=== PATIENT | male | born 1985 | race Caucasian/White ===

== ENCOUNTER 2016-11-17 08:10 | Emergency (ER) | payer SELFPAY ==
[~2016-11-17] VITALS: Ht 172.7 cm; Wt 80.0 kg
[2016-11-17 08:12] VITALS: BP 134/87; PULSE 92; RESP 24; TEMP 98.4; O2SAT 100
--- NOTE | 2016-11-17 08:17 | PD ---
HPI . left earache x 1 day Chief Complaint: ENT Complaint Time Seen by Provider: 08:17 Travel History International Travel<30 days: No Contact w/Intl Traveler<30days: No Traveled to known affect area: No History of Present Illness HPI 31-year-old male here with complaints of a left earache that started yesterday. Patient said that all of a sudden he developed some ear pain. He denies using Q-tips or sticking any objects into his ear. He does work outside. He denies any recent cold symptoms, fever or chills. He has no other complaints. PFSH Past Medical History Autoimmune Disease: No Blood Disorders: No Anxiety: Yes Depression: Yes Cancer: No Cardiovascular Problems: Yes Chest Pain: Yes Diabetes: No Diminished Hearing: No Deep Vein Thrombosis: Yes Endocrine: No Gastrointestinal Disorders: No Genitourinary: No Immune Disorder: No Implanted Vascular Access Dvce: No Musculoskeletal: No Neurologic: Yes Psychiatric: Yes Reproductive: No Respiratory: Yes (STATES HAS BLOOD CLOTS IN RIGHT LOWER LOBE; TAKES COUMADIN FOR THIS) Immunizations Current: Yes Myocardial Infarction: Yes Seizures: Yes (EPILEPSY) Thyroid Disease: No PNEUMOCCOCAL Vaccine (Year): 2 Past Surgical History Other Surgery: Yes Social History Alcohol Use: No Tobacco Use: Yes (1PPD) Substance Use: Yes (MARIJUANA DAILY) Allergies-Medications (Allergen,Severity, Reaction): Coded Allergies: Asparagus (Verified Allergy, Severe, HIVES, 11/17/16) Cantaloupe (Verified Allergy, Severe, HIVES, 11/17/16) Coconut (Verified Allergy, Severe, HIVES, 11/17/16) Depakote (Verified Allergy, Severe, SWELLING, 11/17/16) Dilantin (Verified Allergy, Severe, Rash/SWELLING, 11/17/16) Geodon (Verified Allergy, Severe, 11/17/16) Tegretol (Verified Allergy, Severe, 11/17/16) Phenobarbital (Verified Allergy, Unknown, 11/17/16) Uncoded Allergies: OKRA (Allergy, Severe, HIVES, 12/16/09) Reported Meds & Prescriptions Reported Meds & Active Scripts Active Amoxicillin 500 Mg Tab 500 Mg PO BID Cipro Hc Otic Drops (Ciprofloxacin/Hydrocortisone) 0.2-1% Susp 3 Drop LEFT EAR BID 7 Days Review of Systems General / Constitutional: No: Fever Eyes: No: Visual changes HENT: Positive: Earache, No: Headaches Cardiovascular: No: Chest Pain or Discomfort Respiratory: No: Shortness of Breath Gastrointestinal: No: Abdominal Pain Genitourinary: No: Dysuria Musculoskeletal: No: Pain Skin: No Rash Neurologic: No: Weakness Psychiatric: No: Depression Endocrine: No: Polydipsia Hematologic/Lymphatic: No: Easy Bruising Physical Exam Narrative GENERAL: AAO x 3, no acute distress, Well-nourished, well-developed patient. SKIN: Warm and dry. No visible rashes or bruising. HEAD: Normocephalic and atraumatic. EYES: No scleral icterus. No injection or drainage. ENT: No nasal drainage noted. Mucous membranes pink. Airway patent. Right TM normal. Left ear canal erythematous, edematous, mild purulence on exam. The TM is also bulging and erythematous. No posterior pharynx erythema, edema or exudates. No mastoid tenderness. There is tenderness with manipulation to the tragus. NECK: Supple, trachea midline. No JVD. No lymphadenopathy. CARDIOVASCULAR: Regular rate and rhythm without murmurs, gallops, or rubs. RESPIRATORY: Breath sounds equal bilaterally. No accessory muscle use. No rhonchi or rales. GASTROINTESTINAL: Visual inspection is normal EXTREMITIES: No cyanosis or edema. BACK: Nontender without obvious deformity. No CVA tenderness. PSYCH: AAO x 3, normal affect. Data Data Last Documented VS Vital Signs Date Time Temp Pulse Resp B/P Pulse Ox O2 Delivery O2 Flow Rate FiO2 11/17/16 08:12 98.4 92 24 134/87 100 Room Air [facility] Medical Decision Making Medical Screen Exam Complete: Yes Emergency Medical Condition: Yes Medical Record Reviewed: Yes Differential Diagnosis Left OM, left otitis media, less likely mastoiditis Narrative Course 31-year-old male here with complaints of a left earache that started yesterday. Patient said that all of a sudden he developed some ear pain. He denies using Q-tips or sticking any objects into his ear. He does work outside. He denies any recent cold symptoms, fever or chills. He has no other complaints. Patient seen and examined. He has obvious otitis externa on the left as well as otitis media. I recommend a course of antibiotics both oral and ear drops. I've discussed this with him. I recommend Tylenol and ibuprofen as needed for pain. I advised no poking into his ears. Patient verbalized understanding of instructions, questions were answered, and thanked me for their care. I advised them if their condition worsens, please return to the nearest emergency room for further care. Diagnosis Primary Impression: Left otitis externa Qualified Code: H60.312 - Acute diffuse otitis externa of left ear Additional Impression: Left otitis media Qualified Code: H66.92 - Left otitis media, unspecified chronicity, unspecified otitis media type Patient Instructions: General Instructions, Otitis Externa (ED), Otitis Media ( ED) Additional Instructions: Please return to emergency department if your symptoms return or worsen. Follow up with your primary care provider. Take medications as prescribed. Do not take any objects or Q-tips into your ears. Use Tylenol or Motrin as needed for pain. Med/Other Pt SpecificInfo: Prescription(s) given Scripts Amoxicillin 500 Mg [id number] Mg PO BID #20 TAB Ref 0 Prov:Barrington Philippe MD 11/17/16 Ciprofloxacin-Hydrocortisone Otic Drops (Cipro Hc Otic Drops)0.2-1% Susp3 Drop LEFT EAR BID 7 Days Ref 0 Prov:Barrington Philippe MD 11/17/16 Disposition: 01 DISCHARGE HOME Condition: Stable Catie Metz Nov 17, 2016 08:17
[2016-11-17] MEDS ORDERED: AMOX500T PO (08:20)
[2016-11-17] MEDS ORDERED: CIPRHC10A LEFT EAR (08:20)
== END 2016-11-17 08:39 | disposition home or self-care (01) ==
LOC: NEPK 08:10
DX: H66.92 Otitis media, unspecified, left ear (principal); H60.92 Unspecified otitis externa, left ear; I25.2 Old myocardial infarction; F17.210 Nicotine dependence, cigarettes, uncomplicated; Z86.718 Personal history of other venous thrombosis and embolism
CPT/HCPCS: 99282

== ENCOUNTER 2017-02-14 07:30 | Inpatient (IN) | payer SELFPAY ==
[~2017-02-14 07:30] MED LIST: AMOX500T PO; CIPRHC10A LEFT EAR
[2017-02-14 07:32] VITALS: BP 112/63; PULSE 124; TEMP 98.5; O2SAT 99
[2017-02-14 07:46] VITALS: BP 176/110; PULSE 88; RESP 25; O2SAT 100
[2017-02-14] MEDS ORDERED: SODIUM CHLOR 0.9% 1000 ML INJ 1,000 ML IV SCH (07:47)
[2017-02-14] MEDS ORDERED: ONDANSETRON HCL 4 MG/2 ML VIAL IVP ONE (08:00)
[2017-02-14] MEDS ORDERED: MORPHINE SULFATE 4 MG/ML INJ IV PUSH ONE (08:00)
[2017-02-14] MEDS ORDERED: MORPHINE SULFATE 8 MG/ML INJ ONE (08:00)
[2017-02-14] MEDS ORDERED: AMPICILLIN-SULBACTAM INJ 3 GM in SODIUM CHLORIDE 0.9% INJ 100 ML IV ONE (08:00)
[2017-02-14] MEDS ORDERED: SODIUM CHLORIDE 0.9% FLUSH 10 ML FLUSH IV FLUSH PRN (08:00)
--- NOTE | 2017-02-14 08:07 | PD ---
HPI Chief Complaint: GI Complaint Time Seen by Provider: 07:42 Travel History International Travel<30 days: No Contact w/Intl Traveler<30days: No Traveled to known affect area: No History of Present Illness HPI This is a 32-year-old male patient with a past medical history of seizure disorder and pulmonary embolism who is currently not taking any seizure medications who presents with a complaint of acute onset of abdominal pain. No abdominal pain is nonradiating per patient . She denies a decrease in appetite fever or chills but notes feeling very nauseated. Patient denies chest or back pain or shortness of breath Patient denies drug and alcohol abuse recently. Patient also denies recent trauma or urinary complaints. PFSH Past Medical History Autoimmune Disease: No Blood Disorders: No Anxiety: Yes Depression: Yes Cancer: No Cardiovascular Problems: Yes Chest Pain: Yes Diabetes: No Diminished Hearing: No Deep Vein Thrombosis: Yes Endocrine: No Gastrointestinal Disorders: No Genitourinary: No Immune Disorder: No Implanted Vascular Access Dvce: No Musculoskeletal: No Neurologic: Yes (HX seizures, states cleared by neuro) Psychiatric: Yes Reproductive: No Immunizations Current: Yes Myocardial Infarction: Yes Seizures: Yes (EPILEPSY) Thyroid Disease: No Tetanus Vaccination: > 5 Years PNEUMOCCOCAL Vaccine (Year): 2 Past Surgical History Surgical History: No Previous Surgery Other Surgery: Yes Social History Alcohol Use: No Tobacco Use: Yes (1PPD) Substance Use: Yes (MARIJUANA DAILY) Allergies-Medications (Allergen,Severity, Reaction): Coded Allergies: Asparagus (Verified Allergy, Severe, HIVES, 02/14/17) Cantaloupe (Verified Allergy, Severe, HIVES, 02/14/17) Coconut (Verified Allergy, Severe, HIVES, 02/14/17) Depakote (Verified Allergy, Severe, SWELLING, 02/14/17) Dilantin (Verified Allergy, Severe, Rash/SWELLING, 02/14/17) Geodon (Verified Allergy, Severe, 02/14/17) Tegretol (Verified Allergy, Severe, 02/14/17) Phenobarbital (Verified Allergy, Unknown, 02/14/17) Uncoded Allergies: OKRA (Allergy, Severe, HIVES, 12/16/09) Reported Meds & Prescriptions Reported Meds & Active Scripts Active Amoxicillin 500 Mg Tab 500 Mg PO BID Cipro Hc Otic Drops (Ciprofloxacin/Hydrocortisone) 0.2-1% Susp 3 Drop LEFT EAR BID 7 Days Review of Systems ROS Limitations: Clinical Condition Except as stated in HPI: all other systems reviewed are Neg General / Constitutional: No: Fever, Chills, Weight Gain, Weight Loss, Other Eyes: No: Diploplia, Blurred Vision, Photophobia, Drainage, Redness, Foreign Body Sensation, Pain, Tearing, Blind Spots, Visual changes, Blindness, Other HENT: No: Headaches, Vertigo, Lightheadedness, Sore Throat, Rhinitis, Rhinorrhea, Congestion, Nosebleed, Neck Stiffness, Neck Pain, Masses, Gingival Bleeding, Dental Difficulties, Ear Discharge, Earache, Other Cardiovascular: No: Chest Pain or Discomfort, Palpitations, Irregular Rhythm, Tachycardia, Diaphoresis, Syncope, Dyspnea on exertion, Varicosities, Edema, Cyanosis, Varicosities, Phlebitis, Claudication, Other Respiratory: No: Cough, Shortness of Breath, Wheezing, Sneezing, Orthopnea, Hemoptysis, Stridor, Night Sweats, Pleuritic Pain, Other Gastrointestinal: Positive: Nausea, Abdominal Pain, No: Vomiting, Diarrhea, Hematemesis, Hematochezia, Constipation, Changes in Bowel Habits, Indigestion, Dysphagia, Loss of Appetite, Other Genitourinary: No: Urgency, Frequency, Dysuria, Nocturia, Hematuria, Decreased Urinary Output, Oliguria, Hesitancy, Dribbling, Incontinence, Pelvic Pain, Flank Pain, Dyspareunia, Discharge, Dysmenorrhea, Menorrhagia, Metorrhagia, Vaginal Bleeding, Other Musculoskeletal: No: Myalgias, Arthralgias, Limited ROM, Weakness, Cramping, Edema, Pain, Atrophy, Other Skin: No Rash, No Itching, No Dryness, No Lumps, No Hives, No Change in Pigmentation, No Change in nails, No Alopecia, No Lesions, No Breast Lumps, No Breast Tenderness, No Breast Swelling, No Other Neurologic: No: Weakness, Dizziness, Syncope, Focal Abnormalities, Coordination Problem, Tremor, Ataxia, Headache, Change in Mentation, Slurred Speech, Paresthesia, Incontinence, Seizures, Sensory Disturbance, Other Psychiatric: No: Anxiety, Depression, Suicidal Ideations, Disorder of Thought, Mood Disorder, Substance Abuse, Homicidal Ideation, Other Endocrine: No: Heat Intolerance, Cold Intolerance, Polyuria, Polydipsia, Other Hematologic/Lymphatic: No: Easy Bruising, Lymph Node Enlargement, Other Physical Exam Exam Limitations: Clinical Condition Narrative GENERAL: 32-year-old male in moderately severe distress secondary to abdominal pain SKIN: Focused skin assessment warm/dry.no lesions no cyanosis no erythema HEAD: Atraumatic. Normocephalic. EYES: Pupils equal and round and reactive . No scleral icterus. No injection or drainage. ENT: No nasal bleeding or discharge. Dry oral mucosa NECK: Trachea midline. No JVD. CARDIOVASCULAR: S1-S2 appreciated. Regular rate and rhythm. No murmur appreciated. Pulses normal throughout. RESPIRATORY: No accessory muscle use. Clear to auscultation. Breath sounds equal bilaterally. GASTROINTESTINAL: Abdomen soft, positive right upper quadrant and right lower quadrant tenderness patient is guarding mildly but no true peritoneal signs noted rectal deferred at this time patient denies blood in stool MUSCULOSKELETAL: No obvious deformities. No clubbing. No cyanosis. No edema. NEUROLOGICAL: Awake and alert and oriented 3.. No obvious cranial nerve deficits. Motor and sensory exam grossly within normal limits. Normal speech. No meningeal signs. PSYCHIATRIC: Patient is very anxious ; insight and judgment normal. No suicidal or homicidal ideation. Data Data Last Documented VS Vital Signs Date Time Temp Pulse Resp B/P Pulse Ox O2 Delivery O2 Flow Rate FiO2 02/14/17 12:35 97.9 71 16 120/84 100 Nasal Cannula 2 Orders Complete Blood Count With Diff (02/14/17 07:47) Comprehensive Metabolic Panel (02/14/17 07:47) Lactic Acid (02/14/17 07:47) Urinalysis - C+S If Indicated (02/14/17 07:47) Ua Includes Microscopic (02/14/17 07:47) Ct Abd/Pel W Iv Contrast(Rout) (02/14/17 07:47) Iv Access Insert/Monitor (02/14/17 07:47) Ecg Monitoring (02/14/17 07:47) Oximetry (02/14/17 07:47) Ondansetron Inj (Zofran Inj) (02/14/17 08:00) Ampicillin-Sulbactam Inj (Unasyn Inj) (02/14/17 08:00) Sodium Chlor 0.9% 1000 Ml Inj (Ns 1000 M (02/14/17 07:47) Sodium Chloride 0.9% Flush (Ns Flush) (02/14/17 08:00) Electrocardiogram (02/14/17 07:47) Chest, Single Ap (02/14/17 07:47) Blood Culture (02/14/17 07:47) Drug Screen, Random Urine (02/14/17 08:01) Oxygen Administration (02/14/17 08:02) Morphine Inj (Morphine Inj) (02/14/17 09:00) Sodium Chlor 0.9% 1000 Ml Inj (Ns 1000 M (02/14/17 09:45) Iohexol 350 Inj (Omnipaque 350 Inj) (02/14/17 09:38) Sodium Chlor 0.9% 1000 Ml Inj (Ns 1000 M (02/14/17 12:00) Fentanyl Inj (Fentanyl Inj) (02/14/17 12:00) Promethazine Inj (Phenergan Inj) (02/14/17 12:00) Piperacil-Tazo 2.25 Gm Premix (Zosyn 2.2 (02/14/17 12:15) Consult General Surgery (02/14/17 ) (Hub Use Only)Inp Phy Cons/Ref (02/14/17 ) Us Testicles W Doppler (02/14/17 ) Admit Order (Ed Use Only) (02/14/17 13:15) Labs Laboratory Tests Test 02/14/17 02/14/17 02/14/17 07:45 08:07 10:15 White Blood Count 8.1 TH/MM3 Red Blood Count 5.08 MIL/MM3 Hemoglobin 15.7 GM/DL Hematocrit 46.1 % Mean Corpuscular Volume 90.9 FL Mean Corpuscular Hemoglobin 31.0 PG Mean Corpuscular Hemoglobin 34.1 % Concent Red Cell Distribution Width 13.7 % Platelet Count 267 TH/MM3 Mean Platelet Volume 9.0 FL Neutrophils (%) (Auto) 61.5 % Lymphocytes (%) (Auto) 29.1 % Monocytes (%) (Auto) 7.4 % Eosinophils (%) (Auto) 1.0 % Basophils (%) (Auto) 1.0 % Neutrophils # (Auto) 5.0 TH/MM3 Lymphocytes # (Auto) 2.4 TH/MM3 Monocytes # (Auto) 0.6 TH/MM3 Eosinophils # (Auto) 0.1 TH/MM3 Basophils # (Auto) 0.1 TH/MM3 CBC Comment DIFF FINAL Differential Comment Sodium Level 137 MEQ/L Potassium Level 3.5 MEQ/L Chloride Level 105 MEQ/L Carbon Dioxide Level 18.0 MEQ/L Anion Gap 14 MEQ/L Blood Urea Nitrogen 11 MG/DL Creatinine 1.28 MG/DL Estimat Glomerular Filtration 65 ML/MIN Rate Random Glucose 105 MG/DL Calcium Level 10.4 MG/DL Total Bilirubin 0.5 MG/DL Aspartate Amino Transf 17 U/L (AST/SGOT) Alanine Aminotransferase 22 U/L (ALT/SGPT) Alkaline Phosphatase 68 U/L Total Protein 8.1 GM/DL Albumin 4.7 GM/DL Lactic Acid Level 2.5 mmol/L Urine Color YELLOW Urine Turbidity CLEAR Urine pH 7.0 Urine Specific [place] 1.025 Urine Protein NEG mg/dL Urine Glucose (UA) NEG mg/dL Urine Ketones NEG mg/dL Urine Occult Blood NEG Urine Nitrite NEG Urine Bilirubin NEG Urine Urobilinogen LESS THAN 2.0 MG/DL Urine Leukocyte Esterase NEG Urine RBC 1 /hpf Urine WBC LESS THAN 1 /hpf Urine Oval Fat Bodies Microscopic Urinalysis Comment CULT NOT INDICATED Urine Opiates Screen NEG Urine Barbiturates Screen NEG Urine Amphetamines Screen NEG Urine Benzodiazepines Screen NEG Urine Cocaine Screen NEG Urine Cannabinoids Screen POS MDM Medical Decision Making Medical Screen Exam Complete: Yes Emergency Medical Condition: Yes Medical Record Reviewed: Yes Interpretation(s) EKG shows normal sinus rhythm early repolarization changes WBC is normal lactic acid is 2.5 CO2 is [address] scan of the abdomen or acute disease no evidence of appendicitis obstruction kidney stone gallbladder disease constipation Differential Diagnosis Differential diagnoses colitis and appendicitis obstruction right-sided diverticulitis nephrolithiasis testicular torsion Narrative Course This is a 32-year-old male patient who presents with acute onset of abdominal pain noted to be in the right lower quadrant itself is normal nausea patient has a lactic acid of 2.5 and continues to be tender specifically in the right lower quadrant in the ER patient medicated with narcotic analgesics [address] of the abdomen is negative but due to the ongoing pain and increased lactic acid level and location of the pain the patient will be admitted to the medicine service for intractable abdominal pain. Neurosurgery consult and spoke with Dr. Adams who will evaluate patient later. She hemodynamically stable currently. IV Zosyn given to patient blood cultures performed. UA negative for infection. Physician Communication Physician Communication Dr. Ludmila Adams Diagnosis Primary Impression: Intractable abdominal pain Additional Impressions: Elevated lactic acid level Dehydration Admitting Information Admitting Physician Requests: Admit Condition: Stable Shereen Mcgee MD Feb 14, 2017 08:07 Shereen Mcgee MD Feb 14, 2017 08:07
[2017-02-14 08:24] VITALS: BP 109/75; PULSE 48; RESP 18; O2SAT 98
--- NOTE | 2017-02-14 08:26 | RADRPT ---
EXAM DATE/TIME: 02/14/2017 07:55 [facility] COMPARISON: CHEST PA & LAT, January 05, 2016, 9:36. INDICATIONS : Severe right lower abdomen pain, short of breath, nausea. MEDICAL HISTORY : None. SURGICAL HISTORY : None. ENCOUNTER: Initial ACUITY: 1 day PAIN SCORE: 10/10 LOCATION: Bilateral chest FINDINGS: A single view of the chest demonstrates the lungs to be symmetrically aerated without evidence of mas s, infiltrate or effusion. The cardiomediastinal contours are unremarkable. Osseous structures are intact. CONCLUSION: 1. No acute cardiopulmonary findings. Pawel Herman MD on February 14, 2017 at 8:24 Board Certified Radiologist. This report was verified electronically.
[2017-02-14 08:32] LABS: BASOPHIL # 0.1 TH/MM3 (0-0.2); EOSINOPHIL # 0.1 TH/MM3 (0-0.4); HEMATOCRIT 46.1 % (39.0-51.0); HEMO FLAGS DIFF FINAL; LYMPH % 29.1 % (9.0-44.0); LYMPHOCYTE # 2.4 TH/MM3 (1.0-4.8); MEAN CELL VOLUME 90.9 FL (80.0-100.0); MEAN CORPUSCULAR HGB CONC 34.1 % (32.0-36.0); MONO % 7.4 % (0.0-8.0); NEUT % 61.5 % (16.0-70.0); PLATELET COUNT 267 TH/MM3 (150-450); RED BLOOD COUNT 5.08 MIL/MM3 (4.50-5.90); RED CELL DISTRIBUTION WIDTH 13.7 % (11.6-17.2); WHITE BLOOD COUNT 8.1 TH/MM3 (4.0-11.0)
[2017-02-14 08:54] LABS: ANION GAP 14 MEQ/L (5-15); AST (GOT) 17 U/L (15-37); BLOOD UREA NITROGEN 11 MG/DL (7-18); CHLORIDE 105 MEQ/L (98-107); GLOMERULAR FILTRATION RATE 65 ML/MIN (>89); POTASSIUM 3.5 MEQ/L (3.5-5.1); SODIUM (NA) 137 MEQ/L (136-145)
[2017-02-14 08:55] LABS: ALT (GPT) 22 U/L (12-78)
[2017-02-14 08:57] LABS: ALKALINE PHOSPHATASE 68 U/L (45-117); TOTAL BILIRUBIN ADULT 0.5 MG/DL (0.2-1.0)
[2017-02-14] MEDS ORDERED: MORPHINE SULFATE 8 MG/ML INJ IV PUSH ONE (09:00)
[2017-02-14] MEDS ORDERED: IOHEXOL 350 MG/ML 10 ML VIAL (for RAD DIAG) IV ONE (09:38)
[2017-02-14] MEDS ORDERED: SODIUM CHLOR 0.9% 1000 ML INJ 1,000 ML IV ONE ×2 (09:45→12:00)
--- NOTE | 2017-02-14 09:51 | RADRPT ---
EXAM DATE/TIME: 02/14/2017 09:20 [facility] COMPARISON: No previous studies available for comparison. INDICATIONS : Right sided pain IV CONTRAST: 96 cc Omnipaque 350 (iohexol) IV ORAL CONTRAST: No oral contrast ingested. RADIATION DOSE: 7.70 CTDIvol (mGy) MEDICAL HISTORY : Deep venous thrombosis. Cardiovascular disease SURGICAL HISTORY : None. ENCOUNTER: Initial ACUITY: 1 day PAIN SCALE: 6/10 LOCATION: Right abdomen TECHNIQUE: Volumetric scanning of the abdomen and pelvis was performed. Using automated exposure control and adjustment of the mA and/or kV according to patient size, radiation dose was kept as low as reasonably achievable to obtain optimal diagnostic quality images. DICOM format image data is av ailable electronically for review and comparison. FINDINGS: CT Abdomen: The liver, spleen, pancreas, kidneys, adrenals are unremarkable. There is no evidence for any appreciable pathological adenopathy, free fluid, or bowel obstruction. CT pelvis: There is no evidence for mass, abscess formation, or any significant adenopathy within the pelvis. The appendix is not clearly visualized, however no definite signs of appendicitis is seen. CONCLUSION: Essentially unremarkable study. Constantin Epperson MD on February 14, 2017 at 9:44 Board Certified Radiologist. This report was verified electronically.
[2017-02-14 10:33] LABS: BLOOD, URINE NEG (NEG); COMMENT (UR) CULT NOT INDICATED; CULTURE IF INDICATED CULT NOT INDICATED; GLUCOSE,URINE NEG (NEG); KETONE, URINE NEG (NEG); NITRITE,URINE NEG (NEG); URINE COLOR YELLOW (YELLW/STRAW)
[2017-02-14 10:39] LABS: AMPHETAMINE, URINE NEG (NEG); BARBITURATES, URINE NEG (NEG); COCAINE, URINE NEG (NEG)
[2017-02-14] MEDS ORDERED: PROMETHAZINE INJ 25 MG/ML VIAL IM ONE (12:00)
[2017-02-14] MEDS ORDERED: PIPERACIL-TAZO 2.25 GM PREMIX 50 ML IV ONE (12:15)
[2017-02-14 12:35] VITALS: BP 120/84; PULSE 71; RESP 16; TEMP 97.9; O2SAT 100
--- NOTE | 2017-02-14 13:16 | HHI.HP ---
[facility] No Primary Care Physician Admission Diagnosis Diagnoses: Travel History International Travel<30 Days: No Contact w/Intl Traveler <30 Da: No Traveled to Known Affected Are: No Past Family Social History Past Medical History Pulmonary embolism Seizure disorder, not on antiepileptics Anxiety Past Surgical History Denies any prior surgeries Allergies: Coded Allergies: Asparagus (Verified Allergy, Severe, HIVES, 02/14/17) Cantaloupe (Verified Allergy, Severe, HIVES, 02/14/17) Coconut (Verified Allergy, Severe, HIVES, 02/14/17) Depakote (Verified Allergy, Severe, SWELLING, 02/14/17) Dilantin (Verified Allergy, Severe, Rash/SWELLING, 02/14/17) Geodon (Verified Allergy, Severe, 02/14/17) Tegretol (Verified Allergy, Severe, 02/14/17) Phenobarbital (Verified Allergy, Unknown, 02/14/17) Uncoded Allergies: OKRA (Allergy, Severe, HIVES, 12/16/09) Active Ordered Medications Current Medications Medications (Trade) Dose Ordered Sig/Timoteo Route Start Time Stop Time Status Last Admin (NS Flush) 2 ml UNSCH PRN IV FLUSH 02/14/17 08:00 02/14/17 08:17 Social History Denies any alcohol use Smokes tobacco, 1 PPD Daily marijuana use Denies any other illicit drug use Physical Exam Vital Signs Vital Signs Date Time Temp Pulse Resp B/P Pulse Ox O2 Delivery O2 Flow Rate FiO2 02/14/17 12:35 97.9 71 16 120/84 100 Nasal Cannula 2 02/14/17 09:00 18 02/14/17 08:26 18 02/14/17 08:24 48 18 109/75 98 Nasal Cannula 2 02/14/17 07:46 88 25 176/110 100 Nasal Cannula 2 02/14/17 07:45 100 Nasal Cannula 2 02/14/17 07:32 98.5 124 112/63 99 Physical Exam GENERAL: This is a well-nourished, well-developed patient, in no apparent distress. SKIN: No rashes, ecchymoses or lesions. Cool and dry. HEAD: Atraumatic. Normocephalic. No temporal or scalp tenderness. EYES: Pupils equal round and reactive. Extraocular motions intact. No scleral icterus. No injection or drainage. ENT: Nose without bleeding, purulent drainage or septal hematoma. Throat without erythema, tonsillar hypertrophy or exudate. Uvula midline. Airway patent. NECK: Trachea midline. No JVD or lymphadenopathy. Supple, nontender, no meningeal signs. CARDIOVASCULAR: Regular rate and rhythm without murmurs, gallops, or rubs. RESPIRATORY: Clear to auscultation. Breath sounds equal bilaterally. No wheezes , rales, or rhonchi. GASTROINTESTINAL: Abdomen soft, non-tender, nondistended. No hepato-splenomegaly , or palpable masses. No guarding. MUSCULOSKELETAL: Extremities without clubbing, cyanosis, or edema. No joint tenderness, effusion, or edema noted. No calf tenderness. Negative Homans sign bilaterally. NEUROLOGICAL: Awake and alert. Cranial nerves II through XII intact. Motor and sensory grossly within normal limits. Five out of 5 muscle strength in all muscle groups. Normal speech. Laboratory Laboratory Tests Test 02/14/17 02/14/17 02/14/17 07:45 08:07 10:15 White Blood Count 8.1 Red Blood Count 5.08 Hemoglobin 15.7 Hematocrit 46.1 Mean Corpuscular Volume 90.9 Mean Corpuscular Hemoglobin 31.0 Mean Corpuscular Hemoglobin 34.1 Concent Red Cell Distribution Width 13.7 Platelet Count 267 Mean Platelet Volume 9.0 Neutrophils (%) (Auto) 61.5 Lymphocytes (%) (Auto) 29.1 Monocytes (%) (Auto) 7.4 Eosinophils (%) (Auto) 1.0 Basophils (%) (Auto) 1.0 Neutrophils # (Auto) 5.0 Lymphocytes # (Auto) 2.4 Monocytes # (Auto) 0.6 Eosinophils # (Auto) 0.1 Basophils # (Auto) 0.1 CBC Comment DIFF FINAL Differential Comment Sodium Level 137 Potassium Level 3.5 Chloride Level 105 Carbon Dioxide Level 18.0 Anion Gap 14 Blood Urea Nitrogen 11 Creatinine 1.28 Estimat Glomerular Filtration 65 Rate Random Glucose 105 Calcium Level 10.4 Total Bilirubin 0.5 Aspartate Amino Transf 17 (AST/SGOT) Alanine Aminotransferase 22 (ALT/SGPT) Alkaline Phosphatase 68 Total Protein 8.1 Albumin 4.7 Lactic Acid Level 2.5 Urine Color YELLOW Urine Turbidity CLEAR Urine pH 7.0 Urine Specific [place] 1.025 Urine Protein NEG Urine Glucose (UA) NEG Urine Ketones NEG Urine Occult Blood NEG Urine Nitrite NEG Urine Bilirubin NEG Urine Urobilinogen LESS THAN 2.0 Urine Leukocyte Esterase NEG Urine RBC 1 Urine WBC LESS THAN 1 Urine Oval Fat Bodies Microscopic Urinalysis Comment CULT NOT INDICATED Urine Opiates Screen NEG Urine Barbiturates Screen NEG Urine Amphetamines Screen NEG Urine Benzodiazepines Screen NEG Urine Cocaine Screen NEG Urine Cannabinoids Screen POS Date/Time Procedure Status Source Growth 02/14/17 08:07 Aerobic Blood Culture Received Blood Line Pending 02/14/17 08:07 Anaerobic Blood Culture Received Blood Line Pending Result Diagram: 02/14/17 0745 02/14/17 0745 Madeline Bowers PA-C Feb 14, 2017 13:16
[2017-02-14 13:41] VITALS: RESP 16
--- NOTE | 2017-02-14 14:02 | MB ---
cc: ALETA SHIPMAN M.D. DATE OF CONSULTATION: 02/14/2017 REASON FOR CONSULTATION Abdominal pain, rule out appendicitis. HISTORY OF PRESENT ILLNESS Mr. Herrera is a pleasant 32-year-old gentleman who states he awoke this morning from sleep about 5:00 a.m. with right lower quadrant and suprapubic abdominal pain. He states that the pain worsened. He states he tried to go to work but when he got to work the pain became debilitating. He was screaming in pain and had to have a friend drive him to the hospital as fast as he could. The pain persisted. The pain mainly stayed in the right lower quadrant with radiation across the suprapubic and into the left lower quadrant. He reports associated nausea. He denies any fever or chills. He reports a normal bowel movement last night and no recent change in bowel habits. He denied any hematuria. The patient was seen and evaluated in the ER. His work-up included lab work which showed no elevation of his white count or left shift and a normal CT scan of the abdomen and pelvis. Surgical consultation was requested to rule out appendicitis. The patient denies any previous episodes of abdominal pain. He denies any recent alcohol intake. He denies any trauma to the abdominal wall or right lower quadrant. PAST MEDICAL HISTORY 1. Seizure disorder. 2. History of DVT. PAST SURGICAL HISTORY None. MEDICATIONS He states he takes no active medications. ALLERGIES HE HAS EXTENSIVE ALLERGIES, MOSTLY TO FOOD AND SEIZURE MEDICATIONS. THESE WERE WELL-DOCUMENTED IN THE CHART. HE ALSO REPORTS ALLERGIES TO AMOXICILLIN AND CIPRO. SOCIAL HISTORY He denies alcohol use, states he has not had alcohol for over five years. He reports that he smokes about a pack a day of cigarettes and an occasional marijuana cigarette. REVIEW OF SYSTEMS Please see HPI. PHYSICAL EXAMINATION VITAL SIGNS: Temperature 98, pulse 50, blood pressure 120/80, respiratory rate 20. GENERAL: In general this is a pleasant young gentleman sitting in the emergency room bed with no obvious distress. HEENT: Sclera is white. Oropharynx is clear and moist. NECK: Supple. No masses. LUNGS: Clear to auscultation bilaterally. HEART: S1, S2. No murmur. ABDOMEN: Diffusely soft. The patient does have some tenderness in the right lower quadrant, left lower quadrant and suprapubic areas. He has some mild voluntary guarding but can be distracted and the guarding resolves. He has no abdominal masses. Specifically he has no obvious inguinal hernias. He has active bowel sounds. EXTREMITIES: Free range of motion x4. NEUROLOGIC: Alert and oriented x3. LABORATORY White blood cell count is normal at 8.1. No evidence of a shaft. Hemoglobin is 15, platelet count 267. Electrolytes are all within normal limits. Urinalysis is negative. IMAGING CT scan of the abdomen and pelvis was reviewed. I see no evidence of acute inflammatory process in the small bowel or colon or right lower quadrant. Specifically, I do not see any evidence of acute appendicitis by imaging. IMPRESSION Abdominal pain, undetermined etiology. PLAN At this point his clinical history and physical exam, laboratory and imaging are not consistent with acute appendicitis. I am unsure of the exact etiology of his pain but I do not believe that it requires immediate surgical intervention. We discussed options for treatment including overnight observation with the medical service and he declined. He states he has four small children at home and no one to help him as a caregiver and he needs to return home this evening to help watch over his children. He is going to have his grandmother fly back from [place] to assist. I explained to him that he could be safely discharged home as his vital signs are all normal and his lab work is normal, and he could be given some pain medicine by the emergency department physician. I advised him if his pain persisted overnight he should return to the emergency room first thing in the morning and at that time we can consider diagnostic laparoscopy. Overall I explained to him that I felt the yield on a diagnostic laparoscopy would be low based on his current findings. He expressed understanding. He states he would like to go home later today if possible. He will return to the emergency department either later tonight or first thing in the morning if his abdominal pain persists. I would recommend discharge with oral antibiotics if that is with the patient wants. If the patient would stay I would ask that he be admitted to the medical service for further work-up and evaluation as I do not believe he has a surgical etiology of his pain at this time. MD KATHLEEN Mckinley/MELANY /1:35 PM /1:55 PM
[2017-02-14] MEDS ORDERED: CIPR-9 PO (14:11)
[2017-02-14] MEDS ORDERED: ZOFR4TAB PO (14:12)
[2017-02-14] MEDS ORDERED: METR-1 PO (14:12)
[2017-02-14] MEDS ORDERED: TYLETAB34 PO (14:13)
--- NOTE | 2017-02-14 16:48 | EKG ---
Date Performed: 02/14/2017 Time Performed: 07:53:00 PTAGE: 32 years EKG: Sinus rhythm EARLY REPOLARIZATION Compared to prior tracing no significant change DOCTOR: Carlos Montoya Interpretating Date/Time 02/14/2017 16:47:19
== END 2017-02-14 14:53 | disposition left against medical advice (07) | DRG 392 ==
LOC: NEPC 07:30 → NEDA 13:17
PROVIDERS: ADMIT Hospitalist; ATTEND Hospitalist
DX: R10.9 Unspecified abdominal pain (principal); F32.9 Major depressive disorder, single episode, unspecified; F17.210 Nicotine dependence, cigarettes, uncomplicated; E86.0 Dehydration; F41.9 Anxiety disorder, unspecified; Z86.711 Personal history of pulmonary embolism; Z86.718 Personal history of other venous thrombosis and embolism; I25.2 Old myocardial infarction; R11.0 Nausea
CPT/HCPCS: 71010; 74177; 80053; 80307; 81001; 83605; 85025; 87040; 93005; 96361; 96365; 96372; 96375; J0295; J2270; J2405; J2543; J2550; J3010; J7030; Q9967

== ENCOUNTER 2017-02-15 08:04 | Emergency (ER) | payer SELFPAY ==
[~2017-02-15 08:04] MED LIST changes: +CIPR-9 PO; +METR-1 PO; +TYLETAB34 PO; +ZOFR4TAB PO
[2017-02-15 08:06] VITALS: BP 150/83; PULSE 92; TEMP 98.2; O2SAT 98
--- NOTE | 2017-02-15 09:01 | PD ---
HPI Chief Complaint: GI Complaint Time Seen by Provider: 08:34 Travel History International Travel<30 days: No Contact w/Intl Traveler<30days: No Traveled to known affect area: No History of Present Illness HPI This patient complains of severe abdominal pain. Location is right upper quadrant and right lower quadrant. He was seen here yesterday for had fairly comprehensive evaluation including blood and urine and CT of abdomen and pelvis and general surgery consultation. He presents having a lot of pain saying he is no better and wants to have it evaluated by the surgeon. He denies fever. He vomited once this morning. He had a normal bowel movement and no diarrhea or constipation. Has not had abdominal surgery. No alleviating factors. Duration 2 days. Pain is rated as severe. PFSH Past Medical History Autoimmune Disease: No Blood Disorders: No Anxiety: Yes Depression: Yes Cancer: No Cardiovascular Problems: Yes Chest Pain: Yes Diabetes: No Diminished Hearing: No Deep Vein Thrombosis: Yes Endocrine: No Gastrointestinal Disorders: No Genitourinary: No Immune Disorder: No Implanted Vascular Access Dvce: No Musculoskeletal: No Neurologic: Yes (HX seizures, states cleared by neuro) Psychiatric: Yes Reproductive: No Immunizations Current: Yes Myocardial Infarction: Yes Seizures: Yes (EPILEPSY) Thyroid Disease: No PNEUMOCCOCAL Vaccine (Year): 2 Past Surgical History Other Surgery: Yes Social History Alcohol Use: No Tobacco Use: Yes (1PPD) Substance Use: Yes (MARIJUANA DAILY) Allergies-Medications (Allergen,Severity, Reaction): Coded Allergies: Asparagus (Verified Allergy, Severe, HIVES, 02/15/17) Cantaloupe (Verified Allergy, Severe, HIVES, 02/15/17) Coconut (Verified Allergy, Severe, HIVES, 02/15/17) Depakote (Verified Allergy, Severe, SWELLING, 02/15/17) Dilantin (Verified Allergy, Severe, Rash/SWELLING, 02/15/17) Geodon (Verified Allergy, Severe, 02/15/17) Tegretol (Verified Allergy, Severe, 02/15/17) Phenobarbital (Verified Allergy, Unknown, 02/15/17) Uncoded Allergies: OKRA (Allergy, Severe, HIVES, 12/16/09) Reported Meds & Prescriptions Reported Meds & Active Scripts Active No Active Prescriptions or Reported Medications Review of Systems General / Constitutional: No: Fever Eyes: No: Visual changes HENT: No: Headaches Cardiovascular: No: Chest Pain or Discomfort Respiratory: No: Shortness of Breath Gastrointestinal: Positive: Nausea, Vomiting, Abdominal Pain Genitourinary: No: Dysuria Musculoskeletal: No: Pain Skin: No Rash Neurologic: No: Weakness Psychiatric: No: Depression Endocrine: No: Polydipsia Hematologic/Lymphatic: No: Easy Bruising Physical Exam Narrative GENERAL: Well-nourished, well-developed patient with abdominal pain. SKIN: Focused skin assessment reveals no rash and nodules. Skin is Warm and dry. Multiple tattoos noted HEAD: Atraumatic. Normocephalic. EYES: Pupils equal and round. No scleral icterus. No injection or drainage. ENT: No nasal bleeding or discharge. Mucous membranes pink and moist. NECK: Trachea midline. No JVD. CARDIOVASCULAR: Regular rate and rhythm. No murmur appreciated. RESPIRATORY: No accessory muscle use. Clear to auscultation. Breath sounds equal bilaterally. GASTROINTESTINAL: Abdomen soft, right upper quadrant and right lower quadrant is tender and has right flank tenderness, nondistended. Hepatic and splenic margins not palpable. MUSCULOSKELETAL: No obvious deformities. No clubbing. No cyanosis. No edema. NEUROLOGICAL: Awake and alert. No obvious cranial nerve deficits. Motor grossly within normal limits. Normal speech. PSYCHIATRIC: Appropriate mood and affect; insight and judgment questionable. Data Data Last Documented VS Vital Signs Date Time Temp Pulse Resp B/P Pulse Ox O2 Delivery O2 Flow Rate FiO2 02/15/17 09:35 20 02/15/17 08:06 98.2 92 150/83 98 Orders Iv Access Insert/Monitor (02/15/17 08:52) Complete Blood Count With Diff (02/15/17 08:52) Lactic Acid (02/15/17 09:01) Ct Abd/Pel W/O Iv Contrast (02/15/17 ) Diatrizoate Liq ( Gastroview Liq) (02/15/17 09:11) Oral Contrast - Adult (02/15/17 09:13) Ondansetron Inj (Zofran Inj) (02/15/17 09:30) Morphine Inj (Morphine Inj) (02/15/17 09:30) Morphine Inj (Morphine Inj) (02/15/17 09:28) Labs Laboratory Tests Test 02/15/17 02/15/17 09:01 09:08 White Blood Count 5.1 TH/MM3 Red Blood Count 4.24 MIL/MM3 Hemoglobin 13.4 GM/DL Hematocrit 38.2 % Mean Corpuscular Volume 90.1 FL Mean Corpuscular Hemoglobin 31.6 PG Mean Corpuscular Hemoglobin 35.1 % Concent Red Cell Distribution Width 13.8 % Platelet Count 205 TH/MM3 Mean Platelet Volume 8.4 FL Neutrophils (%) (Auto) 60.2 % Lymphocytes (%) (Auto) 30.1 % Monocytes (%) (Auto) 7.2 % Eosinophils (%) (Auto) 1.5 % Basophils (%) (Auto) 1.0 % Neutrophils # (Auto) 3.1 TH/MM3 Lymphocytes # (Auto) 1.5 TH/MM3 Monocytes # (Auto) 0.4 TH/MM3 Eosinophils # (Auto) 0.1 TH/MM3 Basophils # (Auto) 0.0 TH/MM3 CBC Comment DIFF FINAL Differential Comment Lactic Acid Level 1.6 mmol/L MDM Medical Decision Making Medical Screen Exam Complete: Yes Emergency Medical Condition: Yes Medical Record Reviewed: Yes Differential Diagnosis Unknown etiology abdominal pain, colitis, ischemic bowel Narrative Course I have reviewed the patient's electronic medical record. Reviewed the extensive workup from yesterday I called and spoke with general surgeon Dr. Laith yee who saw this patient yesterday. He recommends that I do a repeat CT of abdomen and pelvis with oral contrast today. He does not intend any surgery. He reports that there is nothing surgical indicated. IV placed CBC is normal CT of abdomen and pelvis with oral contrast is normal lactate is normal 2 days running extensive workups are normal. He clearly doesn't have anything emergent. Has normal vital signs and a soft benign abdomen. He is stable for outpatient follow-up. Diagnosis Primary Impression: Abdominal pain Qualified Code: R10.9 - Abdominal pain, unspecified location Additional Instructions: The patient was advised to follow up with their physician and return if they worsen. Med/Other Pt SpecificInfo: Other Scripts No Active Prescriptions or Reported Meds Disposition: DISCHARGE HOME Condition: Stable Damian Olivo MD Feb 15, 2017 09:01
[2017-02-15 09:11] LABS: AUTOMATED NEUTROPHIL # 3.1 TH/MM3 (1.8-7.7); EOSINOPHIL # 0.1 TH/MM3 (0-0.4); EOSINOPHIL % 1.5 % (0.0-4.0); HEMATOCRIT 38.2 % (39.0-51.0); HEMO FLAGS DIFF FINAL; LYMPH % 30.1 % (9.0-44.0); LYMPHOCYTE # 1.5 TH/MM3 (1.0-4.8); MEAN CELL VOLUME 90.1 FL (80.0-100.0); MEAN CORPUSCULAR HEMOGLOBIN 31.6 PG (27.0-34.0); MEAN CORPUSCULAR HGB CONC 35.1 % (32.0-36.0); MONO % 7.2 % (0.0-8.0); NEUT % 60.2 % (16.0-70.0); PLATELET COUNT 205 TH/MM3 (150-450); RED BLOOD COUNT 4.24 MIL/MM3 (4.50-5.90); RED CELL DISTRIBUTION WIDTH 13.8 % (11.6-17.2); WHITE BLOOD COUNT 5.1 TH/MM3 (4.0-11.0)
[2017-02-15] MEDS ORDERED: DIATRIZOATE MEGLUM/DIATRIZOATE SOD 9 ML CUP ONE (09:11)
[2017-02-15] MEDS ORDERED: MORPHINE SULFATE 8 MG/ML INJ ONE (09:28)
[2017-02-15] MEDS ORDERED: MORPHINE SULFATE 4 MG/ML INJ IV PUSH ONE (09:30)
[2017-02-15] MEDS ORDERED: ONDANSETRON HCL 4 MG/2 ML VIAL IV ONE (09:30)
--- NOTE | 2017-02-15 12:14 | RADRPT ---
EXAM DATE/TIME: 02/15/2017 11:39 [facility] COMPARISON: No previous studies available for comparison. INDICATIONS : Severe abdomen pain for two days pain is bilateral lower quadrant,more on the right ORAL CONTRAST: Prescribed oral contrast ingested. RADIATION DOSE: 9.96 CTDIvol (mGy) MEDICAL HISTORY : Seizures. Deep venous thrombosis. SURGICAL HISTORY : None. ENCOUNTER: Initial ACUITY: 2 days PAIN SCALE: 7/10 LOCATION: Bilateral lower quadrant Abdomen TECHNIQUE: Volumetric scanning of the abdomen and pelvis was performed. Using automated exposure control and ad justment of the mA and/or kV according to patient size, radiation dose was kept as low as reasonably achievable to obtain optimal diagnostic quality images. DICOM format image data is available electro nically for review and comparison. FINDINGS: CT Abdomen: The liver, spleen, pancreas, kidneys, adrenals are unremarkable. There is no evidence for any appreciable pathological adenopathy, free fluid, or bowel obstruction. There is no evidence for any stones in the kidneys or the course of the ureters on either side. There is no hydronephrosis. CT pelvis: There is no evidence for mass, abscess formation, or any significant adenopathy within the pelvis. The prostate gland is inhomogeneous and measures 2.7 x 3.4 cm in AP and transverse diameters and nonspecific. The appendix appears intact without definite signs of appendicitis. CONCLUSION: Essentially unremarkable study. Constantin Epperson MD on February 15, 2017 at 12:09 Board Certified Radiologist. This report was verified electronically.
[2017-02-15 12:42] VITALS: BP 138/80; PULSE 88; RESP 20; O2SAT 98
== END 2017-02-15 12:52 | disposition home or self-care (01) ==
LOC: NEPC 08:04
DX: R10.31 Right lower quadrant pain (principal); R10.11 Right upper quadrant pain; F41.9 Anxiety disorder, unspecified; F32.9 Major depressive disorder, single episode, unspecified; G40.909 Epilepsy, unspecified, not intractable, without status epilepticus; I25.2 Old myocardial infarction; Z86.718 Personal history of other venous thrombosis and embolism
CPT/HCPCS: 74176; 83605; 85025; 96374; 96375; 99285; J2270; J2405; Q9963

== ENCOUNTER 2017-03-28 15:05 | Observation (INO) | payer SELFPAY ==
[~2017-03-28] VITALS: Ht 177.8 cm; Wt 80.0 kg
[2017-03-28 15:09] VITALS: BP 164/95; PULSE 81; RESP 17; TEMP 99.1; O2SAT 99
[2017-03-28] MEDS ORDERED: SODIUM CHLOR 0.9% 1000 ML INJ 1,000 ML IV SCH ×2 (15:13→20:00)
[2017-03-28] MEDS ORDERED: SODIUM CHLORIDE 0.9% FLUSH 5 ML FLUSH IV FLUSH PRN (15:15)
[2017-03-28 15:17] VITALS: O2SAT 100
[2017-03-28] MEDS ORDERED: NALOXONE HCL 2 MG/2 ML VIAL IV PUSH ONE (15:30)
--- NOTE | 2017-03-28 15:41 | RADRPT ---
EXAM DATE/TIME: 03/28/2017 15:28 [facility] COMPARISON: CHEST SINGLE AP, February 14, 2017, 7:55. INDICATIONS : Syncope. MEDICAL HISTORY : seizures SURGICAL HISTORY : None. ENCOUNTER: Initial ACUITY: 1 day PAIN SCORE: Non-responsive. LOCATION: Bilateral chest FINDINGS: A single view of the chest demonstrates the lungs to be symmetrically aerated without evidence of mas s, infiltrate or effusion. The cardiomediastinal contours are unremarkable. Osseous structures are intact. CONCLUSION: No acute disease. Harmeet Linares Jr., MD on March 28, 2017 at 15:39 Board Certified Radiologist. This report was verified electronically.
[2017-03-28 15:54] LABS: AUTOMATED NEUTROPHIL # 9.7 TH/MM3 (1.8-7.7); BASOPHIL # 0.1 TH/MM3 (0-0.2); BASOPHIL % 0.4 % (0.0-2.0); EOSINOPHIL % 0.3 % (0.0-4.0); HEMATOCRIT 45.2 % (39.0-51.0); HEMO FLAGS DIFF FINAL; LYMPH % 17.3 % (9.0-44.0); LYMPHOCYTE # 2.2 TH/MM3 (1.0-4.8); MEAN CORPUSCULAR HEMOGLOBIN 31.1 PG (27.0-34.0); MEAN CORPUSCULAR HGB CONC 33.4 % (32.0-36.0); MONO % 6.4 % (0.0-8.0); NEUT % 75.6 % (16.0-70.0); PLATELET COUNT 252 TH/MM3 (150-450); RED BLOOD COUNT 4.86 MIL/MM3 (4.50-5.90); RED CELL DISTRIBUTION WIDTH 13.6 % (11.6-17.2); WHITE BLOOD COUNT 12.9 TH/MM3 (4.0-11.0)
[2017-03-28 16:00] LABS: BACTERIA, URINE RARE /hpf; BLOOD, URINE TRACE (NEG); COMMENT (UR) CATH-CULTURE IND; CULTURE IF INDICATED CATH CULTURE IND; GLUCOSE,URINE NEG (NEG); KETONE, URINE 10 mg/dL (NEG); MUCUS URINE FEW /lpf (OCC); NITRITE,URINE NEG (NEG); PH, URINE 6.5 (5.0-8.5); URINE COLOR YELLOW (YELLW/STRAW)
[2017-03-28 16:16] LABS: APTT (PATIENT) 21.1 SEC (24.3-30.1); PROTHROMBIN TIME - PATIENT 10.6 SEC (9.8-11.6)
--- NOTE | 2017-03-28 16:21 | PD ---
HPI Chief Complaint: Altered Mental Status Time Seen by Provider: 15:13 Travel History International Travel<30 days: No Contact w/Intl Traveler<30days: No Traveled to known affect area: No History of Present Illness HPI 32-year-old male presents after being dropped off by a friend at our triage with altered mental status. He is nonverbal here and cannot give me history. Report from triage staff was that the friend said that he was having heat exhaustion. He points to his chest when you ask him if he has pain. History is significantly limited PFSH Past Medical History Narrative Medical By records Autoimmune Disease: No Blood Disorders: No Anxiety: Yes Depression: Yes Cancer: No Cardiovascular Problems: Yes Chest Pain: Yes Diabetes: No Diminished Hearing: No Deep Vein Thrombosis: Yes Endocrine: No Gastrointestinal Disorders: No Genitourinary: No Immune Disorder: No Implanted Vascular Access Dvce: No Musculoskeletal: No Neurologic: Yes (HX seizures, states cleared by neuro) Psychiatric: Yes Reproductive: No Immunizations Current: Yes Myocardial Infarction: Yes Seizures: Yes Thyroid Disease: No Tetanus Vaccination: > 5 Years Influenza Vaccination: No PNEUMOCCOCAL Vaccine (Year): 2 Past Surgical History Narrative Surgical By records Other Surgery: Yes Social History Narrative Social History by records Alcohol Use: No Tobacco Use: Yes (1PPD) Substance Use: Yes (MARIJUANA DAILY) Allergies-Medications (Allergen,Severity, Reaction): Coded Allergies: asparagus (Unverified Allergy, Severe, HIVES, 03/28/17) carbamazepine (Unverified Allergy, Severe, 03/28/17) coconut (Unverified Allergy, Severe, HIVES, 03/28/17) divalproex sodium (Unverified Allergy, Severe, SWELLING, 03/28/17) melon (Unverified Allergy, Severe, HIVES, 03/28/17) phenytoin (Unverified Allergy, Severe, Rash/SWELLING, 03/28/17) ziprasidone (Unverified Allergy, Severe, 03/28/17) phenobarbital (Unverified Allergy, Unknown, 03/28/17) Uncoded Allergies: OKRA (Allergy, Severe, HIVES, 12/16/09) Reported Meds & Prescriptions Reported Meds & Active Scripts Active No Active Prescriptions or Reported Medications Review of Systems ROS Limitations: Altered Mental Status Except as stated in HPI: all other systems reviewed are Neg Physical Exam Exam Limitations: Altered Mental Status Narrative GENERAL: Well-nourished, well-developed patient. SKIN: Warm and dry. HEAD: Normocephalic and atraumatic. EYES: No injection or drainage. Pupils equal at 2 mm bilaterally ENT: No nasal drainage noted. NECK: Supple, trachea midline. No meningeal signs CARDIOVASCULAR: Regular rate and rhythm RESPIRATORY: Breath sounds equal bilaterally at apices. No accessory muscle use. GASTROINTESTINAL: Abdomen soft, nondistended. NEUROLOGICAL: Eyes open on own, moves all extremities and follows commands, will not talk Data Data Last Documented VS Vital Signs Date Time Temp Pulse Resp B/P (MAP) Pulse Ox O2 Delivery O2 Flow Rate FiO2 03/28/17 16:55 61 16 144/88 (106) 99 Room Air 03/28/17 15:09 99.1 Orders Orders Electrocardiogram (03/28/17 ) Electrocardiogram (03/28/17 15:13) Ammonia (03/28/17 15:13) Complete Blood Count With Diff (03/28/17 15:13) Comprehensive Metabolic Panel (03/28/17 15:13) Creatine Kinase (Cpk) (03/28/17 15:13) Prothrombin Time / Inr (Pt) (03/28/17 15:13) Act Partial Throm Time (Ptt) (03/28/17 15:13) Troponin I (03/28/17 15:13) Thyroid Stimulating Hormone (03/28/17 15:13) Urinalysis - C+S If Indicated (03/28/17 15:13) Lactic Acid Sepsis Protocol (03/28/17 15:13) Blood Culture (03/28/17 15:13) Chest, Single Ap (03/28/17 15:13) Ct Brain W/O Iv Contrast(Rout) (03/28/17 15:13) Blood Glucose (03/28/17 15:13) Ecg Monitoring (03/28/17 15:13) Iv Access Insert/Monitor (03/28/17 15:13) Oximetry (03/28/17 15:13) Sodium Chloride 0.9% Flush (Ns Flush) (03/28/17 15:15) Sodium Chlor 0.9% 1000 Ml Inj (Ns 1000 M (03/28/17 15:13) Drug Screen, Random Urine (03/28/17 15:13) Alcohol (Ethanol) (03/28/17 15:13) Naloxone Inj (Narcan Inj) (03/28/17 15:30) Urine Culture (03/28/17 15:35) Admit Order (Ed Use Only) (03/28/17 17:12) Labs Laboratory Tests Test 03/28/17 15:25 03/28/17 15:30 03/28/17 15:35 White Blood Count 12.9 TH/MM3 Red Blood Count 4.86 MIL/MM3 Hemoglobin 15.1 GM/DL Hematocrit 45.2 % Mean Corpuscular Volume 93.0 FL Mean Corpuscular Hemoglobin 31.1 PG Mean Corpuscular Hemoglobin Concent 33.4 % Red Cell Distribution Width 13.6 % Platelet Count 252 TH/MM3 Mean Platelet Volume 8.4 FL Neutrophils (%) (Auto) 75.6 % Lymphocytes (%) (Auto) 17.3 % Monocytes (%) (Auto) 6.4 % Eosinophils (%) (Auto) 0.3 % Basophils (%) (Auto) 0.4 % Neutrophils # (Auto) 9.7 TH/MM3 Lymphocytes # (Auto) 2.2 TH/MM3 Monocytes # (Auto) 0.8 TH/MM3 Eosinophils # (Auto) 0.0 TH/MM3 Basophils # (Auto) 0.1 TH/MM3 CBC Comment DIFF FINAL Differential Comment Prothrombin Time 10.6 SEC Prothromb Time International Ratio 1.0 RATIO Activated Partial Thromboplast Time 21.1 SEC Blood Urea Nitrogen 13 MG/DL Creatinine 1.18 MG/DL Random Glucose 97 MG/DL Total Protein 8.2 GM/DL Albumin 4.6 GM/DL Calcium Level 9.5 MG/DL Alkaline Phosphatase 65 U/L Aspartate Amino Transf (AST/SGOT) 36 U/L Alanine Aminotransferase (ALT/SGPT) 27 U/L Total Bilirubin 0.8 MG/DL Sodium Level 139 MEQ/L Potassium Level 4.0 MEQ/L Chloride Level 106 MEQ/L Carbon Dioxide Level 23.4 MEQ/L Anion Gap 10 MEQ/L Estimat Glomerular Filtration Rate 72 ML/MIN Total Creatine Kinase 291 U/L Troponin I LESS THAN 0.02 NG/ML Thyroid Stimulating Hormone 3rd Gen 0.900 uIU/ML Ethyl Alcohol Level LESS THAN 3 MG/DL Lactic Acid Level 1.5 mmol/L Ammonia 32 MCMOL/L Urine Color YELLOW Urine Turbidity CLEAR Urine pH 6.5 Urine Specific [place] 1.028 Urine Protein TRACE mg/dL Urine Glucose (UA) NEG mg/dL Urine Ketones 10 mg/dL Urine Occult Blood TRACE Urine Nitrite NEG Urine Bilirubin NEG Urine Urobilinogen 2.0 MG/DL Urine Leukocyte Esterase NEG Urine RBC 2 /hpf Urine WBC 1 /hpf Urine Bacteria RARE /hpf Urine Mucus FEW /lpf Microscopic Urinalysis Comment CATH-CULTURE IND MDM Medical Decision Making Medical Screen Exam Complete: Yes Emergency Medical Condition: Yes Medical Record Reviewed: Yes (past history confirm) Interpretation(s) CBC & BMP Diagram 03/28/17 15:25 Total Protein 8.2, Albumin 4.6, Calcium Level 9.5, Alkaline Phosphatase 65, Aspartate Amino Transf (AST/SGOT) 36, Alanine Aminotransferase (ALT/SGPT) 27, Total Bilirubin 0.8 Last [address] 03/28/17 1513 Signed Impressions: Service Date/Time: Tuesday, March 28, 2017 16:11 - CONCLUSION: Normal examination. Andrés Morris MD Chest X-Ray 03/28/173 Signed Impressions: Service Date/Time: Tuesday, March 28, 2017 15:28 - CONCLUSION: No acute disease. Harmeet Linares Jr., MD Differential Diagnosis Hypoglycemia, hyponatremia, intercranial, intoxication, bleed Narrative Course Will check labs, imaging and monitor. Narcan given without change patient without emergent findings, will place in observation Diagnosis Primary Impression: Altered mental status Qualified Codes: R41.82 - Altered mental status, unspecified Admitting Information Admitting Physician Requests: Observation Scripts No Active Prescriptions or Reported Meds Holli Hernandez MD Mar 28, 2017 16:20
[2017-03-28 16:28] LABS: ALKALINE PHOSPHATASE 65 U/L (45-117); ALT (GPT) 27 U/L (12-78); ANION GAP 10 MEQ/L (5-15); AST (GOT) 36 U/L (15-37); BICARBONATE 23.4 MEQ/L (21.0-32.0); BLOOD UREA NITROGEN 13 MG/DL (7-18); CHLORIDE 106 MEQ/L (98-107); CREATINE KINASE 291 U/L (39-308); GLOMERULAR FILTRATION RATE 72 ML/MIN (>89); SODIUM (NA) 139 MEQ/L (136-145); TOTAL BILIRUBIN ADULT 0.8 MG/DL (0.2-1.0)
[2017-03-28 16:35] LABS: ALCOHOL LESS THAN 3 MG/DL (0-5)
--- NOTE | 2017-03-28 16:43 | RADRPT ---
EXAM DATE/TIME: 03/28/2017 16:11 [facility] COMPARISON: No previous studies available for comparison. INDICATIONS : Altered mental status with confusion. RADIATION DOSE: 43.94 CTDIvol (mGy) MEDICAL HISTORY : Seizures. Cardiovascular disease PE SURGICAL HISTORY : None. ENCOUNTER: Initial ACUITY: 1 day PAIN SCALE: 2/10 LOCATION: Bilateral cranial TECHNIQUE: Multiple contiguous axial images were obtained of the head. Using automated exposure control and adj ustment of the mA and/or kV according to patient size, radiation dose was kept as low as reasonably a chievable to obtain optimal diagnostic quality images. DICOM format image data is available electro nically for review and comparison. FINDINGS: CEREBRUM: The ventricles are normal for age. No evidence of midline shift, mass lesion, hemorrhage or acute in farction. No extra-axial fluid collections are seen. POSTERIOR FOSSA: The cerebellum and brainstem are intact. The 4th ventricle is midline. The cerebellopontine angle i s unremarkable. EXTRACRANIAL: The visualized portion of the orbits is intact. SKULL: The calvaria is intact. No evidence of skull fracture. CONCLUSION: Normal examination. Andrés Morris MD on March 28, 2017 at 16:41 Board Certified Radiologist. This report was verified electronically.
[2017-03-28 16:55] VITALS: BP 144/88; PULSE 61; RESP 16; O2SAT 99
--- NOTE | 2017-03-28 17:24 | HHI.HP ---
[facility]ician Unknown Admission Diagnosis altered mental status Diagnoses: (1) Heat stroke (2) Toxic encephalopathy (3) Altered mental status Chief Complaint: Alter mental status change Travel History International Travel<30 Days: No Contact w/Intl Traveler <30 Da: No Traveled to Known Affected Are: No History of Present Illness This is a 32 year-old male apparently was dropped off to the triage area for evaluation of altered mental status change. Initially when patient was brought to the ED, he was nonverbal and could not give any history. Apparently from the friends would drop him off he said patient was having heat exhaustion. During my exam, although patient was unable to speak clearly and audibly, he was following command and oriented. Patient was able to use sign language to communicate. 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 Patient is having difficulty moving all 4 extremities however he is able to point out to his chest has the one area that hurts the most. Head CT as well as chest x-ray were all unremarkable. Patient had normal CPK Review of Systems ROS Limitations: Altered Mental Status Past Family Social History Past Medical History Unable to obtain Past Surgical History By records Other Surgery: Yes Allergies: Coded Allergies: asparagus (Unverified Allergy, Severe, HIVES, 04/17/17) carbamazepine (Unverified Allergy, Severe, 04/17/17) coconut (Unverified Allergy, Severe, HIVES, 04/17/17) divalproex sodium (Unverified Allergy, Severe, SWELLING, 04/17/17) melon (Unverified Allergy, Severe, HIVES, 04/17/17) phenytoin (Unverified Allergy, Severe, Rash/SWELLING, 04/17/17) ziprasidone (Unverified Allergy, Severe, 04/17/17) phenobarbital (Unverified Allergy, Unknown, 04/17/17) Uncoded Allergies: OKRA (Allergy, Severe, HIVES, 12/16/09) Family History Unable to obtain Social History by records Alcohol Use: No Tobacco Use: Yes (1PPD) Substance Use: Yes (MARIJUANA DAILY) Physical Exam Vital Signs Vital Signs Date Time Temp Pulse Resp B/P (MAP) Pulse Ox O2 Delivery O2 Flow Rate FiO2 03/28/17 16:55 61 16 144/88 (106) 99 Room Air 03/28/17 15:17 100 Room Air 03/28/17 15:12 Room Air 03/28/17 15:09 99.1 81 17 164/95 (118) 99 Physical Exam GENERAL: This is a well-nourished, well-developed patient who appears to be in some distress however unable to communicate ordered and using minimal sign language SKIN: No rashes, ecchymoses or lesions. Cool and dry. HEAD: Atraumatic. Normocephalic. No temporal or scalp tenderness. EYES: Pupils equal round and reactive. Extraocular motions intact. No scleral icterus. No injection or drainage. ENT: Nose without bleeding, purulent drainage or septal hematoma. Throat without erythema, tonsillar hypertrophy or exudate. Uvula midline. Airway patent. NECK: Trachea midline. No JVD or lymphadenopathy. Supple, nontender, no meningeal signs. CARDIOVASCULAR: Regular rate and rhythm without murmurs, gallops, or rubs. RESPIRATORY: Clear to auscultation. Breath sounds equal bilaterally. No wheezes , rales, or rhonchi. GASTROINTESTINAL: Abdomen soft, non-tender, nondistended. No hepato-splenomegaly , or palpable masses. No guarding. MUSCULOSKELETAL: Extremities without clubbing, cyanosis, or edema. No joint tenderness, effusion, or edema noted. Limited range of motion of all muscles NEUROLOGICAL: Awake and alert. Cranial nerves II through XII intact. Very limited neuro exam Laboratory Laboratory Tests Test 03/28/17 15:25 03/28/17 15:30 03/28/17 15:35 White Blood Count 12.9 Red Blood Count 4.86 Hemoglobin 15.1 Hematocrit 45.2 Mean Corpuscular Volume 93.0 Mean Corpuscular Hemoglobin 31.1 Mean Corpuscular Hemoglobin Concent 33.4 Red Cell Distribution Width 13.6 Platelet Count 252 Mean Platelet Volume 8.4 Neutrophils (%) (Auto) 75.6 Lymphocytes (%) (Auto) 17.3 Monocytes (%) (Auto) 6.4 Eosinophils (%) (Auto) 0.3 Basophils (%) (Auto) 0.4 Neutrophils # (Auto) 9.7 Lymphocytes # (Auto) 2.2 Monocytes # (Auto) 0.8 Eosinophils # (Auto) 0.0 Basophils # (Auto) 0.1 CBC Comment DIFF FINAL Differential Comment Prothrombin Time 10.6 Prothromb Time International Ratio 1.0 Activated Partial Thromboplast Time 21.1 Blood Urea Nitrogen 13 Creatinine 1.18 Random Glucose 97 Total Protein 8.2 Albumin 4.6 Calcium Level 9.5 Alkaline Phosphatase 65 Aspartate Amino Transf (AST/SGOT) 36 Alanine Aminotransferase (ALT/SGPT) 27 Total Bilirubin 0.8 Sodium Level 139 Potassium Level 4.0 Chloride Level 106 Carbon Dioxide Level 23.4 Anion Gap 10 Estimat Glomerular Filtration Rate 72 Total Creatine Kinase 291 Troponin I LESS THAN 0.02 Thyroid Stimulating Hormone 3rd Gen 0.900 Ethyl Alcohol Level LESS THAN 3 Lactic Acid Level 1.5 Ammonia 32 Urine Color YELLOW Urine Turbidity CLEAR Urine pH 6.5 Urine Specific Grants 1.028 Urine Protein TRACE Urine Glucose (UA) NEG Urine Ketones 10 Urine Occult Blood TRACE Urine Nitrite NEG Urine Bilirubin NEG Urine Urobilinogen 2.0 Urine Leukocyte Esterase NEG Urine RBC 2 Urine WBC 1 Urine Bacteria RARE Urine Mucus FEW Microscopic Urinalysis Comment CATH-CULTURE IND Date/Time Source Procedure Growth Status 03/28/17 15:30 Blood Peripheral Aerobic Blood Culture Pending Received 03/28/17 15:30 Blood Peripheral Anaerobic Blood Culture Pending Received 03/28/17 15:35 Urine Clean Catch Urine Culture Pending Received Result Diagram: 03/28/17 1525 03/28/17 1525 Imaging Last Impressions Head CT 03/28/17 1513 Signed Impressions: Service Date/Time: Tuesday, March 28, 2017 16:11 - CONCLUSION: Normal examination. Andrés Morris MD Chest X-Ray 03/28/17 1513 Signed Impressions: Service Date/Time: Tuesday, March 28, 2017 15:28 - CONCLUSION: No acute disease. MD Quinn Broussard Jr.i VTE Risk Assessment Caprini VTE Risk Assessment: No/Low Risk (score <= 1) Caprini Risk Assessment Model Point Value = 1 Point Value = 2 Point Value = 3 Point Value = 5 Age 41-60 Minor surgery BMI > 25 kg/m2 Swollen legs Varicose veins or History of unexplained or recurrent spontaneous Oral contraceptives or hormone replacement Sepsis (< 1 month) Serious lung disease, including pneumonia (< 1 month) Abnormal pulmonary function Acute myocardial infarction Congestive heart failure (< 1 month) History of inflammatory bowel disease Medical patient at bed rest Age 61-74 Arthroscopic surgery Major open surgery (> 45 min) Laparoscopic surgery (> 45 min) Malignancy Confined to bed (> 72 hours) Immobilizing plaster cast Central venous access Age >= 75 History of VTE Family history of VTE Factor V Leiden Prothrombin [id number] Lupus anticoagulant Anticardiolipin antibodies Elevated serum homocysteine Heparin-induced thrombocytopenia Other congenital or acquired thrombophilia Stroke (< 1 month) Elective arthroplasty Hip, pelvis, or leg fracture Acute spinal cord injury (< 1 month) Prophylaxis Regimen Total Risk Factor Score Risk Level Prophylaxis Regimen 0-1 Low Early ambulation 2 Moderate Order ONE of the following: *Sequential Compression Device (SCD) *Heparin 5000 units SQ BID 3-4 Higher Order ONE of the following medications: *Heparin 5000 units SQ TID *Enoxaparin/Lovenox 40 mg SQ daily (WT < 150 kg, CrCl > 30 mL/min) *Enoxaparin/Lovenox 30 mg SQ daily (WT < 150 kg, CrCl > 10-29 mL/min) *Enoxaparin/Lovenox 30 mg SQ BID (WT < 150 kg, CrCl > 30 mL/min) AND/OR *Sequential Compression Device (SCD) 5 or more Highest Order ONE of the following medications: *Heparin 5000 units SQ TID (Preferred with Epidurals) *Enoxaparin/Lovenox 40 mg SQ daily (WT < 150 kg, CrCl > 30 mL/min) *Enoxaparin/Lovenox 30 mg SQ daily (WT < 150 kg, CrCl > 10-29 mL/min) *Enoxaparin/Lovenox 30 mg SQ BID (WT < 150 kg, CrCl > 30 mL/min) AND *Sequential Compression Device (SCD) Assessment and Plan Problem List: (1) Toxic encephalopathy ICD Code: G92 - Toxic encephalopathy (2) Heat stroke ICD Code: T67.0XXA - Heatstroke and sunstroke, initial encounter (3) Altered mental status ICD Code: R41.82 - Altered mental status, unspecified Status: Acute Assessment and Plan 32-year-old man with Toxic encephalopathy Head CT noted and review by me without any finding Mentation improved however patient is still unable to communicate Check UDS Normal alcohol level Questionable heatstroke Although CK unremarkable, will start aggressive IV fluid hydration Neuro check Leukocytosis Stress reactive DVT prophylaxis: SCDs Code Status Full code Problem Qualifiers (1) Altered mental status: Qualified Codes: R41.82 - Altered mental status, unspecified Chad Andres MD Mar 28, 2017 17:24
[2017-03-28] MEDS ORDERED: SODIUM CHLORIDE 0.9% FLUSH 10 ML FLUSH IV FLUSH PRN (17:30)
[2017-03-28] MEDS ORDERED: ACETAMINOPHEN 325 MG TAB PO PRN (17:30)
[2017-03-28] MEDS ORDERED: NALOXONE HCL 0.4 MG/ML AMP IV PRN (17:30)
[2017-03-28] MEDS ORDERED: ENALAPRILAT 1.25 MG/ML VIAL IV PUSH PRN (17:30)
[2017-03-28] MEDS ORDERED: RESP: ALBUTEROL 2.5 MG/IPRATROPIUM 0.5 MG NEB (PRN) NEB (17:30)
[2017-03-28 18:07] VITALS: BP 102/57; PULSE 68; RESP 15; O2SAT 98
[2017-03-28 18:42] VITALS: BP 130/71; PULSE 82; RESP 16; TEMP 98.9; O2SAT 99
[2017-03-28 19:50] VITALS: BP 112/53; PULSE 70; RESP 20; TEMP 99; O2SAT 100
[2017-03-28] MEDS ORDERED: LORazepam 2 MG/ML VIAL IV PUSH PRN (20:00)
[2017-03-28] MEDS ORDERED: HALOPERIDOL LACTATE 5 MG/ML AMP IV PUSH ONE (20:00)
[2017-03-28] MEDS ORDERED: SODIUM CHLORIDE 0.9% FLUSH 10 ML FLUSH IV FLUSH SCH (21:00)
--- NOTE | 2017-03-28 21:02 | HHI.PR ---
Subjective Remarks I was called by patient's nurse at around 7:10p.m. initially that pt wanted to sign out ama but that he is not steady on his feet and that pt is not able to talk. It was noted that per chart and report, pt being not able to talk is acute. pt was brought in by his friend stating he has heat stroke per er report thus advise nurse to keep pt in hospital, call security and if needed, I will come see and wenceslao act him in order to make sure he is safe,awake, alert to leave hospital. I then came to see patient at the bedside at around 7:50 PM. Patient was quite angry, aggressive, though not able to talk. He has been communicating with the nurses by writing everything down. ice guard inspector was at the bedside. Patient demanded that he wanted to leave AMA. However as he was trying to talk, he was not able to standup properly and almost falling down. I have therefore told patient that I would need to be Sofia acted him and review his case prior to making a decision because he really did not seem to be making an informed decision. He is however awake and alert. I then reviewed the case. Patient has limited history since he was not able to talk and was not giving history. His friend brought him to the hospital because he thought that patient was having a heat stroke. Patient was quite altered in emergency room. However by the time of the admitting physician arrival, patient was awake and alert and was communicating with him by writing. His CPK was normal. I was then called in by patient again to talk to him. I came to see him at around 8:40p.m. At this point, patient is much more cooperated corporative and given history. He stated that he is not able to talk because he fell down and fell down against a tree and landed on his neck. Since then he was not able to talk and that this happened sometime between 12 noon and 2 PM today. He states that this happened at work and his boss was the one who found him on the ground and therefore carried him onto his truck and drove him to the hospital. He has however started making some phonics as I was talking to him as compared to my examination around 7:50 PM. His gait is much more stable and have been ambulating from his room to nursing station. He reports that he really wanted to go home because he has kids at home. He states he lives with his stepbrother, and his kids as well. He really does not want to be under Sofia act. He much rather goes home and also would really want to have a cigarette. He then gave me the telephone number of his grandmother who lives nearby. I have spoken to his grandmother Mrs. Chow on the phone at [phone]. I have explained to her that patient would really like to go home. I have told her that his condition has improved although he is not able to talk and his gait is somewhat still unsteady. He would really need to hydrate himself. If he is to leave AGAINST MEDICAL ADVICE, I would rather family members come and pick him up. The grandmother told that she is going to call her nephew/patient's stepbrother to see who can come pick him up at the hospital. She stated that he has had previous admissions where he signed out AMA and he really hates being in the hospital. On review of medical records, and also per grandmother's report, patient does have history of seizures. He is somewhat noncompliant with his seizure medications as well. Patient agrees to stay in the hospital until his family members, and take him home. He will sign out AMA once they arrive. I was and later informed by nursing staff that patient did sign out AMA. Objective Vital Signs Date Time Temp Pulse Resp B/P (MAP) Pulse Ox O2 Delivery O2 Flow Rate FiO2 03/28/17 19:50 99.0 70 20 112/53 (72) 100 03/28/17 18:42 Room Air 03/28/17 18:42 98.9 82 16 130/71 (90) 99 03/28/17 18:30 03/28/17 18:07 68 15 102/57 (72) 98 Room Air 03/28/17 16:55 61 16 144/88 (106) 99 Room Air 03/28/17 15:17 100 Room Air 03/28/17 15:12 Room Air 03/28/17 15:09 99.1 81 17 164/95 (118) 99 I/O 03/27/17 03/27/17 03/27/17 03/28/17 03/28/17 03/28/17 07:00 15:00 23:00 07:00 15:00 23:00 Intake Total 1000 ml Balance 1000 ml Intake IV Total 1000 ml Result Diagram: 03/28/17 1525 03/28/17 1525 Anatoliy Velazquez MD Mar 28, 2017 21:02
--- NOTE | 2017-03-29 08:33 | EKG ---
Date Performed: 03/28/2017 Time Performed: 15:12:26 PTAGE: 32 years EKG: Sinus rhythm MINIMAL VOLTAGE CRITERIA FOR LVH, CONSIDER NORMAL VARIANT BORDERLINE ECG PREVIOUS TRACING : 02/14/2017 07.53 No significant change from previous tracing noted. DOCTOR: Marciano Caba Interpretating Date/Time 03/29/2017 08:31:27
== END 2017-03-28 21:10 | disposition left against medical advice (07) ==
LOC: NEPE 15:05 → NEDA 17:17 → NEPHCDU 18:28
PROVIDERS: ADMIT Family Medicine; ATTEND Family Medicine
DX: R41.82 Altered mental status, unspecified (principal); T67.0XXA Heatstroke and sunstroke, initial encounter; G92 Toxic encephalopathy; R94.31 Abnormal electrocardiogram [ECG] [EKG]; D72.829 Elevated white blood cell count, unspecified; F12.90 Cannabis use, unspecified, uncomplicated
CPT/HCPCS: 70450; 71010; 80053; 80307; 81001; 82140; 82550; 83605; 84443; 84484; 85025; 85610; 85730; 87040; 87086; 93005; 96361; 96374; 99285; G0378; J2310; J7030

== ENCOUNTER 2017-04-17 11:40 | Emergency (ER) | payer SELFPAY ==
[~2017-04-17] VITALS: Ht 172.7 cm; Wt 75.0 kg
[2017-04-17 11:42] VITALS: BP 139/92; PULSE 89; RESP 16; TEMP 98.4; O2SAT 99
[2017-04-17] MEDS ORDERED: IBUPROFEN 800 MG TAB PO ONE (12:45)
--- NOTE | 2017-04-17 13:19 | PD ---
HPI Chief Complaint: Musculoskeletal Complaint Time Seen by Provider: 12:36 Travel History International Travel<30 days: No Contact w/Intl Traveler<30days: No Traveled to known affect area: No History of Present Illness HPI 32-year-old male presents emergency Department with complaint of left index finger pain after injuring it at work on some type of machinery. Reports swelling, pain, decreased range of motion. Denies loss of sensation or paresthesias to the finger. Pain extends to the metacarpal region. Has not taken any medications or tried any treatments to alleviate his symptoms. Multiple allergies as listed on chart. Has no medical complaints. Symptoms are mild in severity. No other modifying factors or associated signs and symptoms. PFSH Past Medical History Autoimmune Disease: No Blood Disorders: No Anxiety: Yes Depression: Yes Cancer: No Cardiovascular Problems: Yes Chest Pain: Yes Diabetes: No Diminished Hearing: No Deep Vein Thrombosis: Yes Endocrine: No Gastrointestinal Disorders: No Genitourinary: No Immune Disorder: No Implanted Vascular Access Dvce: No Musculoskeletal: No Neurologic: Yes (HX seizures, states cleared by neuro) Psychiatric: Yes Reproductive: No Immunizations Current: Yes Myocardial Infarction: Yes Seizures: Yes Thyroid Disease: No PNEUMOCCOCAL Vaccine (Year): 2 Past Surgical History Other Surgery: Yes Social History Alcohol Use: No Tobacco Use: Yes (1PPD) Substance Use: Yes (MARIJUANA DAILY) Allergies-Medications (Allergen,Severity, Reaction): Coded Allergies: asparagus (Unverified Allergy, Severe, HIVES, 04/17/17) carbamazepine (Unverified Allergy, Severe, 04/17/17) coconut (Unverified Allergy, Severe, HIVES, 04/17/17) divalproex sodium (Unverified Allergy, Severe, SWELLING, 04/17/17) melon (Unverified Allergy, Severe, HIVES, 04/17/17) phenytoin (Unverified Allergy, Severe, Rash/SWELLING, 04/17/17) ziprasidone (Unverified Allergy, Severe, 04/17/17) phenobarbital (Unverified Allergy, Unknown, 04/17/17) Uncoded Allergies: OKRA (Allergy, Severe, HIVES, 12/16/09) Reported Meds & Prescriptions Reported Meds & Active Scripts Active Ibuprofen 800 Mg Tab 800 Mg PO Q6HR PRN Review of Systems Except as stated in HPI: all other systems reviewed are Neg Physical Exam Narrative GENERAL: Well-nourished, well-developed male patient, in no acute distress SKIN: Warm and dry. HEAD: Atraumatic. Normocephalic. EYES: Pupils equal and round. No scleral icterus. No injection or drainage. ENT: Mucosa pink and moist. Airway patent. NECK: Trachea midline. CARDIOVASCULAR: Regular rate. RESPIRATORY: No accessory muscle use. GASTROINTESTINAL: Flat. MUSCULOSKELETAL: Left index finger with minimal edema and without erythema or ecchymosis; no obvious deformity; minimal range of motion but patient is able to bend at each finger joint; sensory intact; fingers pink and warm; less than 3 second cap refill; tenderness on palpation to the first metacarpal regions. Left hand is without erythema, edema, ecchymosis. No obvious deformities. No clubbing. No cyanosis. NEUROLOGICAL: Awake and alert. Oriented 3. No obvious cranial nerve deficits. Motor grossly within normal limits. Normal speech. PSYCHIATRIC: Appropriate mood and affect; insight and judgment normal. Data Data Last Documented VS Vital Signs Date Time Temp Pulse Resp B/P (MAP) Pulse Ox O2 Delivery O2 Flow Rate FiO2 04/17/17 12:34 16 04/17/17 11:42 98.4 89 139/92 (108) 99 Orders Orders Hand, Complete ([id number]) (04/17/17 12:35) Ibuprofen (Motrin) (04/17/17 12:45) Splint Or Brace Apply/Monitor (04/17/17 13:56) MDM Medical Decision Making Medical Screen Exam Complete: Yes Emergency Medical Condition: Yes Medical Record Reviewed: Yes Differential Diagnosis Finger fracture, finger sprain, finger injury Narrative Course 32-year-old male with left index finger injury. Ibuprofen administered in the ER. Left hand x-ray ordered. 1354: Left hand x-ray concludes: No acute fracture or dislocation; Mild soft tissue swelling. Finger splint provider for support. Ibuprofen prescribed for home. Instructed patient to follow up with primary care provider. Patient verbalizes understanding and agreement with treatment plan. Patient is medically cleared and stable for discharge. Discussed reasons to return to the emergency department. Patient agrees with treatment plan. The patients vital signs are stable and the patient is stable for outpatient follow-up and treatment. Patient discharged home, stable and in no acute distress. Diagnosis Primary Impression: Injury of left index finger Qualified Codes: S69.92XA - Unspecified injury of left wrist, hand and finger( s), initial encounter Referrals: Primary Care Physician Med/Other Pt SpecificInfo: Prescription(s) given Scripts Ibuprofen (Ibuprofen) 800 Mg Tab 800 MG PO Q6HR Y for PAIN, #30 TAB 0 Refills Prov: Nicoel Ashby 04/17/17 Disposition: 01 DISCHARGE HOME Condition: Stable Nicole Ashby Apr 17, 2017 13:19
--- NOTE | 2017-04-17 13:52 | RADRPT ---
EXAM DATE/TIME: 04/17/2017 13:24 [facility] COMPARISON: No previous studies available for comparison. INDICATIONS : Hand caught in chain/gear, pain entire hand and fingers, swelling over 3rd metacarpal. MEDICAL HISTORY : None. SURGICAL HISTORY : None. ENCOUNTER: Initial ACUITY: 1 day PAIN SCORE: 10/10 LOCATION: Left hand. FINDINGS: No acute fracture or dislocation is noted. Mild soft tissue swelling is noted. No radiopaque foreign body is noted. CONCLUSION: 1. No acute fracture or dislocation. 2. Mild soft tissue swelling. Zachary Chappell MD on April 17, 2017 at 13:48 Board Certified Radiologist. This report was verified electronically.
[2017-04-17] MEDS ORDERED: IBUP800T23 PO (13:55)
== END 2017-04-17 13:56 | disposition home or self-care (01) ==
LOC: NETRI 11:40 → EDTENT 13:56
DX: S69.92XA Unspecified injury of left wrist, hand and finger(s), initial encounter (principal); F41.9 Anxiety disorder, unspecified; F32.9 Major depressive disorder, single episode, unspecified; R56.9 Unspecified convulsions; I25.2 Old myocardial infarction; F17.200 Nicotine dependence, unspecified, uncomplicated; X58.XXXA Exposure to other specified factors, initial encounter; Z86.718 Personal history of other venous thrombosis and embolism
CPT/HCPCS: 29130; 73130

== ENCOUNTER 2017-09-12 10:30 | Emergency (ER) | payer SELFPAY ==
[~2017-09-12] VITALS: Ht 172.7 cm; Wt 79.5 kg
[~2017-09-12 10:30] MED LIST changes: -AMOX500T PO; -CIPR-9 PO; -CIPRHC10A LEFT EAR; +IBUP1TAB7 PO; -METR-1 PO; -TYLETAB34 PO; -ZOFR4TAB PO
[2017-09-12 10:31] VITALS: BP 155/87; PULSE 106; RESP 20; TEMP 98.5; O2SAT 100
[2017-09-12 10:50] VITALS: BP 123/81; PULSE 88; RESP 19; TEMP 98.9; O2SAT 100
[2017-09-12] MEDS ORDERED: SODIUM CHLOR 0.9% 1000 ML INJ 1,000 ML IV SCH (11:09)
[2017-09-12] MEDS ORDERED: FAMOTIDINE 20 MG/2 ML VIAL IV PUSH ONE (11:15)
[2017-09-12] MEDS ORDERED: MORPHINE SULFATE 2 MG/ML INJ IV PUSH ONE ×3 (11:15→12:45)
[2017-09-12] MEDS ORDERED: ONDANSETRON HCL 4 MG/2 ML VIAL IVP ONE (11:15)
[2017-09-12 11:33] LABS: AUTOMATED NEUTROPHIL # 5.4 TH/MM3 (1.8-7.7); BASOPHIL # 0.1 TH/MM3 (0-0.2); EOSINOPHIL % 0.2 % (0.0-4.0); HEMATOCRIT 45.8 % (39.0-51.0); HEMOGLOBIN 15.9 GM/DL (13.0-17.0); LYMPH % 22.5 % (9.0-44.0); LYMPHOCYTE # 1.7 TH/MM3 (1.0-4.8); MEAN CELL VOLUME 91.8 FL (80.0-100.0); MEAN CORPUSCULAR HEMOGLOBIN 31.8 PG (27.0-34.0); MEAN CORPUSCULAR HGB CONC 34.7 % (32.0-36.0); MEAN PLATELET VOLUME 8.5 FL (7.0-11.0); MONO % 5.1 % (0.0-8.0); MONOCYTE # 0.4 TH/MM3 (0-0.9); NEUT % 71.2 % (16.0-70.0); PLATELET COUNT 261 TH/MM3 (150-450); RED BLOOD COUNT 4.99 MIL/MM3 (4.50-5.90); RED CELL DISTRIBUTION WIDTH 13.6 % (11.6-17.2); WHITE BLOOD COUNT 7.6 TH/MM3 (4.0-11.0)
[2017-09-12 11:42] LABS: INTERNATIONAL NORMALIZED RATIO 1.1 RATIO; PROTHROMBIN TIME - PATIENT 11.4 SEC (9.8-11.6)
[2017-09-12 11:43] LABS: D-DIMER 0.61 MG/L FEU (0.00-0.50)
[2017-09-12 11:49] LABS: ALBUMIN 4.6 GM/DL (3.4-5.0); AST (GOT) 16 U/L (15-37); BICARBONATE 17.5 MEQ/L (21.0-32.0); BLOOD UREA NITROGEN 14 MG/DL (7-18); CALCIUM 9.5 MG/DL (8.5-10.1); CHLORIDE 102 MEQ/L (98-107); CREATININE 1.19 MG/DL (0.60-1.30); GLOMERULAR FILTRATION RATE 71 ML/MIN (>89); GLUCOSE,RANDOM 182 MG/DL (74-106); SODIUM (NA) 135 MEQ/L (136-145)
[2017-09-12 11:53] LABS: ALKALINE PHOSPHATASE 77 U/L (45-117); ALT (GPT) 18 U/L (12-78); TOTAL PROTEIN 8.2 GM/DL (6.4-8.2)
--- NOTE | 2017-09-12 11:53 | PD ---
HPI Chief Complaint: GI Complaint Time Seen by Provider: 10:57 Travel History International Travel<30 days: No Contact w/Intl Traveler<30days: No Traveled to known affect area: No History of Present Illness HPI 32y male with a history of DVT presents to the ED c/o hematemesis, hemoptysis, and abdominal pain since this morning. Says the he starting having "stomach twisting" last night that started in his mid epigastric region that has radiated to the left flank and up his left back. States he also has shortness of breath, scant hemoptysis with left-sided chest pain with inspiration. Patient states he feels like his "lungs are sticking together". States he had one episode of nonbloody, watery light brown diarrhea last night. Says he has chills. Denies alcohol use (x9 years), smoke 1/2PPD cigarettes, and has a remote history of seizure disorder. He does not currently take medications. Patient does not have a primary care physician. PFSH Past Medical History Autoimmune Disease: No Blood Disorders: No Anxiety: Yes Depression: Yes Cancer: No Cardiovascular Problems: Yes Chest Pain: Yes Diabetes: No Diminished Hearing: No Deep Vein Thrombosis: Yes Endocrine: No Gastrointestinal Disorders: No Genitourinary: No Immune Disorder: No Implanted Vascular Access Dvce: No Musculoskeletal: No Neurologic: Yes (HX seizures, states cleared by neuro) Psychiatric: Yes Reproductive: No Respiratory: Yes (hx PE) Immunizations Current: Yes Myocardial Infarction: Yes Seizures: Yes Thyroid Disease: No Tetanus Vaccination: > 5 Years Influenza Vaccination: No PNEUMOCCOCAL Vaccine (Year): 2 Past Surgical History Other Surgery: Yes Social History Alcohol Use: No Tobacco Use: Yes (1PPD) Substance Use: Yes (MARIJUANA DAILY) Allergies-Medications (Allergen,Severity, Reaction): Coded Allergies: asparagus (Unverified Allergy, Severe, HIVES, 09/12/17) carbamazepine (Unverified Allergy, Severe, 09/12/17) coconut (Unverified Allergy, Severe, HIVES, 09/12/17) divalproex sodium (Unverified Allergy, Severe, SWELLING, 09/12/17) melon (Unverified Allergy, Severe, HIVES, 09/12/17) phenytoin (Unverified Allergy, Severe, Rash/SWELLING, 09/12/17) ziprasidone (Unverified Allergy, Severe, 09/12/17) phenobarbital (Unverified Allergy, Unknown, 09/12/17) Uncoded Allergies: OKRA (Allergy, Severe, HIVES, 12/16/09) Reported Meds & Prescriptions Reported Meds & Active Scripts Active No Active Prescriptions or Reported Medications Review of Systems Except as stated in HPI: all other systems reviewed are Neg Physical Exam Narrative GENERAL: Well-developed well-nourished, in mild distress SKIN: Focused skin assessment warm/dry. HEAD: Atraumatic. Normocephalic. EYES: Pupils equal and round. No scleral icterus. No injection or drainage. ENT: No nasal bleeding or discharge. Mucous membranes pink and moist. NECK: Trachea midline. No JVD. No lymphadenopathy CARDIOVASCULAR: Regular rate and rhythm. No murmur appreciated. RESPIRATORY: No accessory muscle use. Clear to auscultation. Breath sounds equal bilaterally. GASTROINTESTINAL: Abdomen soft, voluntary guarding, tender midepigastric region to left abdominal region. Positive left-sided CVA tenderness MUSCULOSKELETAL: No obvious deformities. No clubbing. No cyanosis. No pedal edema NEUROLOGICAL: Awake and alert. No obvious cranial nerve deficits. Motor grossly within normal limits. Normal speech. PSYCHIATRIC: Appropriate mood and affect; insight and judgment normal. Data Data Last Documented VS Vital Signs Date Time Temp Pulse Resp B/P (MAP) Pulse Ox O2 Delivery O2 Flow Rate FiO2 09/12/17 14:40 09/12/17 12:47 71 19 99 Room Air 09/12/17 10:50 98.9 Orders Orders Complete Blood Count With Diff (09/12/17 11:09) Comprehensive Metabolic Panel (09/12/17 11:09) Lipase (09/12/17 11:09) Prothrombin Time / Inr (Pt) (09/12/17 11:09) Act Partial Throm Time (Ptt) (09/12/17 11:09) Urinalysis - C+S If Indicated (09/12/17 11:09) NPO (09/12/17 11:09) Ondansetron Inj (Zofran Inj) (09/12/17 11:15) Sodium Chlor 0.9% 1000 Ml Inj (Ns 1000 M (09/12/17 11:09) Electrocardiogram (09/12/17 11:09) Famotidine Inj (Pepcid Inj) (09/12/17 11:15) D-Dimer (09/12/17 11:09) Morphine Inj (Morphine Inj) (09/12/17 11:15) Ct Pulmonary Angiogram (09/12/17 ) Ct Abd/Pel W Iv Contrast(Rout) (09/12/17 ) Morphine Inj (Morphine Inj) (09/12/17 12:45) Morphine Inj (Morphine Inj) (09/12/17 12:45) Labs Laboratory Tests Test 09/12/17 11:20 09/12/17 12:40 White Blood Count 7.6 TH/MM3 Red Blood Count 4.99 MIL/MM3 Hemoglobin 15.9 GM/DL Hematocrit 45.8 % Mean Corpuscular Volume 91.8 FL Mean Corpuscular Hemoglobin 31.8 PG Mean Corpuscular Hemoglobin Concent 34.7 % Red Cell Distribution Width 13.6 % Platelet Count 261 TH/MM3 Mean Platelet Volume 8.5 FL Neutrophils (%) (Auto) 71.2 % Lymphocytes (%) (Auto) 22.5 % Monocytes (%) (Auto) 5.1 % Eosinophils (%) (Auto) 0.2 % Basophils (%) (Auto) 1.0 % Neutrophils # (Auto) 5.4 TH/MM3 Lymphocytes # (Auto) 1.7 TH/MM3 Monocytes # (Auto) 0.4 TH/MM3 Eosinophils # (Auto) 0.0 TH/MM3 Basophils # (Auto) 0.1 TH/MM3 CBC Comment DIFF FINAL Differential Comment Prothrombin Time 11.4 SEC Prothromb Time International Ratio 1.1 RATIO Activated Partial Thromboplast Time 26.2 SEC D-Dimer Quantitative (PE/DVT) 0.61 MG/L FEU Blood Urea Nitrogen 14 MG/DL Creatinine 1.19 MG/DL Random Glucose 182 MG/DL Total Protein 8.2 GM/DL Albumin 4.6 GM/DL Calcium Level 9.5 MG/DL Alkaline Phosphatase 77 U/L Aspartate Amino Transf (AST/SGOT) 16 U/L Alanine Aminotransferase (ALT/SGPT) 18 U/L Total Bilirubin 1.0 MG/DL Sodium Level 135 MEQ/L Potassium Level 3.5 MEQ/L Chloride Level 102 MEQ/L Carbon Dioxide Level 17.5 MEQ/L Anion Gap 16 MEQ/L Estimat Glomerular Filtration Rate 71 ML/MIN Lipase 89 U/L Urine Color YELLOW Urine Turbidity CLEAR Urine pH 5.[address] 1.014 Urine Protein NEG mg/dL Urine Glucose (UA) NEG mg/dL Urine Ketones 150 mg/dL Urine Occult Blood TRACE Urine Nitrite NEG Urine Bilirubin NEG Urine Urobilinogen LESS THAN 2.0 MG/DL Urine Leukocyte Esterase NEG Urine RBC LESS THAN 1 /hpf Urine WBC 1 /hpf Microscopic Urinalysis Comment CULT NOT INDICATED MDM Medical Decision Making Medical Screen Exam Complete: Yes Emergency Medical Condition: Yes Differential Diagnosis hematemesis, PUD, gastritis, nephrolithiasis, PE Narrative Course 32y male with a history of DVT presents to the ED c/o hematemesis, hemoptysis, and abdominal pain since this morning. Says the he starting having "stomach twisting" last night that started in his mid epigastric region that has radiated to the left flank and up his left back. States he also has shortness of breath, scant hemoptysis with left-sided chest pain with inspiration. Patient states he feels like his "lungs are sticking together". States he had one episode of nonbloody, watery light brown diarrhea last night. Denies alcohol use (x9 years), smoke 1/2PPD cigarettes, and has a remote history of seizure disorder. He does not currently take medications. Patient does not have a primary care physician. Vital signs stable, mildly tachycardic at 102. After reviewing the EMR, he signed out AMA in March after an apparent heat stroke during an observation period. In 2016 he has a work up for R sided abdominal pain. Dr. Novoa General Surgeon, evaluated him and did not believe he was a surgical candidate as his CT abdomen/pelvis was unremarkable. At that time, he was being seen for RLQ pain associated with nausea. In March 2011, he was diagnosed with a 'very small' pulmonary embolism in the RLL and questionable R jugular DVT that he acquired while in [facility]. He took coumadin and lovenox while in [facility]. I discussed this case with my attending, Dr. Hermosillo who recommended labs then imaging studies. At approximately 2:30 PM, patient stood up in his room and removed his IV stating that "we have done nothing for him in 2 hours". He states that his call light on his remote was not working. In addition, patient did not want to wait for the CT tests. I notify my attending, Dr. Hermosillo of this event and advised that if he signed out AMA that he need to be advised of all the risks. I discussed the risk of leaving AGAINST MEDICAL ADVICE and advised that he could as he has had a history of pulmonary embolism and DVT previously along with an elevated DDimer. Advised him that he could change his mind at any moment and return to the hospital for further treatment and imaging studies. I asked him to sign the AMA form and he refused. An incident report was done by EMILIANO Baker. Pt did not appear to be in pain upon departing the ER today. He was walking briskly out of the department upon last assessment. AMA: The risks of leaving against medical advice without further evaluation treatment were discussed with the patient. These risks include cardiac dysfunction, cardiac dysrhythmia, possible heart attack, possible stroke or . The patient indicated understanding of these risks and appeared to have the capacity to make this decision. Diagnosis Primary Impression: Abdominal pain Qualified Codes: R10.13 - Epigastric pain Additional Impression: Elevated d-dimer Scripts No Active Prescriptions or Reported Meds Disposition: 07 AGAINST MEDICAL ADVICE Condition: Stable Jazz Wolf Sep 12, 2017 11:53
--- NOTE | 2017-09-12 12:41 | PD ---
Data Data Last Documented VS Vital Signs Date Time Temp Pulse Resp B/P (MAP) Pulse Ox O2 Delivery O2 Flow Rate FiO2 09/12/17 14:40 09/12/17 12:47 71 19 99 Room Air 09/12/17 10:50 98.9 Orders Orders Complete Blood Count With Diff (09/12/17 11:09) Comprehensive Metabolic Panel (09/12/17 11:09) Lipase (09/12/17 11:09) Prothrombin Time / Inr (Pt) (09/12/17 11:09) Act Partial Throm Time (Ptt) (09/12/17 11:09) Urinalysis - C+S If Indicated (09/12/17 11:09) NPO (09/12/17 11:09) Ondansetron Inj (Zofran Inj) (09/12/17 11:15) Sodium Chlor 0.9% 1000 Ml Inj (Ns 1000 M (09/12/17 11:09) Electrocardiogram (09/12/17 11:09) Famotidine Inj (Pepcid Inj) (09/12/17 11:15) D-Dimer (09/12/17 11:09) Morphine Inj (Morphine Inj) (09/12/17 11:15) Morphine Inj (Morphine Inj) (09/12/17 12:45) Morphine Inj (Morphine Inj) (09/12/17 12:45) Labs Laboratory Tests Test 09/12/17 11:20 09/12/17 12:40 White Blood Count 7.6 TH/MM3 Red Blood Count 4.99 MIL/MM3 Hemoglobin 15.9 GM/DL Hematocrit 45.8 % Mean Corpuscular Volume 91.8 FL Mean Corpuscular Hemoglobin 31.8 PG Mean Corpuscular Hemoglobin Concent 34.7 % Red Cell Distribution Width 13.6 % Platelet Count 261 TH/MM3 Mean Platelet Volume 8.5 FL Neutrophils (%) (Auto) 71.2 % Lymphocytes (%) (Auto) 22.5 % Monocytes (%) (Auto) 5.1 % Eosinophils (%) (Auto) 0.2 % Basophils (%) (Auto) 1.0 % Neutrophils # (Auto) 5.4 TH/MM3 Lymphocytes # (Auto) 1.7 TH/MM3 Monocytes # (Auto) 0.4 TH/MM3 Eosinophils # (Auto) 0.0 TH/MM3 Basophils # (Auto) 0.1 TH/MM3 CBC Comment DIFF FINAL Differential Comment Prothrombin Time 11.4 SEC Prothromb Time International Ratio 1.1 RATIO Activated Partial Thromboplast Time 26.2 SEC D-Dimer Quantitative (PE/DVT) 0.61 MG/L FEU Blood Urea Nitrogen 14 MG/DL Creatinine 1.19 MG/DL Random Glucose 182 MG/DL Total Protein 8.2 GM/DL Albumin 4.6 GM/DL Calcium Level 9.5 MG/DL Alkaline Phosphatase 77 U/L Aspartate Amino Transf (AST/SGOT) 16 U/L Alanine Aminotransferase (ALT/SGPT) 18 U/L Total Bilirubin 1.0 MG/DL Sodium Level 135 MEQ/L Potassium Level 3.5 MEQ/L Chloride Level 102 MEQ/L Carbon Dioxide Level 17.5 MEQ/L Anion Gap 16 MEQ/L Estimat Glomerular Filtration Rate 71 ML/MIN Lipase 89 U/L Urine Color YELLOW Urine Turbidity CLEAR Urine pH 5.5 Urine Specific [place] 1.014 Urine Protein NEG mg/dL Urine Glucose (UA) NEG mg/dL Urine Ketones 150 mg/dL Urine Occult Blood TRACE Urine Nitrite NEG Urine Bilirubin NEG Urine Urobilinogen LESS THAN 2.0 MG/DL Urine Leukocyte Esterase NEG Urine RBC LESS THAN 1 /hpf Urine WBC 1 /hpf Microscopic Urinalysis Comment CULT NOT INDICATED MDM Supervised Visit with WILMA: Yes Narrative Course I, Dr. Hermosillo, have reviewed the advance practice practitioner's documentation and am in agreement, met with the patient face to face, made the diagnosis, and the medical decision making was done by me. *My assessment and Findings: Patient seen and examined by me in addition to Jazz Wolf, patient seems to be very calm and in no pain until I have entered the room. He is complaining of multiple symptoms as per Ms. Wolf documentation. Patient does have a history of pulmonary embolism IV drug abuse and therefore a d-dimer was sent which is minimally elevated he was recommended for a CT PE protocol as well as CT abdomen. Symptoms could be consistent with kidney stone. Patient was given additional pain medication a total of 6 mg of morphine, he was counseled closely by myself and Ms. Wolf. I was informed by nursing the following: * patient became extremely angry stating that we are doing nothing for him, that his callbell doesn't work, he is in pain, he is cold, and is thirsty. patient has been informed several times during this visit that he is awaiting his turn in CT scan, that we have called to obtain a new callbell for him from [employer]. patient has been given warm blankets several times this visist in addition to recieving Morphine 6mg for his pain and was provided with a urinal several times to use during his visit. patient balled up his AMA form and through it at the provider Jazz MERCADO. I did not have a chance to discuss with the patient the risks of signing out AMA and apparently he threw the AMA form at Ms. Wolf. He then eloped from the emergency department. Scripts No Active Prescriptions or Reported Meds Condition: Zachary Beaulieu MD Sep 12, 2017 12:41
[2017-09-12 12:47] VITALS: BP 114/57; PULSE 71; RESP 19; O2SAT 99
[2017-09-12 13:16] LABS: BILIRUBIN, URINE NEG (NEG); BLOOD, URINE TRACE (NEG); GLUCOSE,URINE NEG (NEG); KETONE, URINE 150 mg/dL (NEG); NITRITE,URINE NEG (NEG); PH, URINE 5.5 (5.0-8.5); URINE COLOR YELLOW (YELLW/STRAW); URINE LEUKOCYTE ESTERASE NEG (NEG)
--- NOTE | 2017-09-13 20:34 | EKG ---
Date Performed: 09/12/2017 Time Performed: 11:25:22 PTAGE: 32 years EKG: Sinus rhythm MINIMAL VOLTAGE CRITERIA FOR LVH, CONSIDER NORMAL VARIANT BORDERLINE ECG Since the prior tracing, th ere has been no significant change PREVIOUS TRACING : 03/28/2017 15.12 DOCTOR: Otto Zepeda Interpretating Date/Time 09/13/2017 20:24:20
== END 2017-09-12 14:40 | disposition left against medical advice (07) ==
LOC: NEPC 10:30
DX: R10.13 Epigastric pain (principal); R79.1 Abnormal coagulation profile; F17.210 Nicotine dependence, cigarettes, uncomplicated; I25.2 Old myocardial infarction; Z86.711 Personal history of pulmonary embolism
CPT/HCPCS: 80053; 81001; 83690; 85025; 85379; 85610; 85730; 93005; 96361; 96374; 96375; 96376; 99284; J2270; J2405; J7030

== ENCOUNTER 2018-04-25 10:15 | Inpatient (IN) ==
[2018-04-25] MEDS ORDERED: levETIRAcetam 1000mg/100mL Inj 100 ML IV.SIG ONE (10:22)
[2018-04-25] MEDS ORDERED: Sod Chloride 0.9% Inj 1,000 ML IV.SIG ONE (10:22)
--- NOTE | 2018-04-25 10:28 | ED ---
HPI General Chief Complaint: Seizure Stated Complaint: Poss seizure Time Seen by Provider: 04/25/18 10:22 Source: EMS Mode of arrival: EMS Limitations: altered mental status History of Present Illness HPI Narrative: The patient is a 33-year-old male who presents to the emergency apartment via EMS for seizure. According to EMS the patient has a history of seizure disorders and is currently on Keppra. The patient is allergic to Dilantin, Depakote, and phenobarbital. The patient apparently was transferred from the half-way to the court house for a hearing when he suffered a seizure. EMS states the patient's blood sugar was normal, in the 80s, but his heart rate was elevated in the 130s. EMS states when they arrived the patient was having tonic-clonic activity, was tachycardic, the back of his head was striking the ground. EMS gave a total of Versed 6 mg intravenously prior to arrival, upon arrival the patient no longer had seizure activity, but was postictal and unable to provide any information. MD complaint: seizure Onset (ago): minute(s) Description of Episode: loss of consciousness and tonic-clonic movement -: minutes(s) Witnessed: yes - by EMS Trauma: Yes Seizure History: known seizure disorder Place: other Possible Precipitating Event: none Treatments prior to arrival: benzodiazepines Related Data Home Medications Medication Instructions Recorded Confirmed levetiracetam [Keppra] 750 mg PO Q12H 04/25/18 04/25/18 trazodone 100 mg PO DAILY 04/25/18 04/25/18 Allergies Allergy/AdvReac Type Severity Reaction Status Date / Time asparagus Allergy Severe HIVES Unverified 09/12/17 10:54 carbamazepine Allergy Severe Unverified 09/12/17 10:54 coconut Allergy Severe HIVES Unverified 09/12/17 10:54 divalproex sodium Allergy Severe SWELLING Unverified 09/12/17 10:54 melon Allergy Severe HIVES Unverified 09/12/17 10:54 phenytoin Allergy Severe Rash/SWELLI Unverified 09/12/17 10:54 NG ziprasidone Allergy Severe Unverified 09/12/17 10:54 phenobarbital Allergy Unknown Unverified 09/12/17 10:54 OKRA Allergy Severe HIVES Uncoded 12/16/09 12:52 Review of Systems ROS: all other systems reviewed are negative [facility] Social History Social History Smoking Status: Unknown if ever smoked How Often Do You Have a Drink Containing Alcohol: Unable to Obtain Exam Narrative Exam Narrative: GENERAL: 33-year-old male with his eyes closed, nonverbal, appears postictal. SKIN: Focused skin assessment warm/dry. Multiple tattoos. HEAD: Atraumatic. Normocephalic. EYES: Pupils equal and round. 3 mm bilateral. No obvious nystagmus. ENT: No nasal bleeding or discharge. Mucous membranes pink and moist. No visible tongue trauma. No bleeding in the oropharynx. Positive gag reflex. NECK: Trachea midline. No JVD. CARDIOVASCULAR: Regular rate and rhythm. No murmur appreciated. Heart rate in the 80s. RESPIRATORY: No accessory muscle use. Clear to auscultation. Breath sounds equal bilaterally. GASTROINTESTINAL: Abdomen soft, non-tender, nondistended. MUSCULOSKELETAL: No obvious deformities. No clubbing. No cyanosis. No edema. NEUROLOGICAL: Eyes closed, nonverbal, no obvious rigidity. No tonic-clonic activity noted. PSYCHIATRIC: Unable to assess. Course Initial Documented Vital Signs Temperature 98 F 04/25/18 10:19 Pulse Rate 88 04/25/18 10:19 Respiratory Rate 48 H 04/25/18 10:19 Blood Pressure 177/64 H 04/25/18 10:19 Pulse Oximetry 98 04/25/18 10:19 Last Documented Vital Signs Temperature 98 F 04/25/18 10:19 Pulse Rate 100 H 04/25/18 12:22 Respiratory Rate 25 H 04/25/18 12:22 Blood Pressure 125/75 04/25/18 12:22 Pulse Oximetry 98 04/25/18 12:22 Critical Care Time Critical Care Time: Yes Total Critical Care Time: 40 Attestation: Aggregate critical care time was 40 minutes. Time to perform other separately billable procedures was not included in the critical care time. My time did not include minutes spent treating any other patients simultaneously or on activities that did not directly contribute to the patient's treatment. The services I provided to this patient were to treat and/or prevent clinically significant deterioration that could result in: Anoxia, hypoxia, aspiration, status epilepticus, chronic neurologic deficit. I provided critical care services requiring my management, as noted below: Chart data review, documentation time, medication orders and management, vital sign assessments/reviewing monitor data, ordering and reviewing lab tests, ordering and interpreting/reviewing x-rays and diagnostic studies, care of the patient and discussion of the patient with the admitting physicians. Medical Decision Making MDM Narrative Medical decision making narrative: IV was established, labs are drawn and sent, and the patient was placed on cardiac telemetry monitoring and continuous pulse oximetry monitoring. The patient was loaded with Keppra 1 g intravenously. The patient appear to be postictal, was unable to do a proper neuro assessment as he received Versed 6 mg intravenously prior to arrival. Therefore, CT of the brain was obtained. The the patient continued to seize, required a total of 6 mg Versed intravenously prior to arrival and 8 mg intravenously of Ativan after arrival as well as Keppra 1 g intravenously. The patient finally was able to awaken and have a conversation at 11 AM, however, he was confused, thought the president was President Zheng and the year was 2016. He was able to tell me that he had a seizure disorder and took Keppra. The patient had several more seizures lasting 30 seconds to 45 seconds, they would resolve after pushing Ativan 2 mg intravenously. The patient had a total of Versed 6 mg and Ativan 10 mg as of 12:30 PM. As the patient appears to have breakthrough seizures and status epilepticus, the patient may benefit from admission to the intensive care unit as he most likely will be a Hailee cat on the floor. Therefore, the on-call biosecurity officer was paged for admission. I discussed the patient with Dr. snyder who recommends loading the patient with Vimpat 100 mg intravenously. I am unsure if the patient is having pseudoseizures versus real seizures, his heart rate does elevate to the 120s and 130s with this activity, suspicious for true seizure activity. However, will order a stat EEG. The patient will go to the intensive care unit. Medical Screen Exam Complete: Yes Emergency Medical Condition: Yes Differential Diagnosis Differential Diagnosis: Differential diagnosis includes status epilepticus, seizure disorder, breakthrough seizure, subtherapeutic Keppra level, hypocalcemia, hyponatremia, intracranial hemorrhage, pseudoseizure. Lab Data Result diagrams: 04/25/18 10:28 04/25/18 10:28 Lab Results 04/25/18 04/25/18 Range/Units 10:28 10:28 WBC 4.9 (4.0-11.0) th/mm3 RBC 4.55 (4.50-5.90) mil/mm3 Hgb 14.1 (13.0-17.0) gm/dL Hct 41.2 (39.0-51.0) % MCV 90.5 (80.0-100.0) fL MCH 31.0 (27.0-34.0) pg MCHC 34.3 (32.0-36.0) % RDW 13.3 (11.6-17.2) % Plt Count 211 (150-450) th/mm3 MPV 8.3 (7.0-11.0) fL Neut % (Auto) 55.4 (16.0-70.0) % Lymph % (Auto) 36.1 (9.0-44.0) % [place] % (Auto) 6.9 (0.0-8.0) % Eos % (Auto) 0.8 (0.0-4.0) % Baso % (Auto) 0.8 (0.0-2.0) % Neut # (Auto) 2.7 (1.8-7.7) th/mm3 Lymph # (Auto) 1.8 (1.0-4.8) th/mm3 [place] # (Auto) 0.3 (0.0-0.9) th/mm3 Eos # (Auto) 0.0 (0.0-0.4) th/mm3 Baso # (Auto) 0.0 (0.0-0.2) th/mm3 WBC Differential . Differential Comment Auto diff final Sodium 143 (136-145) meq/L Potassium 3.7 (3.5-5.1) meq/L Chloride 106 (98-107) meq/L Carbon Dioxide 27.2 (21.0-32.0) meq/L Anion Gap 10 (5-15) meq/L BUN 12 (7-18) mg/dL Creatinine 1.06 (0.60-1.30) mg/dL Estimated GFR 80 L (>89) mL/min Random Glucose 86 (74-106) mg/dL Calcium 9.0 (8.5-10.1) mg/dL Magnesium 1.9 (1.5-2.5) mg/dL Total Bilirubin 0.3 (0.2-1.0) mg/dL AST 11 L (15-37) U/L ALT 27 (12-78) U/L Alkaline Phosphatase 59 (45-117) U/L Total Protein 7.5 (6.4-8.2) g/dL Albumin 4.1 (3.4-5.0) g/dL Imaging Data Radiologist's impression: Head CT 04/25/18 10:22 CONCLUSION: 1. Negative CT Head non contrast. . ECG Data EKG Prior to Arrival: No Attestation: I personally reviewed and interpreted this ECG as follows: Interpretation: EKG reveals normal sinus rhythm with a rate 87. J-point elevation noted. Q waves noted in lead II, III, aVF, V4, V5, and V6. Discharge Plan Discharge Disposition Patient Disposition: 30 Still Patient Discharge Condition Condition: Stable Discharge Details Diagnosis: Status epilepticus Physicians Team ED Provider: Barrington Philippe Primary Care Provider: Primary Care Latrice Sanchez Rxs /Orders / Referrals /Forms Prescriptions: No Action trazodone 100 mg Tablet 100 mg PO DAILY RF: 0 levetiracetam [Keppra] 750 mg Tablet 750 mg PO Q12H RF: 0 Status ED Status: Pending Admission
[2018-04-25 11:17] LABS: Baso % (Auto) 0.8 % (0.0-2.0); Eos % (Auto) 0.8 % (0.0-4.0); Hematocrit 41.2 % (39.0-51.0); Hemoglobin 14.1 gm/dL (13.0-17.0); Lymph # (Auto) 1.8 th/mm3 (1.0-4.8); Lymph % (Auto) 36.1 % (9.0-44.0); Mean Corpuscular HGB Conc 34.3 % (32.0-36.0); Mean Corpuscular Volume 90.5 fL (80.0-100.0); Mean Platelet Volume 8.3 fL (7.0-11.0); Mono # (Auto) 0.3 th/mm3 (0.0-0.9); Mono % (Auto) 6.9 % (0.0-8.0); Neut # (Auto) 2.7 th/mm3 (1.8-7.7); Neut % (Auto) 55.4 % (16.0-70.0); Platelet Count 211 th/mm3 (150-450); Red Blood Count 4.55 mil/mm3 (4.50-5.90); Red Cell Distribution Width 13.3 % (11.6-17.2); White Blood Count 4.9 th/mm3 (4.0-11.0)
[2018-04-25 11:34] LABS: Alanine Aminotransferase 27 U/L (12-78); Albumin 4.1 g/dL (3.4-5.0); Anion Gap 10 meq/L (5-15); Aspartate Aminotransferase 11 U/L (15-37); Blood Urea Nitrogen 12 mg/dL (7-18); Carbon Dioxide 27.2 meq/L (21.0-32.0); Chloride 106 meq/L (98-107); Glomerular Filtration Rate 80 mL/min (>89); Glucose,Random 86 mg/dL (74-106); Magnesium 1.9 mg/dL (1.5-2.5); Potassium 3.7 meq/L (3.5-5.1); Sodium 143 meq/L (136-145)
[2018-04-25 11:37] LABS: Alkaline Phosphatase 59 U/L (45-117); Total Protein 7.5 g/dL (6.4-8.2)
--- NOTE | 2018-04-25 11:49 | CT ---
EXAM DATE: 04/25/2018 11:45 AM EDT AGE/SEX: 33 years / Male INDICATIONS: Trauma, hit head on floor during seizure. CLINICAL DATA: This is the patient's initial encounter. Patient reports that signs and symptoms have been present for 1 day and indicates a pain score of 0/10. MEDICAL/SURGICAL HISTORY: Seizures. None. RADIATION DOSE: 56.35 CTDI (mGy) COMPARISON: [facility] – [place], CT BRAIN W/O CONTRAST, 03/28/2017. [facility] [place], CT BRAIN W/O CONTRAST, 03/06/2011. . TECHNIQUE: CT of the head without contrast. Using automated exposure control and adjustment of the mA and/or kV according to patient size, radiation dose was kept as low as reasonably achievable to ob tain optimal diagnostic quality images. DICOM format image data is available electronically for revi ew and comparison. FINDINGS: Cerebrum: The ventricles are normal for age. No evidence of midline shift, mass lesion, hemorrhage or acute infarction. No extraaxial fluid collections are seen. Posterior Fossa: The cerebellum and brainstem are intact. The 4th ventricle is midline. The cerebe llopontine angle is unremarkable. Extracranial: The visualized portion of the orbits is intact. Skull: The calvaria is intact. No evidence of skull fracture. CONCLUSION: 1. Negative CT Head non contrast. . Electronically signed by: Zachary Chappell MD 04/25/2018 11:48 AM EDT
[2018-04-25] MEDS ORDERED: Lacosamide Inj 100 MG in Sodium Chlor 0.9% Inj 100 ML IV.SIG ONE (12:54)
[2018-04-25] MEDS ORDERED: Acetaminophen 325 MG Tablet PO PRN (13:25)
[2018-04-25] MEDS ORDERED: Morphine Sulfate Inj 2 MG/ML Vial IV.PUSH PRN (13:25)
[2018-04-25] MEDS ORDERED: Bisacodyl 10 MG Supp RECTAL PRN (13:25)
[2018-04-25] MEDS ORDERED: Lacosamide Inj 100 MG in Sodium Chlor 0.9% Inj 100 ML IV.SIG SCH (13:30)
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
[2018-04-25] MEDS ORDERED: Magnesium Sulfate Inj 4 GM in Sodium Chlor 0.9% Inj 92 ML IV.SIG PRN (13:53)
[2018-04-25] MEDS ORDERED: Sodium Phosphate Inj 30 MMOL in Sodium Chlor 0.9% Inj 250 ML IV.SIG PRN (13:53)
[2018-04-25] MEDS ORDERED: Potassium Chlor 40 mEq Premix 40 MEQ/100 ML PIGGYBACK IV.SIG PRN ×2 (13:53)
[2018-04-25] MEDS ORDERED: Magnesium Sulfate Inj 2 GM in Sodium Chlor 0.9% Inj 96 ML IV.SIG PRN (13:53)
[2018-04-25] MEDS ORDERED: Potassium Chlor 20 mEq Premix 20 MEQ/100 ML PIGGYBACK IV.SIG PRN ×2 (13:53)
[2018-04-25] MEDS ORDERED: Magnesium Oxide 400 MG Tablet PO PRN (13:53)
[2018-04-25] MEDS ORDERED: Potassium Phosphate 500 MG Soluble Tablet PO PRN ×2 (13:53)
[2018-04-25] MEDS ORDERED: Potassium Chloride 25 MEQ Effervescent Tablet PO PRN (13:53)
[2018-04-25] MEDS ORDERED: Potassium Phosphate Inj 30 MMOL in Sodium Chlor 0.9% Inj 250 ML IV.SIG PRN (13:53)
[2018-04-25] MEDS ORDERED: Dextrose 50% in Water 50 ML Vial IV.PUSH PRN (13:54)
[2018-04-25 14:19] LABS: ABG Base Excess 1.8 mmol/L (-2-2); ABG PCO2 45 mmHg (38-42); ABG PO2 46 mmHg (61-120)
[2018-04-25] MEDS: Sod Chloride 0.9% Inj 1,000 ML IV.CONT SCH (14:26)
--- NOTE | 2018-04-25 14:34 | XR ---
EXAM DATE: 04/25/2018 2:26 PM EDT AGE/SEX: 33 years / Male INDICATIONS: Short of breath. CLINICAL DATA: This is the patient's initial encounter. Patient reports that signs and symptoms have been present for 1 day and indicates a pain score of Nonresponsive. MEDICAL/SURGICAL HISTORY: Cardiovascular disease. seizures, PE None. COMPARISON: [facility] [place], 03/28/2017. . FINDINGS: A single AP view of the chest demonstrates the lungs to be symmetrically aerated without evidence of mass, infiltrate or effusion. The cardiomediastinal contours are unremarkable. Osseous structures a re intact. CONCLUSION: Negative examination. Electronically signed by: Timmy Bains MD 04/25/2018 2:32 PM EDT
[2018-04-25] MEDS: Potassium Chlor 10 mEq Premix 10 MEQ/100 ML PIGGYBACK IV.SIG SCH ×3 (14:35→18:20)
--- NOTE | 2018-04-25 15:14 | MB ---
cc: Kennedi Carvajal MD DATE: 04/25/2018 REASON FOR CONSULTATION: Seizures. HISTORY OF PRESENT ILLNESS: This is a 33-year-old man admitted today; 04/25/2018 with a history of epilepsy, currently incarcerated, apparently he comes in for breakthrough seizures. He is currently on Keppra 750 mg b.i.d.; MULTIPLE ANTIEPILEPTIC ALLERGIES TO DILANTIN, DEPAKOTE, PHENOBARBITAL, , TEGRETOL in another note. He was apparently transferred from long-term to the courthouse for a hearing when he had a witnessed tonic-clonic event. Currently, he is in the ER; awake having an EEG. He did receive 6 mg of Versed IV prior to arriving to the hospital. He also received another gram of Keppra; a total of 12 mg. I have recommended when they called me; lacosamide at 100 mg IV one time and then continuing it b.i.d. dosing. MRI of the brain is pending. EEG was just completed and there are some sharps seen. A full report will be dictated by the reading physician. PHYSICAL EXAMINATION: VITAL SIGNS: Temperature 98, heart rate 100, respiratory rate 25, blood pressure 125/75, saturating at 98% on 3 liters. NEUROLOGIC: He is awake, asking for food; fluent. Pupils reactive. No tongue biting. He states he does not have teeth on the top. Motor-montiel; no deficits, no drift, no leg lag. Sensory normal. Gait is withheld. LABORATORY DATA: Labs are reviewed. CBC is normal. Blood gas: O2 saturation was 82, pO2 is 46. His pH was 7.39, bicarbonate was 26. Chemistries: GFR 80, AST 11. IMAGING: CT head was negative. IMPRESSION: A 33-year-old male with history of epilepsy, possible breakthrough seizure. PLAN: Recommend continuing his Keppra. We will get a Keppra level; continue him on lacosamide 100 mg b.i.d.; maintain seizure precautions. MRI is pending. EEG was just completed and further recommendations will be made if needed. Kennedi Carvajal MD DF/rosalio/ll , 02:28 PM , 02:34 PM
[2018-04-25 15:33] LABS: Amphetamine Screen,Urine Neg (Neg); Barbiturate Screen,Urine Neg (Neg); Cannabinoid Screen,Urine Neg (Neg); Cocaine Screen,Urine Neg (Neg)
[2018-04-25 15:35] LABS: Opiate Screen,Urine Neg (Neg)
[2018-04-25] MEDS: Mag Sulf 1 gm/100 ml Premix 100 ML IV.SIG SCH ×2 (15:35→19:05)
[2018-04-25 16:34] LABS: Thyroid Stimulating Hormone 2.39 uIU/mL (0.358-3.740)
[2018-04-25] MEDS ORDERED: Etomidate Inj 40 MG/20 ML Vial IV.PUSH ONE (16:34)
--- NOTE | 2018-04-25 16:45 | P.PCN ---
Date of procedure: 04/25/18 Pre-op diagnosis: Acute respiratory failure/seizure Post-op diagnosis: same Procedure: DATE: 04/25/2018 PROCEDURE: Orotracheal intubation INDICATION: Acute respiratory failure DETAILS OF PROCEDURE The patient was placed in optimal position and preoxygenated with 100% FiO2 via bag valve mask. At the start oxygen saturation was 98%. The patient was administered 20 milligrams etomidate IV and 50 milligrams rocuronium IV. I entered the oropharynx with a size 4 laryngoscope blade and obtained a grade 2 view of the airway. On single attempt a size 8.0 cuffed endotracheal tube was passed through the vocal cords. Correct tube location was confirmed with end tidal CO2 detector and by auscultating over bilateral lung caputo. The endotracheal tube was secured with adhesive tape at a depth of 24 cm at the lips. The patient was connected to the ventilator. The patient tolerated the procedure well without any apparent complications. Oxygen saturations were maintained greater than 95% all times. STAT chest x-ray pending at time of dictation.
--- NOTE | 2018-04-25 17:29 | XR ---
EXAM DATE: 04/25/2018 5:19 PM EDT AGE/SEX: 33 years / Male INDICATIONS: Post intubation. CLINICAL DATA: This is the patient's subsequent encounter. Patient reports that signs and symptoms h ave been present for 1 day and indicates a pain score of Nonresponsive. MEDICAL/SURGICAL HISTORY: . Cardiovascular disease. Seizures, PE. None. COMPARISON: [facility] [place], CHEST 1V SINGLE AP, 04/25/2018. . FINDINGS: A single AP view of the chest demonstrates the lungs to be symmetrically aerated without evidence of mass, infiltrate or effusion. Endotracheal tube is identified with the tip appropriately positioned above the lisha. A second 2 is identified just above the clavicles and appears to be folded back on itself. The cardiomediastinal contours are unremarkable. Osseous structures are intact. CONCLUSION: 1. Interval placement of an endotracheal tube tip appropriately positioned above the lisha. 2. However, there is a second tube which appears to be folded back on itself. The apex of the bend i s positioned just above the clavicles. 3. Lungs remain clear. Electronically signed by: Song Lugo MD 04/25/2018 5:28 PM EDT
[2018-04-25] MEDS ORDERED: Labetalol HCl Inj 100 MG/20 ML Vial IV.PUSH PRN (17:52)
[2018-04-25] MEDS ORDERED: hydrALAZINE HCl Inj 20 MG/ML Vial IV.PUSH PRN (17:53)
[2018-04-25 18:15] LABS: ABG Base Excess -1.5 mmol/L (-2-2); ABG PCO2 43 mmHg (38-42); ABG PO2 58 mmHG (61-120)
--- NOTE | 2018-04-25 19:14 | ECG ---
Date Performed: 04/25/2018 Time Performed: 10:21:32 PTAGE: 33 years EKG: Sinus rhythm MINIMAL VOLTAGE CRITERIA FOR LVH, CONSIDER NORMAL VARIANT ST ELEVATION, PROBABLY EARLY REPOLARIZATIO N BORDERLINE ECG INTERPRETATION BASED ON A DEFAULT AGE OF 40 YEARS PREVIOUS TRACING : 09/12/2017 11.25 Since the previous tracing, no significant change not ed DOCTOR: Bautista Carlos Interpretating Date/Time 04/25/2018 19:13:09
--- NOTE | 2018-04-25 19:31 | MR ---
EXAM DATE: 04/25/2018 7:20 PM EDT AGE/SEX: 33 years / Male INDICATIONS: Seizures. CLINICAL DATA: This is the patient's initial encounter. Patient reports that signs and symptoms have been present for 1 day and indicates a pain score of Nonresponsive. MEDICAL/SURGICAL HISTORY: Non-responsive. Non-responsive. COMPARISON: No prior exams available for comparison. TECHNIQUE: Multiplanar, multisequence examination of the brain was performed without contrast. FINDINGS: No intracranial mass, hemorrhage or shift. No hydrocephalus. No abnormal extra-axial fluid collection s. Brainstem appears intact. No sellar mass. No recent infarct. CONCLUSION: 1. Unremarkable MRI brain. Electronically signed by: Gary Bryant MD 04/25/2018 7:29 PM EDT
[2018-04-25] MEDS: Heparin - SQ 10,000 UNITS/ML Vial SQ SCH (20:09)
[2018-04-25] MEDS: Insulin NovoLOG Aspart Correctional Sugar Inj SQ SCH (20:10)
[2018-04-25] MEDS: Midazolam 50 MG/50 ML Inj 50 MG/50 ML BAG IV.CONT PRN (20:14)
[2018-04-25] MEDS: Propofol 1000 mg/100 ml Inj 1,000 MG/100 ML BOTTLE IV.CONT PRN (20:16)
--- NOTE | 2018-04-25 21:13 | XR ---
EXAM DATE: 04/25/2018 9:09 PM EDT AGE/SEX: 33 years / Male INDICATIONS: OG tube placement. CLINICAL DATA: This is the patient's initial encounter. Patient reports that signs and symptoms have been present for 1 day and indicates a pain score of Nonresponsive. MEDICAL/SURGICAL HISTORY: . Cardiovascular disease. Seizures, PE. None. COMPARISON: . FINDINGS: Endotracheal tube is in good position just over a centimeter above the lisha. Nasogastric or orogast jony tube is coiled in the stomach. Minimal basilar atelectasis. No pneumothorax identified. CONCLUSION: Orogastric tube coiled in stomach. Endotracheal tube in good position. Electronically signed by: Gary Bryant MD 04/25/2018 9:11 PM EDT
--- NOTE | 2018-04-25 21:35 | MG ---
cc: Yunier Santana MD EEG NUMBER: [id number] INDICATION: given benzodiazepine. Frequent eye movement artifact, blink artifact with increased beta frequencies noted in the EEG. Posterior rhythm showing 8-13 Hz activity, 10-40 microvolts. Reasonable driving with photic stimulation. Single lead EKG showing sinus rhythm. INTERPRETATION: Polyfrequency EEG increased beta frequencies likely due to benzodiazepine effect. Frequent eye movement artifact. No active seizures. Stable awake electroencephalogram. Clinical correlation. Yunier Santana MD MG/sj , 08:44 PM , 08:48 PM
[2018-04-25] MEDS: Senna/Docusate Sodium 8.6/50 MG Tablet PO SCH (22:07)
[2018-04-25] MEDS: Chlorhexidine 0.12% Oral Kit 15 ML UDC OROPHARYNG SCH (22:07)
[2018-04-25] MEDS: levETIRAcetam 1000mg/100mL Inj 100 ML IV.SIG SCH (22:08)
[2018-04-26] MEDS: Sod Chloride 0.9% Inj 1,000 ML IV.CONT SCH ×3 (00:13→17:33)
[2018-04-26] MEDS: Midazolam 50 MG/50 ML Inj 50 MG/50 ML BAG IV.CONT PRN ×4 (00:14→20:49)
[2018-04-26] MEDS: Propofol 1000 mg/100 ml Inj 1,000 MG/100 ML BOTTLE IV.CONT PRN ×7 (00:14→20:14)
[2018-04-26] MEDS: Insulin NovoLOG Aspart Correctional Sugar Inj SQ SCH ×4 (00:33→18:36)
[2018-04-26] MEDS: Oral Hygiene Kit OROPHARYNG SCH ×4 (00:43→17:28)
[2018-04-26] MEDS: Lacosamide Inj 100 MG in Sodium Chlor 0.9% Inj 100 ML IV.SIG SCH ×2 (01:58→20:22)
[2018-04-26] MEDS ORDERED: Chlorhexidine Gluconate 2% 1 Pack (2 Cloths) TOPICAL PRN (04:00)
[2018-04-26 04:33] LABS: Baso % (Auto) 0.4 % (0.0-2.0); Eos % (Auto) 0.4 % (0.0-4.0); Hemoglobin 13.5 gm/dL (13.0-17.0); Lymph # (Auto) 1.6 th/mm3 (1.0-4.8); Lymph % (Auto) 16.1 % (9.0-44.0); Mean Corpuscular HGB Conc 34.6 % (32.0-36.0); Mean Corpuscular Hemoglobin 30.7 pg (27.0-34.0); Mean Corpuscular Volume 88.9 fL (80.0-100.0); Mean Platelet Volume 7.9 fL (7.0-11.0); Mono # (Auto) 0.7 th/mm3 (0.0-0.9); Mono % (Auto) 7.5 % (0.0-8.0); Neut # (Auto) 7.4 th/mm3 (1.8-7.7); Neut % (Auto) 75.6 % (16.0-70.0); Platelet Count 190 th/mm3 (150-450); Red Blood Count 4.39 mil/mm3 (4.50-5.90); Red Cell Distribution Width 13.4 % (11.6-17.2); White Blood Count 9.8 th/mm3 (4.0-11.0)
[2018-04-26 04:40] LABS: Activated Partial Thrombo Time 23.5 sec (24.3-30.1); Prothrombin Time 10.5 sec (9.8-11.6)
[2018-04-26] MEDS: Chlorhexidine Gluconate 2% 1 Pack (2 Cloths) TOPICAL SCH (04:53)
[2018-04-26 04:55] LABS: Alanine Aminotransferase 25 U/L (12-78); Albumin 3.5 g/dL (3.4-5.0); Alkaline Phosphatase 62 U/L (45-117); Anion Gap 7 meq/L (5-15); Aspartate Aminotransferase 15 U/L (15-37); Blood Urea Nitrogen 9 mg/dL (7-18); Calcium 8.1 mg/dL (8.5-10.1); Chloride 110 meq/L (98-107); Glomerular Filtration Rate Greater Than 89 mL/min (>89); Glucose,Random 92 mg/dL (74-106); Magnesium 2.1 mg/dL (1.5-2.5); Phosphorus 2.1 mg/dL (2.5-4.9); Potassium 3.4 meq/L (3.5-5.1); Sodium 143 meq/L (136-145); Total Protein 6.4 g/dL (6.4-8.2)
--- NOTE | 2018-04-26 06:04 | XR ---
EXAM DATE: 04/26/2018 6:01 AM EDT AGE/SEX: 33 years / Male INDICATIONS: Shortness of breath CLINICAL DATA: This is the patient's subsequent encounter. Patient reports that signs and symptoms h ave been present for 2 days and indicates a pain score of Nonresponsive. MEDICAL/SURGICAL HISTORY: . Cardiovascular disease. Seizures. PE None. COMPARISON: [facility], CHEST 1V SINGLE AP, 04/25/2018. . FINDINGS: No infiltrate, effusion or pneumothorax demonstrated. Heart size stable, within normal limits. Endotracheal tube tip is approximately 2 cm above the lisha. There is a nasogastric tube coursing in to the stomach. CONCLUSION: Clear lungs. Appropriately positioned endotracheal tube and nasogastric tube. Electronically signed by: Evin Burks MD 04/26/2018 6:02 AM EDT
[2018-04-26] MEDS: Heparin - SQ 10,000 UNITS/ML Vial SQ SCH ×2 (06:05→18:36)
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
[2018-04-26] MEDS: Pantoprazole Inj 40 MG Vial IV.PUSH SCH (09:18)
[2018-04-26] MEDS: Chlorhexidine 0.12% Oral Kit 15 ML UDC OROPHARYNG SCH ×2 (09:18→20:42)
[2018-04-26] MEDS: levETIRAcetam 1000mg/100mL Inj 100 ML IV.SIG SCH (09:18)
[2018-04-26] MEDS: Senna/Docusate Sodium 8.6/50 MG Tablet PO SCH ×2 (09:24→20:50)
[2018-04-26] MEDS ORDERED: Potassium Phosphate Inj 30 MMOL in Sodium Chlor 0.9% Inj 250 ML IV.SIG ONE (11:00)
--- NOTE | 2018-04-26 16:10 | ECHRPT ---
Indication: chest pain CONCLUSIONS Wall thickness is normal. Normal left ventricular size. The left ventricular systolic function is low normal with an estimated ejection fraction in the rang e of 50- 55%. Trace mitral valve regurgitation. There is mild tricuspid valve regurgitation. The estimated pulmonary arterial pressure is 27 mmHg. BP: / HR: Rhythm: MEASUREMENTS (Male / Female) Normal Values Technical Quality: 2D ECHO LV Diastolic Diameter PLAX 4.6 cm 4.2 - 5.9 / 3.9 - 5.3 cm LV Systolic Diameter PLAX 3.3 cm IVS Diastolic Thickness 0.8 cm 0.6 - 1.0 / 0.6 - 0.9 cm LVPW Diastolic Thickness 0.9 cm 0.6 - 1.0 / 0.6 - 0.9 cm LV Relative Wall Thickness 0.4 RV Internal Dim ED PLAX 2.7 cm LVOT Diameter 1.8 cm Aortic Root Diameter 2.6 cm LA Systolic Diameter LX 3.0 cm 3.0 - 4.0 / 2.7 - 3.8 cm LV Ejection Fraction MOD 4C 54.3 % LV Ejection Fraction 4C AL 55.3 % M-MODE Aortic Root Diameter MM 3.0 cm LA Systolic Diameter MM 4.4 cm LA Ao Ratio MM 1.5 AV Cusp Separation MM 2.0 cm DOPPLER AV Peak Velocity 99.9 cm/s AV Peak Gradient 4.0 mmHg LVOT Peak Velocity 88.8 cm/s LVOT Peak Gradient 3.2 mmHg AV Area Cont Eq pk 2.3 cm Mitral E Point Velocity 70.1 cm/s Mitral A Point Velocity 50.3 cm/s Mitral E to A Ratio 1.4 LV E' Lateral Velocity 13.5 cm/s Mitral E to LV E' Lateral Ratio 5.2 LV E' Septal Velocity 10.0 cm/s Mitral E to LV E' Septal Ratio 7.0 TV Peak Velocity 209.0 cm/s TR Peak Velocity 205.0 cm/s TR Peak Gradient 16.8 mmHg Right Atrial Pressure 10.0 mmHg Pulmonary Artery Systolic Pressu 26.8 mmHg Right Ventricular Systolic Press 26.8 mmHg PV Peak Velocity 118.0 cm/s PV Peak Gradient 5.6 mmHg FINDINGS LEFT VENTRICLE Wall thickness is normal. Normal left ventricular size. The left ventricular systolic function is low normal with an estimated ejection fraction in the rang e of 50- 55%. RIGHT VENTRICLE Normal right ventricular size and systolic function. LEFT ATRIUM The left atrial size is normal. RIGHT ATRIUM The right atrial size is normal. ATRIAL SEPTUM Normal atrial septal thickness without atrial level shunting by limited color doppler interrogation. AORTA The aortic root and proximal ascending aorta are normal in size on limited imaging. MITRAL VALVE Trace mitral valve regurgitation. AORTIC VALVE Trileaflet aortic valve. No aortic valve stenosis or regurgitation. TRICUSPID VALVE There is mild tricuspid valve regurgitation. The estimated pulmonary arterial pressure is 27 mmHg. PULMONARY VALVE No pulmonary valve regurgitation or stenosis. VESSELS The inferior vena cava is normal in size. PERICARDIUM No pericardial effusion. Timmy Tellez MD, FACC (Electronically Signed) Final Date:26 April 2018 16:09
[2018-04-26] MEDS ORDERED: Dexmedetomidine Inj 200 MCG in Sodium Chlor 0.9% Inj 48 ML IV.CONT PRN (16:38)
[2018-04-26 17:17] LABS: Creatine Kinase 307 U/L (39-308)
[2018-04-26] MEDS: SODIUM CHLOR 0.9% IV.SIG SCH (20:49)
[2018-04-26] MEDS: LACOSAMIDE IV.SIG SCH (20:49)
[2018-04-27] MEDS: Insulin NovoLOG Aspart Correctional Sugar Inj SQ SCH ×4 (00:07→17:49)
[2018-04-27] MEDS: Sod Chloride 0.9% Inj 1,000 ML IV.CONT SCH ×2 (00:07→01:53)
[2018-04-27] MEDS: Propofol 1000 mg/100 ml Inj 1,000 MG/100 ML BOTTLE IV.CONT PRN ×2 (00:07→05:05)
[2018-04-27] MEDS: Oral Hygiene Kit OROPHARYNG SCH ×4 (00:07→17:04)
[2018-04-27] MEDS: Chlorhexidine Gluconate 2% 1 Pack (2 Cloths) TOPICAL SCH (04:25)
[2018-04-27] MEDS: Midazolam 50 MG/50 ML Inj 50 MG/50 ML BAG IV.CONT PRN (05:06)
[2018-04-27] MEDS: Heparin - SQ 10,000 UNITS/ML Vial SQ SCH ×2 (05:46→17:40)
[2018-04-27 08:22] LABS: Baso # (Auto) 0.1 th/mm3 (0.0-0.2); Baso % (Auto) 0.5 % (0.0-2.0); Eos # (Auto) 0.1 th/mm3 (0.0-0.4); Eos % (Auto) 1.1 % (0.0-4.0); Hematocrit 41.5 % (39.0-51.0); Hemoglobin 14.2 gm/dL (13.0-17.0); Lymph # (Auto) 1.7 th/mm3 (1.0-4.8); Lymph % (Auto) 15.5 % (9.0-44.0); Mean Corpuscular HGB Conc 34.1 % (32.0-36.0); Mean Corpuscular Hemoglobin 31.1 pg (27.0-34.0); Mean Corpuscular Volume 91.1 fL (80.0-100.0); Mean Platelet Volume 7.8 fL (7.0-11.0); Mono # (Auto) 1.1 th/mm3 (0.0-0.9); Neut # (Auto) 7.9 th/mm3 (1.8-7.7); Neut % (Auto) 72.9 % (16.0-70.0); Platelet Count 176 th/mm3 (150-450); Red Blood Count 4.56 mil/mm3 (4.50-5.90); Red Cell Distribution Width 13.6 % (11.6-17.2); White Blood Count 10.8 th/mm3 (4.0-11.0)
[2018-04-27] MEDS: Senna/Docusate Sodium 8.6/50 MG Tablet PO SCH ×2 (08:43→20:22)
[2018-04-27] MEDS: Pantoprazole Inj 40 MG Vial IV.PUSH SCH (08:53)
[2018-04-27] MEDS: SODIUM CHLOR 0.9% IV.SIG SCH ×2 (08:53→21:00)
[2018-04-27] MEDS: LACOSAMIDE IV.SIG SCH ×2 (08:53→21:00)
[2018-04-27] MEDS: Chlorhexidine 0.12% Oral Kit 15 ML UDC OROPHARYNG SCH ×2 (09:01→20:22)
[2018-04-27 10:08] LABS: Alanine Aminotransferase 27 U/L (12-78); Albumin 3.5 g/dL (3.4-5.0); Alkaline Phosphatase 58 U/L (45-117); Anion Gap 11 meq/L (5-15); Aspartate Aminotransferase 42 U/L (15-37); Blood Urea Nitrogen 7 mg/dL (7-18); Calcium 8.6 mg/dL (8.5-10.1); Carbon Dioxide 20.3 meq/L (21.0-32.0); Chloride 114 meq/L (98-107); Glomerular Filtration Rate Greater Than 89 mL/min (>89); Glucose,Random 84 mg/dL (74-106); Phosphorus 3.3 mg/dL (2.5-4.9); Potassium 4.4 meq/L (3.5-5.1); Total Protein 6.8 g/dL (6.4-8.2)
[2018-04-27 10:09] LABS: Sodium 145 meq/L (136-145)
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
--- NOTE | 2018-04-27 10:53 | P.PNNEU ---
Subjective Subjective Comments: Cross cover. No reported seizures Active Medications: Active Medications Acetaminophen (Tylenol) 650 mg PO Q6H PRN PRN Reason: FOR FEVER >101F Last Admin: 04/26/18 20:02 Dose: 650 mg Hydrocodone Bitart/Acetaminophen ([place] 5/325) 1 tab PO Q4H PRN PRN Reason: PAIN SCALE 1 TO 5 Al Hydroxide/Mg Hydroxide (Milk Of [place]) 30 ml PO Q12H PRN PRN Reason: Mild Constipation Albuterol (Albuterol Neb (Prn)) 2.5 mg NEB Q2HR NEB PRN PRN Reason: SHORTNESS OF BREATH/WHEEZING Bisacodyl (Dulcolax Supp) 10 mg RECTAL DAILY PRN PRN Reason: SEVERE CONSITIPATION Chlorhexidine Gluconate (Chlorhexidine 2% Cloth) 3 pack TOPICAL DAILY@0400 [facility] Stop: 05/01/18 03:59 Last Admin: 04/27/18 04:25 Dose: 3 pack Chlorhexidine Gluconate (Chlorhexidine 2% Cloth) 3 pack TOPICAL DAILY@0400 PRN PRN Reason: Extra cloth needed Stop: 05/01/18 03:59 Chlorhexidine Gluconate (Peridex 0.12% Oral Kit) 15 ml OROPHARYNG BID@0800, 2000 [facility] Last Admin: 04/27/18 09:01 Dose: 15 ml Dextrose (D50w Vial) 50 ml IV.PUSH UNSCH PRN PRN Reason: PER HYPOGLYCEMIA PROTOCOL Glucagon (Glucagon Inj) 1 mg OTHER PRN PRN PRN Reason: for Hypoglycemia Protocol Heparin Sodium (Porcine) (Heparin Inj) 5,000 units SQ Q12H [facility] Last Admin: 04/27/18 05:46 Dose: 5,000 units Hydralazine HCl (Apresoline Inj) 10 mg IV.PUSH Q1H PRN PRN Reason: SBP>160, DBP>90 Cefazolin Sodium 1,000 mg/ (Sodium Chloride) 100 mls @ 200 mls/hr IV.SIG [employer]ING [employer] [facility] Stop: 04/28/18 13:59 Magnesium Sulfate 4 gm/ Sodium (Chloride) 100 mls @ 50 mls/hr IV.SIG UNSCH PRN PRN Reason: For Magnesium 0.9 - 1.1 mg/dL Magnesium Sulfate 2 gm/ Sodium (Chloride) 100 mls @ 50 mls/hr IV.SIG UNSCH PRN PRN Reason: For Magnesium 1.2 - 1.6 mg/dL Potassium Chloride (Kcl 40 Meq Premix Inj) 40 meq in 100 mls @ 25 mls/hr IV.SIG Q2H PRN PRN Reason: For Potassium 2.8 - 3.2 mEq/L Potassium Chloride (Kcl 20 Meq Premix Inj) 20 meq in 100 mls @ 50 mls/hr IV.SIG Q2H PRN PRN Reason: For Potassium 3.3 - 3.5 mEq/L Last Infusion: 04/26/18 20:23 Dose: Infused Potassium Chloride (Kcl 40 Meq Premix Inj) 40 meq in 100 mls @ 25 mls/hr IV.SIG UNSCH PRN PRN Reason: For Potassium 3.3 - 3.5 mEq/L Potassium Chloride (Kcl 20 Meq Premix Inj) 20 meq in 100 mls @ 50 mls/hr IV.SIG Q2H PRN PRN Reason: For Potassium 2.8 - 3.2 mEq/L Potassium Phosphate 30 mmol/ (Sodium Chloride) 260 mls @ 42 mls/hr IV.SIG UNSCH PRN PRN Reason: SEE LABEL COMMENTS Sodium Phosphate 30 mmol/ (Sodium Chloride) 260 mls @ 42 mls/hr IV.SIG UNSCH PRN PRN Reason: For Phosphorus < 2.5 mg/dL Midazolam HCl (Versed Inj) 50 mg in 50 mls @ 2 mls/hr IV.CONT TITRATE PRN; Protocol PRN Reason: Per Protocol Last Admin: 04/27/18 05:06 Dose: 6 mg/hr, 6 mls/hr Propofol (Diprivan 1000 Mg/100 Ml Inj) 1,000 mg in 100 mls @ 2.858 mls/hr IV.CONT TITRATE PRN; Protocol PRN Reason: Per Protocol Last Admin: 04/27/18 05:05 Dose: 30 mcg/kg/min, 17.15 mls/hr Dexmedetomidine HCl 200 mcg/ (Sodium Chloride) 50 mls @ 4.76 mls/hr IV.CONT TITRATE PRN; Protocol PRN Reason: Per Protocol Levetiracetam 500 mg/ Sodium (Chloride) 105 mls @ 400 mls/hr IV.SIG Q12H NOY Last Admin: 04/27/18 08:53 Dose: 400 mls/hr Lacosamide 150 mg/ Sodium (Chloride) 115 mls @ 115 mls/hr IV.SIG Q12HR [facility] Last Admin: 04/27/18 08:53 Dose: 115 mls/hr Dextrose/Sodium Chloride (D5w/Normal Saline Inj) 1,000 mls @ 84 mls/hr IV.CONT .[id number] [facility] Insulin Aspart (Novolog Insulin Correctional Sugar Inj) 0 unit SQ Q6HR [facility]; Protocol Last Admin: 04/27/18 05:05 Dose: Not Given Labetalol HCl (Trandate Inj) 10 mg IV.PUSH Q1H PRN PRN Reason: Sbp>160, Dbp>90, Hr>65 Lactulose (Lactulose Liq) 30 ml PO DAILY PRN PRN Reason: SEVERE CONSITIPATION Magnesium Oxide (Mag-Ox) 800 mg PO UNSCH PRN PRN Reason: For Magnesium 1.2 - 1.6 mg/dL Miscellaneous Medication () 1 each OROPHARYNG 0000,0400,1200,1600 [facility] Last Admin: 04/27/18 04:25 Dose: 1 each Morphine Sulfate (Morphine Inj) 2 mg IV.PUSH Q2H PRN PRN Reason: PAIN SCALE 6 TO 10 Nitroglycerin (Nitro-Bid 2% Oint) 2 inch TOPICAL Q6HR PRN PRN Reason: SBP>160, DBP>90 Ondansetron HCl (Zofran Inj) 4 mg IV.PUSH Q6H PRN PRN Reason: NAUSEA OR VOMITING Pantoprazole Sodium (Protonix Inj) 40 mg IV.PUSH DAILY [facility] Last Admin: 04/27/18 08:53 Dose: 40 mg Potassium Bicarb/Potassium Chloride (K-Lyte Cl Eff) 50 meq PO UNSCH PRN PRN Reason: For Potassium 3.3 - 3.5 mEq/L Potassium Phosphate (K-Phos Original) 2,000 mg PO Q4H PRN PRN Reason: Phosphorus Less Than 2.5 mg/dL Potassium Phosphate (K-Phos Original) 2,000 mg PO UNSCH PRN PRN Reason: SEE LABEL COMMENTS Senna/Docusate Sodium (Linda-Colace) 1 tab PO BID [facility] Last Admin: 04/27/18 08:43 Dose: Not Given Sennosides (Senokot) 17.2 mg PO Q12H PRN PRN Reason: Moderate Constipation Sodium Chloride (Ns Flush) 2 ml IV.FLUSH BID NOY Last Admin: 04/27/18 09:01 Dose: 2 ml Sodium Chloride (Ns Flush) 2 ml IV.FLUSH PRN PRN PRN Reason: FLUSH AFTER USING IV ACCESS Allergies/Adverse Reactions: Allergies Allergy/AdvReac Type Severity Reaction Status Date / Time asparagus Allergy Severe HIVES Unverified 09/12/17 10:54 carbamazepine Allergy Severe Unverified 09/12/17 10:54 coconut Allergy Severe HIVES Unverified 09/12/17 10:54 divalproex sodium Allergy Severe SWELLING Unverified 09/12/17 10:54 melon Allergy Severe HIVES Unverified 09/12/17 10:54 phenytoin Allergy Severe Rash/SWELLI Unverified 09/12/17 10:54 NG ziprasidone Allergy Severe Unverified 09/12/17 10:54 phenobarbital Allergy Unknown Unverified 09/12/17 10:54 OKRA Allergy Severe HIVES Uncoded 12/16/09 12:52 Review of Systems unobtainable due to endotracheal tube, unobtainable due to mental status Physical Exam Vital signs: Vital Signs 04/26/18 11:00 04/26/18 11:43 04/26/18 12:00 Temperature Pulse Rate 54 L Respiratory Rate 15 15 Blood Pressure 118/74 121/77 Pulse Oximetry 100 100 04/26/18 16:00 04/26/18 16:12 04/26/18 17:00 Temperature 98.5 F Pulse Rate 69 Respiratory Rate 15 16 Blood Pressure 137/89 Pulse Oximetry 100 04/26/18 18:00 04/26/18 18:30 04/26/18 19:00 Temperature Pulse Rate 80 68 73 Respiratory Rate 13 11 L 14 Blood Pressure 140/87 126/77 131/82 Pulse Oximetry 100 100 100 04/26/18 19:30 04/26/18 20:00 04/26/18 20:31 Temperature 101.3 F H Pulse Rate 71 80 98 H Respiratory Rate 0 L 3 L 17 Blood Pressure 129/78 138/84 147/102 H Pulse Oximetry 100 100 100 04/26/18 21:00 04/26/18 21:28 04/26/18 21:30 Temperature Pulse Rate 72 74 Respiratory Rate 17 17 18 Blood Pressure 131/75 122/69 Pulse Oximetry 100 100 100 04/26/18 22:00 04/26/18 22:30 04/26/18 23:00 Temperature Pulse Rate 78 74 68 Respiratory Rate 17 16 17 Blood Pressure 113/61 111/59 L 112/59 L Pulse Oximetry 100 99 99 04/26/18 23:30 04/27/18 00:00 04/27/18 00:30 Temperature 98.6 F Pulse Rate 67 60 57 L Respiratory Rate 14 15 15 Blood Pressure 119/79 110/73 111/68 Pulse Oximetry 100 100 100 04/27/18 00:46 04/27/18 01:00 04/27/18 01:30 Temperature Pulse Rate 54 L 53 L Respiratory Rate 15 14 13 Blood Pressure 113/74 111/72 Pulse Oximetry 100 100 100 04/27/18 02:00 04/27/18 02:30 04/27/18 03:00 Temperature Pulse Rate 53 L 57 L 55 L Respiratory Rate 13 13 12 Blood Pressure 115/78 117/85 114/74 Pulse Oximetry 100 100 100 04/27/18 03:30 04/27/18 04:00 04/27/18 04:08 Temperature 98.3 F Pulse Rate 56 L 54 L Respiratory Rate 15 15 15 Blood Pressure 122/82 116/80 Pulse Oximetry 100 100 100 04/27/18 04:30 04/27/18 05:00 04/27/18 05:45 Temperature Pulse Rate 58 L 58 L 66 Respiratory Rate 15 0 L 15 Blood Pressure 123/83 138/93 H 152/100 H Pulse Oximetry 100 100 100 04/27/18 06:00 04/27/18 07:47 04/27/18 09:59 Temperature Pulse Rate 68 Respiratory Rate 15 14 14 Blood Pressure Pulse Oximetry 100 100 100 Intake & Output 04/26/18 04/27/18 04/27/18 18:59 06:59 18:59 Intake Total 1350 / 1350 1959 / 1959 Output Total 1999 1300 / 1300 Balance -650 / -650 660 / 660 Intake: IV 1350 / 1350 1929 Versed Inj 50 mg In 50 ml @ 2 50 / 50 50 / 50 MG/HR 2 mls/hr IV.CONT TITRATE PRN Rx#:[id number] Diprivan 1000 mg/100 ml Inj 1, 300 / 300 200 / 200 000 mg In 100 ml @ 5 MCG/KG/MIN 2.858 mls/hr IV.CONT TITRATE PRN Rx#:[id number] NS Inj 1,000 ML @ 84 mls/hr IV. 1000 / 1000 1000 / 1000 CONT .[id number] [facility] Rx#:[id number] Vimpat Inj 150 MG In NS Inj 100 115 / 115 ML @ 115 mls/hr IV.SIG Q12HR NOY Rx#:[id number] KCl 20 mEq Premix Inj 20 meq In 100 / 100 100 ml @ 50 mls/hr IV.SIG Q2H PRN Rx#:[id number] Potassium Phosphate Inj 30 MMOL 260 / 260 In NS Inj 250 ML @ 43.333 mls/ hr IV.SIG ONCE ONE Rx#:[id number] Keppra 1000 mg/100 mL Premix 100 / 100 100 ML @ 400 mls/hr IV.SIG Q12H [facility] Rx#:[id number] Keppra Inj 500 MG In NS Inj 100 105 / 105 ML @ 400 mls/hr IV.SIG Q12H [facility] Rx#:[id number] Oral 0 / 0 0 / 0 Oral Supplement 0 / 0 30 / 30 Output: Urine 1999 / 1999 Urine Amount (Catheter) 1300 / 1300 Indwelling Urethral Catheter 1300 / 1300 Narrative: Intubated on sedation. Somnolent grimaces appears withdrawn all extremities cuffs in place guards at bedside - Constitutional no acute distress - Routine HEENT Exam Head: Present: normocephalic - Urinary Catheter Management Indwelling Urethral Catheter Cath placed during this visit: yes Reason for continuing: Hourly intake/output Insertion date: 04/26/18 Insertion time: 05:30 Objective Laboratory Results - last 24 hr 04/26/18 04/26/18 04/26/18 09:50 13:54 16:50 WBC RBC Hgb Hct MCV MCH MCHC RDW Plt Count MPV Neut % (Auto) Lymph % (Auto) Burt % (Auto) Eos % (Auto) Baso % (Auto) Neut # (Auto) Lymph # (Auto) Burt # (Auto) Eos # (Auto) Baso # (Auto) WBC Differential Differential Comment Sodium Potassium Chloride Carbon Dioxide Anion Gap BUN Creatinine Estimated GFR POC Glucose 78 Random Glucose Calcium Phosphorus Magnesium Total Bilirubin AST ALT Alkaline Phosphatase Total Creatine Kinase 307 Troponin I Less than 0.02 L Less than 0.02 L Total Protein Albumin 04/26/18 04/26/18 04/27/18 18:30 23:45 04:17 WBC RBC Hgb Hct MCV MCH MCHC RDW Plt Count MPV Neut % (Auto) Lymph % (Auto) Burt % (Auto) Eos % (Auto) Baso % (Auto) Neut # (Auto) Lymph # (Auto) Burt # (Auto) Eos # (Auto) Baso # (Auto) WBC Differential Differential Comment Sodium 145 Potassium 4.4 D Chloride 114 H Carbon Dioxide 20.3 L Anion Gap 11 BUN 7 Creatinine 0.74 Estimated GFR Greater than 89 POC Glucose 62 L 87 Random Glucose 84 Calcium 8.6 Phosphorus 3.3 D Magnesium 2.0 Total Bilirubin 0.7 AST 42 H ALT 27 Alkaline Phosphatase 58 Total Creatine Kinase Troponin I Total Protein 6.8 Albumin 3.5 04/27/18 04/27/18 05:04 08:04 WBC 10.8 RBC 4.56 Hgb 14.2 Hct 41.5 MCV 91.1 MCH 31.1 MCHC 34.1 RDW 13.6 Plt Count 176 MPV 7.8 Neut % (Auto) 72.9 H Lymph % (Auto) 15.5 Burt % (Auto) 10.0 H Eos % (Auto) 1.1 Baso % (Auto) 0.5 Neut # (Auto) 7.9 H Lymph # (Auto) 1.7 Burt # (Auto) 1.1 H Eos # (Auto) 0.1 Baso # (Auto) 0.1 WBC Differential . Differential Comment Auto diff final Sodium Potassium Chloride Carbon Dioxide Anion Gap BUN Creatinine Estimated GFR POC Glucose 71 Random Glucose Calcium Phosphorus Magnesium Total Bilirubin AST ALT Alkaline Phosphatase Total Creatine Kinase Troponin I Total Protein Albumin Review/Management - Diagnosis (1) Seizure Code(s): R56.9 - Unspecified convulsions Status: Acute Current Visit: Yes (2) Status epilepticus Code(s): G40.901 - Epilepsy, unspecified, not intractable, with status epilepticus Status: Acute Current Visit: Yes - Review/Management Plan: On sedation. On IV Keppra and IV Vimpat EEG being performed Continue current management Extubation planning per lead level designer
[2018-04-27] MEDS: Dextrose 5%/NaCl 0.9% Inj 1,000 ML IV.CONT SCH (12:39)
[2018-04-28] MEDS: Dextrose 5%/NaCl 0.9% Inj 1,000 ML IV.CONT SCH ×2 (00:48→13:11)
[2018-04-28] MEDS: Oral Hygiene Kit OROPHARYNG SCH ×5 (00:49→23:23)
[2018-04-28] MEDS: Insulin NovoLOG Aspart Correctional Sugar Inj SQ SCH ×5 (00:54→23:26)
--- NOTE | 2018-04-28 03:50 | XR ---
EXAM DATE: 04/28/2018 3:48 AM EDT AGE/SEX: 33 years / Male INDICATIONS: Shortness of breath, possible pulmonary disease. CLINICAL DATA: This is the patient's subsequent encounter. Patient reports that signs and symptoms h ave been present for 3 days and indicates a pain score of Nonresponsive. MEDICAL/SURGICAL HISTORY: Cardiovascular disease. Seizures. PE. None. COMPARISON: [facility] [place], CHEST 1V SINGLE AP, 04/26/2018. . FINDINGS: Mild parenchymal consolidation seen left base, worse than 2 days ago. No perceptible effusion. No pne umothorax. Heart size stable, within normal limits. Endotracheal tube and nasogastric tube have been removed. CONCLUSION: 1. Mild left base consolidation developing. 2. Interim extubation and nasogastric tube removal. Electronically signed by: Evin Burks MD 04/28/2018 3:49 AM EDT
[2018-04-28 04:48] LABS: Baso % (Auto) 0.6 % (0.0-2.0); Eos # (Auto) 0.1 th/mm3 (0.0-0.4); Eos % (Auto) 1.5 % (0.0-4.0); Hematocrit 36.9 % (39.0-51.0); Hemoglobin 12.8 gm/dL (13.0-17.0); Lymph # (Auto) 1.9 th/mm3 (1.0-4.8); Lymph % (Auto) 23.6 % (9.0-44.0); Mean Corpuscular HGB Conc 34.7 % (32.0-36.0); Mean Corpuscular Hemoglobin 30.9 pg (27.0-34.0); Mean Corpuscular Volume 89.2 fL (80.0-100.0); Mean Platelet Volume 8.2 fL (7.0-11.0); Mono # (Auto) 0.7 th/mm3 (0.0-0.9); Mono % (Auto) 8.3 % (0.0-8.0); Neut # (Auto) 5.3 th/mm3 (1.8-7.7); Platelet Count 170 th/mm3 (150-450); Red Blood Count 4.14 mil/mm3 (4.50-5.90); Red Cell Distribution Width 13.2 % (11.6-17.2)
[2018-04-28] MEDS: Heparin - SQ 10,000 UNITS/ML Vial SQ SCH ×2 (05:14→18:22)
[2018-04-28 05:15] LABS: Alanine Aminotransferase 23 U/L (12-78); Albumin 3.4 g/dL (3.4-5.0); Alkaline Phosphatase 55 U/L (45-117); Anion Gap 8 meq/L (5-15); Aspartate Aminotransferase 26 U/L (15-37); Blood Urea Nitrogen 6 mg/dL (7-18); Carbon Dioxide 25.1 meq/L (21.0-32.0); Chloride 111 meq/L (98-107); Glomerular Filtration Rate Greater Than 89 mL/min (>89); Glucose,Random 92 mg/dL (74-106); Magnesium 1.6 mg/dL (1.5-2.5); Phosphorus 2.7 mg/dL (2.5-4.9); Potassium 3.1 meq/L (3.5-5.1); Sodium 144 meq/L (136-145); Total Protein 6.5 g/dL (6.4-8.2)
[2018-04-28] MEDS: Chlorhexidine Gluconate 2% 1 Pack (2 Cloths) TOPICAL SCH (05:15)
[2018-04-28] MEDS: Chlorhexidine 0.12% Oral Kit 15 ML UDC OROPHARYNG SCH ×2 (07:43→22:04)
[2018-04-28] MEDS: LACOSAMIDE IV.SIG SCH ×2 (10:00→20:39)
[2018-04-28] MEDS: Pantoprazole Inj 40 MG Vial IV.PUSH SCH (10:00)
[2018-04-28] MEDS: Senna/Docusate Sodium 8.6/50 MG Tablet PO SCH ×2 (10:00→22:06)
[2018-04-28] MEDS: SODIUM CHLOR 0.9% IV.SIG SCH ×2 (10:00→20:39)
--- NOTE | 2018-04-28 10:06 | MG ---
cc: Yunier Santana MD EEG RECORD: IMPRESSION: Theta and delta frequency of 20-50 microvolts occurring. Reasonably good EEG variability reactivity. Limited driving with photic stimulation. movement and myogenic artifact. Single lead EKG showing sinus rhythm. INTERPRETATION: Moderate encephalopathy. No seizure activity. Clinical correlation. MD LOGAN Eaton/cole/ , 08:12 AM , 08:17 AM
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
[2018-04-28] MEDS ORDERED: Magnesium Sulfate Inj 4 GM in Dextrose 5% in Water Inj 100 ML IV.SIG ONE ×2 (14:00)
--- NOTE | 2018-04-28 15:23 | P.PNNEU ---
Subjective Subjective Comments: no cp, no dyspnea, no ramos, no focal weakness, no vision loss, no seizures Active Medications: Active Medications Acetaminophen (Tylenol) 650 mg PO Q6H PRN PRN Reason: FOR FEVER >101F Last Admin: 04/26/18 20:02 Dose: 650 mg Hydrocodone Bitart/Acetaminophen ([place] 5/325) 1 tab PO Q4H PRN PRN Reason: PAIN SCALE 1 TO 5 Last Admin: 04/28/18 05:38 Dose: 1 tab Al Hydroxide/Mg Hydroxide (Milk Of [place]) 30 ml PO Q12H PRN PRN Reason: Mild Constipation Albuterol (Albuterol Neb (Prn)) 2.5 mg NEB Q2HR NEB PRN PRN Reason: SHORTNESS OF BREATH/WHEEZING Bisacodyl (Dulcolax Supp) 10 mg RECTAL DAILY PRN PRN Reason: SEVERE CONSITIPATION Chlorhexidine Gluconate (Chlorhexidine 2% Cloth) 3 pack TOPICAL DAILY@0400 [facility] Stop: 05/01/18 03:59 Last Admin: 04/28/18 05:15 Dose: 3 pack Chlorhexidine Gluconate (Chlorhexidine 2% Cloth) 3 pack TOPICAL DAILY@0400 PRN PRN Reason: Extra cloth needed Stop: 05/01/18 03:59 Chlorhexidine Gluconate (Peridex 0.12% Oral Kit) 15 ml OROPHARYNG BID@0800, 2000 [facility] Last Admin: 04/28/18 07:43 Dose: Not Given Dextrose (D50w Vial) 50 ml IV.PUSH UNSCH PRN PRN Reason: PER HYPOGLYCEMIA PROTOCOL Glucagon (Glucagon Inj) 1 mg OTHER PRN PRN PRN Reason: for Hypoglycemia Protocol Heparin Sodium (Porcine) (Heparin Inj) 5,000 units SQ Q12H [facility] Last Admin: 04/28/18 05:14 Dose: 5,000 units Hydralazine HCl (Apresoline Inj) 10 mg IV.PUSH Q1H PRN PRN Reason: SBP>160, DBP>90 Magnesium Sulfate 4 gm/ Sodium (Chloride) 100 mls @ 50 mls/hr IV.SIG UNSCH PRN PRN Reason: For Magnesium 0.9 - 1.1 mg/dL Magnesium Sulfate 2 gm/ Sodium (Chloride) 100 mls @ 50 mls/hr IV.SIG UNSCH PRN PRN Reason: For Magnesium 1.2 - 1.6 mg/dL Potassium Chloride (Kcl 40 Meq Premix Inj) 40 meq in 100 mls @ 25 mls/hr IV.SIG Q2H PRN PRN Reason: For Potassium 2.8 - 3.2 mEq/L Potassium Chloride (Kcl 20 Meq Premix Inj) 20 meq in 100 mls @ 50 mls/hr IV.SIG Q2H PRN PRN Reason: For Potassium 3.3 - 3.5 mEq/L Last Infusion: 04/26/18 20:23 Dose: Infused Potassium Chloride (Kcl 40 Meq Premix Inj) 40 meq in 100 mls @ 25 mls/hr IV.SIG UNSCH PRN PRN Reason: For Potassium 3.3 - 3.5 mEq/L Potassium Chloride (Kcl 20 Meq Premix Inj) 20 meq in 100 mls @ 50 mls/hr IV.SIG Q2H PRN PRN Reason: For Potassium 2.8 - 3.2 mEq/L Potassium Phosphate 30 mmol/ (Sodium Chloride) 260 mls @ 42 mls/hr IV.SIG UNSCH PRN PRN Reason: SEE LABEL COMMENTS Sodium Phosphate 30 mmol/ (Sodium Chloride) 260 mls @ 42 mls/hr IV.SIG UNSCH PRN PRN Reason: For Phosphorus < 2.5 mg/dL Dexmedetomidine HCl 200 mcg/ (Sodium Chloride) 50 mls @ 4.76 mls/hr IV.CONT TITRATE PRN; Protocol PRN Reason: Per Protocol Levetiracetam 500 mg/ Sodium (Chloride) 105 mls @ 400 mls/hr IV.SIG Q12H NOY Last Infusion: 04/28/18 11:31 Dose: Infused Lacosamide 150 mg/ Sodium (Chloride) 115 mls @ 115 mls/hr IV.SIG Q12HR NOY Last Infusion: 04/28/18 11:15 Dose: Infused Magnesium Sulfate 4 gm/ (Dextrose) 108 mls @ 25 mls/hr IV.SIG ONCE ONE Stop: 04/28/18 18:19 Last Admin: 04/28/18 13:41 Dose: 25 mls/hr Insulin Aspart (Novolog Insulin Correctional Sugar Inj) 0 unit SQ Q6HR NOY; Protocol Last Admin: 04/28/18 06:34 Dose: Not Given Labetalol HCl (Trandate Inj) 10 mg IV.PUSH Q1H PRN PRN Reason: Sbp>160, Dbp>90, Hr>65 Lactulose (Lactulose Liq) 30 ml PO DAILY PRN PRN Reason: SEVERE CONSITIPATION Lorazepam (Ativan Inj) 2 mg IV.PUSH Q2H PRN PRN Reason: SEIZURES Magnesium Oxide (Mag-Ox) 800 mg PO UNSCH PRN PRN Reason: For Magnesium 1.2 - 1.6 mg/dL Miscellaneous Medication () 1 each OROPHARYNG 0000,0400,1200,1600 [facility] Last Admin: 04/28/18 11:31 Dose: Not Given Morphine Sulfate (Morphine Inj) 2 mg IV.PUSH Q2H PRN PRN Reason: PAIN SCALE 6 TO 10 Nitroglycerin (Nitro-Bid 2% Oint) 2 inch TOPICAL Q6HR PRN PRN Reason: SBP>160, DBP>90 Ondansetron HCl (Zofran Inj) 4 mg IV.PUSH Q6H PRN PRN Reason: NAUSEA OR VOMITING Pantoprazole Sodium (Protonix Inj) 40 mg IV.PUSH DAILY [facility] Last Admin: 04/28/18 10:00 Dose: 40 mg Potassium Bicarb/Potassium Chloride (K-Lyte Cl Eff) 50 meq PO UNSCH PRN PRN Reason: For Potassium 3.3 - 3.5 mEq/L Potassium Chloride (K-Dur) 40 meq PO BID [facility] Last Admin: 04/28/18 13:17 Dose: 40 meq Potassium Phosphate (K-Phos Original) 2,000 mg PO Q4H PRN PRN Reason: Phosphorus Less Than 2.5 mg/dL Potassium Phosphate (K-Phos Original) 2,000 mg PO UNSCH PRN PRN Reason: SEE LABEL COMMENTS Senna/Docusate Sodium (Linda-Colace) 1 tab PO BID [facility] Last Admin: 04/28/18 10:00 Dose: 1 tab Sennosides (Senokot) 17.2 mg PO Q12H PRN PRN Reason: Moderate Constipation Sodium Chloride (Ns Flush) 2 ml IV.FLUSH BID [facility] Last Admin: 04/28/18 09:59 Dose: 2 ml Sodium Chloride (Ns Flush) 2 ml IV.FLUSH PRN PRN PRN Reason: FLUSH AFTER USING IV ACCESS Allergies/Adverse Reactions: Allergies Allergy/AdvReac Type Severity Reaction Status Date / Time asparagus Allergy Severe HIVES Unverified 09/12/17 10:54 carbamazepine Allergy Severe Unverified 09/12/17 10:54 coconut Allergy Severe HIVES Unverified 09/12/17 10:54 divalproex sodium Allergy Severe SWELLING Unverified 09/12/17 10:54 melon Allergy Severe HIVES Unverified 09/12/17 10:54 phenytoin Allergy Severe Rash/SWELLI Unverified 09/12/17 10:54 NG ziprasidone Allergy Severe Unverified 09/12/17 10:54 phenobarbital Allergy Unknown Unverified 09/12/17 10:54 OKRA Allergy Severe HIVES Uncoded 12/16/09 12:52 Review of Systems All other systems reviewed negative except as stated in HPI Physical Exam Vital signs: Vital Signs 04/27/18 15:30 04/27/18 16:00 04/27/18 16:30 Temperature Pulse Rate 86 80 92 H Respiratory Rate 13 17 19 Blood Pressure 116/63 124/68 135/60 Pulse Oximetry 98 100 98 04/27/18 17:00 04/27/18 17:01 04/27/18 17:30 Temperature 98.6 F Pulse Rate 91 H 96 H 90 Respiratory Rate 20 25 H 16 Blood Pressure 134/76 134/71 Pulse Oximetry 99 98 98 04/27/18 18:00 04/27/18 19:00 04/27/18 19:30 Temperature Pulse Rate 89 90 86 Respiratory Rate 12 26 H 18 Blood Pressure 118/63 147/86 H 128/68 Pulse Oximetry 95 87 L 04/27/18 19:58 04/27/18 20:00 04/27/18 20:15 Temperature 98.0 F Pulse Rate 90 87 Respiratory Rate 12 Blood Pressure 129/64 Pulse Oximetry 99 98 04/27/18 20:30 04/27/18 21:00 04/27/18 21:31 Temperature Pulse Rate 85 76 76 Respiratory Rate 11 L 16 16 Blood Pressure 134/66 153/70 H 108/57 L Pulse Oximetry 04/27/18 22:00 04/27/18 22:30 04/27/18 23:00 Temperature Pulse Rate 80 74 76 Respiratory Rate 16 15 17 Blood Pressure 116/57 L 120/58 L Pulse Oximetry 04/27/18 23:01 04/27/18 23:30 04/28/18 00:00 Temperature 99.3 F Pulse Rate 70 71 67 Respiratory Rate 12 14 16 Blood Pressure 121/57 L 128/56 L 98/54 L Pulse Oximetry 04/28/18 00:30 04/28/18 01:00 04/28/18 01:31 Temperature Pulse Rate 71 69 79 Respiratory Rate 16 13 23 Blood Pressure 101/58 L 96/50 L 122/70 Pulse Oximetry 04/28/18 02:00 04/28/18 02:30 04/28/18 03:00 Temperature Pulse Rate 68 65 70 Respiratory Rate 15 15 16 Blood Pressure 105/56 L 122/63 111/62 Pulse Oximetry 04/28/18 03:30 04/28/18 04:00 04/28/18 04:30 Temperature 99.3 F Pulse Rate 70 74 71 Respiratory Rate 1 L 16 17 Blood Pressure 104/55 L 109/54 L 100/53 L Pulse Oximetry 04/28/18 05:00 04/28/18 05:31 04/28/18 06:00 Temperature Pulse Rate 71 77 72 Respiratory Rate 10 L 13 11 L Blood Pressure 110/57 L 123/64 114/65 Pulse Oximetry 96 04/28/18 06:15 04/28/18 07:00 04/28/18 08:00 Temperature 98.5 F Pulse Rate 79 83 Respiratory Rate 16 18 19 Blood Pressure 101/61 127/72 Pulse Oximetry 98 04/28/18 09:00 04/28/18 10:00 04/28/18 11:00 Temperature Pulse Rate 74 79 82 Respiratory Rate 15 18 14 Blood Pressure 122/70 124/83 114/68 Pulse Oximetry 98 99 04/28/18 12:00 04/28/18 13:00 Temperature Pulse Rate 74 74 Respiratory Rate 17 18 Blood Pressure 120/70 120/73 Pulse Oximetry 99 98 Intake & Output 04/27/18 04/28/18 04/28/18 18:59 06:59 18:59 Intake Total 1320 / 1320 1480 / 1480 1440 / 1440 Output Total 2625 / 2625 700 / 700 Balance -1305 / -1305 780 / 780 1440 / 1440 Intake: IV 1320 / 1320 1000 / 1000 1440 / 1440 D5W/Normal Saline Inj 1,000 ML 1000 / 1000 1000 / 1000 @ 84 mls/hr IV.CONT .[id number] [facility] Rx#:[id number] Versed Inj 50 mg In 50 ml @ 2 30 / 30 MG/HR 2 mls/hr IV.CONT TITRATE PRN Rx#:[id number] Diprivan 1000 mg/100 ml Inj 1, 70 / 70 000 mg In 100 ml @ 5 MCG/KG/MIN 2.858 mls/hr IV.CONT TITRATE PRN Rx#:[id number] NS Inj 1,000 ML @ 84 mls/hr IV. 1000 / 1000 CONT .[id number] NO[facility] Rx#:[id number] Vimpat Inj 150 MG In NS Inj 100 115 / 115 230 / 230 ML @ 115 mls/hr IV.SIG Q12HR [facility] Rx#:[id number] Keppra Inj 500 MG In NS Inj 100 105 / 105 210 / 210 ML @ 400 mls/hr IV.SIG Q12H [facility] Rx#:[id number] Oral 480 / 480 Output: Urine 700 / 700 Urine Amount (Catheter) 2625 / 2625 Indwelling Urethral Catheter 2625 / 2625 Other: # Voids 2 Narrative: Extubated awake alert oriented 3 no aphasia, follows, extra ocular movements intact no facial asymmetry tongue midline concrete batcher symmetric able raise all 4 extremity gravity - Constitutional no acute distress - Routine HEENT Exam Head: Present: normocephalic - Urinary Catheter Management Indwelling Urethral Catheter Cath placed during this visit: yes, but has since been removed by the nurse Reason for continuing: Decision to DC catheter Insertion date: 04/26/18 Insertion time: 05:30 Removal date: 04/27/18 Removal time: 18:15 Objective Laboratory Results - last 24 hr 04/27/18 04/28/18 04/28/18 17:46 00:52 04:16 WBC 8.0 RBC 4.14 L Hgb 12.8 L Hct 36.9 L MCV 89.2 MCH 30.9 MCHC 34.7 RDW 13.2 Plt Count 170 MPV 8.2 Neut % (Auto) 66.0 Lymph % (Auto) 23.6 [place] % (Auto) 8.3 H Eos % (Auto) 1.5 Baso % (Auto) 0.6 Neut # (Auto) 5.3 Lymph # (Auto) 1.9 [place] # (Auto) 0.7 Eos # (Auto) 0.1 Baso # (Auto) 0.0 WBC Differential . Differential Comment Auto diff final Sodium Potassium Chloride Carbon Dioxide Anion Gap BUN Creatinine Estimated GFR POC Glucose 91 93 Random Glucose Calcium Phosphorus Magnesium Total Bilirubin AST ALT Alkaline Phosphatase Ammonia Total Protein Albumin 04/28/18 04/28/18 04/28/18 04:16 04:16 05:18 WBC RBC Hgb Hct MCV MCH MCHC RDW Plt Count MPV Neut % (Auto) Lymph % (Auto) [place] % (Auto) Eos % (Auto) Baso % (Auto) Neut # (Auto) Lymph # (Auto) [place] # (Auto) Eos # (Auto) Baso # (Auto) WBC Differential Differential Comment Sodium 144 Potassium 3.1 L D Chloride 111 H Carbon Dioxide 25.1 Anion Gap 8 BUN 6 L Creatinine 0.82 Estimated GFR Greater than 89 POC Glucose 99 Random Glucose 92 Calcium 8.0 L Phosphorus 2.7 Magnesium 1.6 Total Bilirubin 1.0 AST 26 ALT 23 Alkaline Phosphatase 55 Ammonia 44 H Total Protein 6.5 Albumin 3.4 Microbiology 04/26/18 21:39 Gram Stain - Final Sputum - Endotracheal Sputum Culture - Preliminary Moderate growth normal respiratory armando at 24 hours Review/Management - Diagnosis (1) Seizure Code(s): R56.9 - Unspecified convulsions Status: Acute Current Visit: Yes (2) Status epilepticus Code(s): G40.901 - Epilepsy, unspecified, not intractable, with status epilepticus Status: Acute Current Visit: Yes - Review/Management Plan: EEG no seizure activity Continue Kate Carvajal to follow
[2018-04-29] MEDS: Chlorhexidine Gluconate 2% 1 Pack (2 Cloths) TOPICAL SCH (05:26)
[2018-04-29] MEDS: Oral Hygiene Kit OROPHARYNG SCH ×2 (05:27→13:19)
[2018-04-29] MEDS: Heparin - SQ 10,000 UNITS/ML Vial SQ SCH (05:48)
[2018-04-29] MEDS: Insulin NovoLOG Aspart Correctional Sugar Inj SQ SCH ×2 (05:58→13:19)
[2018-04-29 06:12] LABS: Baso % (Auto) 0.9 % (0.0-2.0); Eos # (Auto) 0.2 th/mm3 (0.0-0.4); Eos % (Auto) 3.6 % (0.0-4.0); Hematocrit 38.4 % (39.0-51.0); Hemoglobin 13.2 gm/dL (13.0-17.0); Lymph # (Auto) 2.3 th/mm3 (1.0-4.8); Lymph % (Auto) 44.4 % (9.0-44.0); Mean Corpuscular HGB Conc 34.3 % (32.0-36.0); Mean Corpuscular Volume 90.3 fL (80.0-100.0); Mean Platelet Volume 8.2 fL (7.0-11.0); Mono # (Auto) 0.5 th/mm3 (0.0-0.9); Mono % (Auto) 9.5 % (0.0-8.0); Neut # (Auto) 2.1 th/mm3 (1.8-7.7); Neut % (Auto) 41.6 % (16.0-70.0); Platelet Count 179 th/mm3 (150-450); Red Blood Count 4.26 mil/mm3 (4.50-5.90); Red Cell Distribution Width 13.7 % (11.6-17.2); White Blood Count 5.1 th/mm3 (4.0-11.0)
[2018-04-29 06:31] LABS: Calcium 8.8 mg/dL (8.5-10.1); Carbon Dioxide 25.7 meq/L (21.0-32.0); Magnesium 2.2 mg/dL (1.5-2.5); Phosphorus 4.2 mg/dL (2.5-4.9); Potassium 4.1 meq/L (3.5-5.1)
[2018-04-29] MEDS: Pantoprazole Inj 40 MG Vial IV.PUSH SCH (08:31)
[2018-04-29] MEDS: Senna/Docusate Sodium 8.6/50 MG Tablet PO SCH (08:32)
[2018-04-29 08:45] VITALS: RESP 16; TEMP 98
[2018-04-29 09:00] VITALS: O2SAT 98
[2018-04-29] MEDS: SODIUM CHLOR 0.9% IV.SIG SCH (09:39)
[2018-04-29] MEDS: LACOSAMIDE IV.SIG SCH (09:39)
[2018-04-29] MEDS: Chlorhexidine 0.12% Oral Kit 15 ML UDC OROPHARYNG SCH (11:07)
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
--- NOTE | 2018-04-29 13:01 | P.DS ---
Date of admission: 04/25/18 13:11 Primary care physician: No Primary Care Physician Attending physician on discharge: Sergo Sampson Anticipated date of discharge: 04/29/18 Brief History from admission: This is a 33-year-old male. Date of admission 04/25/2018. Past medical history includes seizure disorder and current incarceration. Patient is also on antidepressant. Today, this patient presents to the emergency apartment at [facility] via EMS for seizure. In reviewing the medical record, the patient has a history of seizure disorders and is currently on levetiracetam 750 mg twice daily. The patient is allergic to phenytoin, valproic acid, and phenobarbital. Today, this patient was transferred from the retirement to the [facility] for a hearing when he suffered a witnessed tonic/clonic seizure. Blood sugar was 80s. Patient was tachycardic. Back if it was striking ground. Patient received 6 mg midazolam intravenously prior to arriving to [facility]. Baseline laboratories revealed no acute findings with a normal BMP and CBC. CT brain essentially normal. Patient received 1 g levetiracetam a total of 12 additional milligrams of lorazepam intravenous for seizure-like activity here in the emergency department. Neurology was notified. Recommended glucosamine 100 mg IV 1. Stat EEG and MRI of brain is pending. Last MRI of brain 2009 revealed essentially no acute intracranial findings. Urine drug screen, TSH and prolactin all pending. Patient update on day of discharge: This is a 33-year-old male. Date of admission 04/25/2018. Past medical history includes seizure disorder and current incarceration. Patient is also on antidepressant. Today, this patient presents to the emergency apartment at [facility] via EMS for seizure. In reviewing the medical record, the patient has a history of seizure disorders and is currently on levetiracetam 750 mg twice daily. The patient is allergic to phenytoin, valproic acid, and phenobarbital. Today, this patient was transferred from the retirement to the [facility] for a hearing when he suffered a witnessed tonic/clonic seizure. Blood sugar was 80s. Patient was tachycardic. Back if it was striking ground. Patient received 6 mg midazolam intravenously prior to arriving to [facility]. Baseline laboratories revealed no acute findings with a normal BMP and CBC. CT brain essentially normal. Patient received 1 g levetiracetam a total of 12 additional milligrams of lorazepam intravenous for seizure-like activity here in the emergency department. Neurology was notified. Recommended glucosamine 100 mg IV 1. Stat EEG and MRI of brain is pending. Last MRI of brain 2009 revealed essentially no acute intracranial findings. Urine drug screen, TSH and prolactin all pending. 04/26: MRI brain revealed no acute intracranial findings. EEG unremarkable. Currently on midazolam drip along with levetiracetam and lacosamide. No obvious source of seizure activity. 04/27: Patient with similar activity when attempting to wean off sedation yesterday. Will attempt again today. EEG did not reveal any focal sharp activity. 04/28: Extubated yesterday without complications. Complains of being "groggy". Advance as tolerated. Replacing potassium and magnesium electrolytes currently. 04-29can be discharged to home NO MORE SEIZURE ACTIVITY CAN GO BACK TO CUSTODIAL/[facility] MAY SHOWER TRANSFERRED TO OUR SERVICE TODAY DS: Diagnosis - Discharge Diagnosis (1) Seizure Status: Acute (2) Status epilepticus Status: Acute DS: Medications - Discharge Medications Prescriptions: hydrocodone-acetaminophen 1 tab PO Q4H PRN #18 tab PRN Reason: Pain lacosamide [Vimpat] 150 mg PO BID #60 tab levetiracetam [Keppra] 750 mg PO Q12H #60 tab sennosides-docusate sodium [Senna Plus] 2 tab PO BID #120 tab DS: Summary Hospital Course: This is a 33-year-old male. Date of admission 04/25/2018. Past medical history includes seizure disorder and current incarceration. Patient is also on antidepressant. Today, this patient presents to the emergency apartment at [facility] via EMS for seizure. In reviewing the medical record, the patient has a history of seizure disorders and is currently on levetiracetam 750 mg twice daily. The patient is allergic to phenytoin, valproic acid, and phenobarbital. Today, this patient was [facility] when he suffered a witnessed tonic/clonic seizure. Blood sugar was 80s. Patient was tachycardic. Back if it was striking ground. Patient received 6 mg midazolam intravenously prior to arriving to [facility]. Baseline laboratories revealed no acute findings with a normal BMP and CBC. CT brain essentially normal. Patient received 1 g levetiracetam a total of 12 additional milligrams of lorazepam intravenous for seizure-like activity here in the emergency department. Neurology was notified. Recommended glucosamine 100 mg IV 1. Stat EEG and MRI of brain is pending. Last MRI of brain 2009 revealed essentially no acute intracranial findings. Urine drug screen, TSH and prolactin all pending. 04/26: MRI brain revealed no acute intracranial findings. EEG unremarkable. Currently on midazolam drip along with levetiracetam and lacosamide. No obvious source of seizure activity. 04/27: Patient with similar activity when attempting to wean off sedation yesterday. Will attempt again today. EEG did not reveal any focal sharp activity. 04/28: Extubated yesterday without complications. Complains of being "groggy". Advance as tolerated. Replacing potassium and magnesium electrolytes currently. 04-29can be discharged to home NO MORE SEIZURE ACTIVITY CAN GO BACK TO CUSTODIAL/[facility] MAY SHOWER TRANSFERRED TO OUR SERVICE TODAY [employer] Prescription Drug Monitoring Database has been queried and verified prior to prescribing the controlled substance. Acute pain exception. This patient has normal, predicted, physiological, and time limited response to an adverse mechanical stimulus associated with surgery, trauma, or acute illness as described in my notes. There is a lack of alternative treatment options other than to include the prescribed narcotic treatment for this condition. On the website. We will give him prescriptions for acute pain only see rx - Time Spent with Patient Total time spent providing and/or coordinating discharge services: Less than 30 minutes - Quality: VTE Deep Vein Thrombosis/Pulmonary Embolism Present on Admission: No Exam Vital signs: Vital Signs 04/28/18 13:00 04/28/18 14:00 04/28/18 15:00 Temperature Pulse Rate 74 73 74 Respiratory Rate 18 16 18 Blood Pressure 120/73 121/72 113/70 Pulse Oximetry 98 97 97 04/28/18 16:00 04/28/18 16:17 04/28/18 17:00 Temperature Pulse Rate 71 73 Respiratory Rate 17 16 10 L Blood Pressure 118/79 120/73 Pulse Oximetry 100 96 04/28/18 18:00 04/28/18 19:00 04/28/18 20:00 Temperature 98.3 F Pulse Rate 74 70 65 Respiratory Rate 14 16 13 Blood Pressure 127/90 130/86 123/80 Pulse Oximetry 100 100 97 04/28/18 20:14 04/28/18 21:00 04/28/18 21:10 Temperature Pulse Rate 68 Respiratory Rate 22 16 Blood Pressure 131/80 Pulse Oximetry 99 97 04/28/18 22:00 04/28/18 23:00 04/29/18 00:00 Temperature Pulse Rate 67 66 67 Respiratory Rate 16 16 14 Blood Pressure 121/71 111/63 106/56 L Pulse Oximetry 96 95 96 04/29/18 00:16 04/29/18 03:19 04/29/18 08:00 Temperature 98.2 F 97.8 F 98 F Pulse Rate 75 62 68 Respiratory Rate 18 18 16 Blood Pressure 135/60 109/55 L 128/77 Pulse Oximetry 96 97 100 04/29/18 09:00 Temperature Pulse Rate Respiratory Rate Blood Pressure Pulse Oximetry 98 Intake & Output 04/28/18 04/29/18 04/29/18 18:59 06:59 18:59 Intake Total 2198 / 2198 1540 / 1540 220 / 220 Output Total 2800 / 2800 2300 / 2300 Balance -602 / -602 -760 / -760 220 / 220 Intake: IV 1548 / 1548 220 / 220 220 / 220 D5W/Normal Saline Inj 1,000 ML 1000 / 1000 @ 84 mls/hr IV.CONT .[id number] NOY Rx#:[id number] Vimpat Inj 150 MG In NS Inj 100 230 / 230 115 / 115 115 / 115 ML @ 115 mls/hr IV.SIG Q12HR NOY Rx#:[id number] Magnesium Sulfate Inj 4 GM In 108 / 108 D5W Inj 100 ML @ 25 mls/hr IV. SIG ONCE ONE Rx#:[id number] Keppra Inj 500 MG In NS Inj 100 210 / 210 105 / 105 105 / 105 ML @ 400 mls/hr IV.SIG Q12H NOY Rx#:[id number] Oral 650 / 650 1320 / 1320 Output: Urine 2800 / 2800 2300 / 2300 Other: # Voids 1 # Bowel Movements 0 Narrative: Objective Remarks: GENERAL: 33-year-old male currently resting in bed on room air no acute distress SKIN: Warm and dry. Tattoos HEAD: Normocephalic. EYES: No scleral icterus. No injection or drainage. NECK: Supple, trachea midline. No JVD or lymphadenopathy. CARDIOVASCULAR: Regular rate and rhythm. S1, S2. No S4. Without murmur RESPIRATORY: Breath sounds equal bilaterally. No accessory muscle use. GASTROINTESTINAL: Abdomen soft, non-tender, nondistended. MUSCULOSKELETAL: No cyanosis, or edema. BACK: Nontender without obvious deformity. No CVA tenderness. Results Procedures completed during hospitalization: INTUBATION AND VENT MANAGEMENT AND EXTUBATION Date of procedure: 04/25/18 Pre-op diagnosis: Acute respiratory failure/seizure Post-op diagnosis: same Procedure: DATE: 04/25/2018 PROCEDURE: Orotracheal intubation INDICATION: Acute respiratory failure DETAILS OF PROCEDURE The patient was placed in optimal position and preoxygenated with 100% FiO2 via bag valve mask. At the start oxygen saturation was 98%. The patient was administered 20 milligrams etomidate IV and 50 milligrams rocuronium IV. I entered the oropharynx with a size 4 laryngoscope blade and obtained a grade 2 view of the airway. On single attempt a size 8.0 cuffed endotracheal tube was passed through the vocal cords. Correct tube location was confirmed with end tidal CO2 detector and by auscultating over bilateral lung caputo. The endotracheal tube was secured with adhesive tape at a depth of 24 cm at the lips. The patient was connected to the ventilator. The patient tolerated the procedure well without any apparent complications. Oxygen saturations were maintained greater than 95% all times. STAT chest x-ray pending at time of dictation. Completed studies during hospitalization: Laboratory Results WBC 5.1 th/mm3 (4.0-11.0) 04/29/18 05:10 RBC 4.26 mil/mm3 (4.50-5.90) L 04/29/18 05:10 Hgb 13.2 gm/dL (13.0-17.0) 04/29/18 05:10 Hct 38.4 % (39.0-51.0) L 04/29/18 05:10 MCV 90.3 fL (80.0-100.0) 04/29/18 05:10 MCH 31.0 pg (27.0-34.0) 04/29/18 05:10 MCHC 34.3 % (32.0-36.0) 04/29/18 05:10 RDW 13.7 % (11.6-17.2) 04/29/18 05:10 Plt Count 179 th/mm3 (150-450) 04/29/18 05:10 MPV 8.2 fL (7.0-11.0) 04/29/18 05:10 Neut % (Auto) 41.6 % (16.0-70.0) 04/29/18 05:10 Lymph % (Auto) 44.4 % (9.0-44.0) H 04/29/18 05:10 Swift % (Auto) 9.5 % (0.0-8.0) H 04/29/18 05:10 Eos % (Auto) 3.6 % (0.0-4.0) 04/29/18 05:10 Baso % (Auto) 0.9 % (0.0-2.0) 04/29/18 05:10 Neut # (Auto) 2.1 th/mm3 (1.8-7.7) 04/29/18 05:10 Lymph # (Auto) 2.3 th/mm3 (1.0-4.8) 04/29/18 05:10 Swift # (Auto) 0.5 th/mm3 (0.0-0.9) 04/29/18 05:10 Eos # (Auto) 0.2 th/mm3 (0.0-0.4) 04/29/18 05:10 Baso # (Auto) 0.0 th/mm3 (0.0-0.2) 04/29/18 05:10 WBC Differential . 04/29/18 05:10 Differential Comment Auto diff final 04/29/18 05:10 PT 10.5 sec (9.8-11.6) 04/26/18 03:54 INR 1.0 Ratio 04/26/18 03:54 APTT 23.5 sec (24.3-30.1) L 04/26/18 03:54 Puncture Site Right radial 04/25/18 18:06 Patient Temperature 98.6 04/25/18 18:06 O2 Saturation 87 % (90-100) L* 04/25/18 18:06 ABG pH 7.35 (7.380-7.420) L 04/25/18 18:06 ABG pCO2 43 mmHg (38-42) H 04/25/18 18:06 ABG pO2 58 mmHG (61-120) L* 04/25/18 18:06 ABG HCO3 23 mmol/L (22-26) 04/25/18 18:06 ABG O2 Content 16.7 Vol % (12.0-20.0) 04/25/18 18:06 ABG Base Excess -1.5 mmol/L (-2-2) 04/25/18 18:06 ABG Methemoglobin 1.6 % (0-2) 04/25/18 18:06 Adelso Test Present 04/25/18 18:06 Hemoglobin 13.6 G/DL (12.0-16.0) 04/25/18 18:06 Carboxyhemoglobin 0.9 % (0-4) 04/25/18 18:06 O2 Delivery Device Ventilator 04/25/18 18:06 Liter Flow 2.00 L/M 04/25/18 14:02 Vent Setting Prvc/ac500/14/5peep 04/25/18 18:06 Inspired O2 50 % 04/25/18 18:06 Critical Value Yes 04/25/18 18:06 Sodium 143 meq/L (136-145) 04/29/18 05:10 Potassium 4.1 meq/L (3.5-5.1) D 04/29/18 05:10 Chloride 110 meq/L (98-107) H 04/29/18 05:10 Carbon Dioxide 25.7 meq/L (21.0-32.0) 04/29/18 05:10 Anion Gap 7 meq/L (5-15) 04/29/18 05:10 BUN 11 mg/dL (7-18) 04/29/18 05:10 Creatinine 1.05 mg/dL (0.60-1.30) 04/29/18 05:10 Estimated GFR 81 mL/min (>89) L 04/29/18 05:10 POC Glucose 113 mg/dl (68-110) H 04/29/18 07:41 Random Glucose 96 mg/dL (74-106) 04/29/18 05:10 Lactic Acid 2.2 mmol/L (0.4-2.0) H 04/25/18 18:26 Calcium 8.8 mg/dL (8.5-10.1) D 04/29/18 05:10 Phosphorus 4.2 mg/dL (2.5-4.9) D 04/29/18 05:10 Magnesium 2.2 mg/dL (1.5-2.5) D 04/29/18 05:10 Total Bilirubin 1.0 mg/dL (0.2-1.0) 04/28/18 04:16 AST 26 U/L (15-37) 04/28/18 04:16 ALT 23 U/L (12-78) 04/28/18 04:16 Alkaline Phosphatase 55 U/L (45-117) 04/28/18 04:16 Ammonia 44 mcmol/L (11-32) H 04/28/18 04:16 Total Creatine Kinase 307 U/L (39-308) 04/26/18 16:50 Troponin I Less than 0.02 ng/mL (0.02-0.05) L 04/26/18 16:50 Total Protein 6.5 g/dL (6.4-8.2) 04/28/18 04:16 Albumin 3.4 g/dL (3.4-5.0) 04/28/18 04:16 TSH 2.390 uIU/mL (0.358-3.740) 04/25/18 10:28 Prolactin 24.8 ng/mL (4.0 - 15.2) H 04/25/18 14:01 Nasal Screen MRSA (PCR) Not detected (Negative) 04/27/18 08:50 Urine Opiates Screen Neg (Neg) 04/25/18 14:31 Acetaminophen Less than 2.0 mcg/mL (10.0-30.0) L 04/25/18 14:01 Ur Barbiturates Screen Neg (Neg) 04/25/18 14:31 Ur Amphetamines Screen Neg (Neg) 04/25/18 14:31 U Benzodiazepines Scrn Pos (Neg) H 04/25/18 14:31 Urine Cocaine Screen Neg (Neg) 04/25/18 14:31 U Cannabinoids Screen Neg (Neg) 04/25/18 14:31 Serum Alcohol Less than 3 mg/dL (0-5) 04/25/18 14:[address] 04/25/18 10:22 CONCLUSION: 1. Negative CT Head non contrast. . Head MRI 04/25/18 16:43 CONCLUSION: 1. Unremarkable MRI brain. Abdomen X-Ray 04/25/18 20:43 CONCLUSION: Orogastric tube coiled in stomach. Endotracheal tube in good position. Chest X-Ray 04/28/18 06:00 CONCLUSION: 1. Mild left base consolidation developing. 2. Interim extubation and nasogastric tube removal. Labs on day of discharge: Labs from last 24 hours 04/29/18 04/29/18 04/29/18 07:41 05:58 05:10 WBC RBC Hgb Hct MCV MCH MCHC RDW Plt Count MPV Neut % (Auto) Lymph % (Auto) Swift % (Auto) Eos % (Auto) Baso % (Auto) Neut # (Auto) Lymph # (Auto) Swift # (Auto) Eos # (Auto) Baso # (Auto) WBC Differential Differential Comment Sodium 143 Potassium 4.1 D Chloride 110 H Carbon Dioxide 25.7 Anion Gap 7 BUN 11 Creatinine 1.05 Estimated GFR 81 L POC Glucose 113 H 98 Random Glucose 96 Calcium 8.8 D Phosphorus 4.2 D Magnesium 2.2 D 04/29/18 04/28/18 05:10 23:19 WBC 5.1 RBC 4.26 L Hgb 13.2 Hct 38.4 L MCV 90.3 MCH 31.0 MCHC 34.3 RDW 13.7 Plt Count 179 MPV 8.2 Neut % (Auto) 41.6 Lymph % (Auto) 44.4 H Swift % (Auto) 9.5 H Eos % (Auto) 3.6 Baso % (Auto) 0.9 Neut # (Auto) 2.1 Lymph # (Auto) 2.3 Swift # (Auto) 0.5 Eos # (Auto) 0.2 Baso # (Auto) 0.0 WBC Differential . Differential Comment Auto diff final Sodium Potassium Chloride Carbon Dioxide Anion Gap BUN Creatinine Estimated GFR POC Glucose 91 Random Glucose Calcium Phosphorus Magnesium - Impressions ITS Impressions Head CT 04/25/18 10:22 CONCLUSION: 1. Negative CT Head non contrast. . Head MRI 04/25/18 16:43 CONCLUSION: 1. Unremarkable MRI brain. Abdomen X-Ray 04/25/18 20:43 CONCLUSION: Orogastric tube coiled in stomach. Endotracheal tube in good position. Chest X-Ray 04/28/18 06:00 CONCLUSION: 1. Mild left base consolidation developing. 2. Interim extubation and nasogastric tube removal. Discharge Plan - Discharge Disposition Patient Disposition: 01 Discharge Home - Discharge Condition Condition: Stable - Discharge Order Discharge Orders: Discharge Order (Routine); Ordered 04/29/18 Ordered By: Sergo Sampson - Discharge Details Anticipated Discharge Date: 04/29/18 Discharge Comment: dc to retirement - Physicians Team Primary Care Provider: Primary Care Daniel,Latrice Attending Provider: Sergo Sampson Other Providers: Kennedi Carvajal MD
[2018-04-29 13:20] VITALS: BP 123/82; PULSE 61
== END 2018-04-29 16:24 ==
LOC: NEPE 10:15 → NEDA 13:11 → HIMC 15:00 → N06 04-29 00:12
PROVIDERS: ADMIT Hospitalist; ATTEND Hospitalist

== ENCOUNTER 2018-05-09 15:34 | Inpatient (IN) ==
[2018-05-09] MEDS ORDERED: Sod Chloride 0.9% Inj 1,000 ML IV.SIG ONE (15:43)
[2018-05-09] MEDS ORDERED: levETIRAcetam 1000mg/100mL Inj 100 ML IV.SIG ONE (15:51)
[2018-05-09 16:07] LABS: Baso # (Auto) 0.1 th/mm3 (0.0-0.2); Baso % (Auto) 0.7 % (0.0-2.0); Eos % (Auto) 0.5 % (0.0-4.0); Hematocrit 40.1 % (39.0-51.0); Hemoglobin 14.1 gm/dL (13.0-17.0); Lymph # (Auto) 1.9 th/mm3 (1.0-4.8); Lymph % (Auto) 23.9 % (9.0-44.0); Mean Corpuscular HGB Conc 35.3 % (32.0-36.0); Mean Corpuscular Volume 87.9 fL (80.0-100.0); Mean Platelet Volume 7.7 fL (7.0-11.0); Mono # (Auto) 0.6 th/mm3 (0.0-0.9); Mono % (Auto) 7.1 % (0.0-8.0); Neut # (Auto) 5.4 th/mm3 (1.8-7.7); Neut % (Auto) 67.8 % (16.0-70.0); Platelet Count 277 th/mm3 (150-450); Red Blood Count 4.57 mil/mm3 (4.50-5.90); Red Cell Distribution Width 13.3 % (11.6-17.2); White Blood Count 7.9 th/mm3 (4.0-11.0)
[2018-05-09 16:30] LABS: Anion Gap 9 meq/L (5-15); Blood Urea Nitrogen 11 mg/dL (7-18); Calcium 9.2 mg/dL (8.5-10.1); Carbon Dioxide 28.6 meq/L (21.0-32.0); Chloride 105 meq/L (98-107); Glomerular Filtration Rate 72 mL/min (>89); Glucose,Random 112 mg/dL (74-106); Potassium 4.1 meq/L (3.5-5.1); Sodium 143 meq/L (136-145)
[2018-05-09 16:33] LABS: ABG Base Excess 0.8 mmol/L (-2-2); ABG PCO2 38 mmHg (38-42); ABG PO2 228 mmHg (61-120)
[2018-05-09] MEDS ORDERED: Sod Chloride 0.9% Inj 1,000 ML IV.SIG SCH (16:45)
--- NOTE | 2018-05-09 16:53 | ED ---
HPI General Chief Complaint: Seizure Stated Complaint: sob/evac Time Seen by Provider: 05/09/18 15:36 Source: EMS Mode of arrival: EMS Limitations: no limitations History of Present Illness HPI Narrative: 33-year-old male arrives to the ED due to seizure activity. He has a history of epilepsy. He takes Keppra and Vimpat. He has allergies to divalproex, carbamazepine, Dilantin and phenobarbital. Today he was under the custody of Dick Harrison's office in the department of [facility] when he began to seize. EMS was called and on scene IM Versed 2 mg was given twice. The patient stopped seizing in route to the ED. seizure activity described as tonic extension of the lower extremities through the ankles and toes with the eyes rolled back of the head. Patient was admitted here April 25 to the ICU after he was intubated. At that point he received 12 mg of IV Ativan in the ER. EEG and MR imaging were negative at that time and a nonspecific diagnosis of status epilepticus was given with discharge plans that included Keppra and Vimpat. Related Data Previous Rx's Medication Instructions Recorded hydrocodone-acetaminophen 1 tab PO Q4H PRN #18 tab 04/29/18 lacosamide [Vimpat] 150 mg PO BID #60 tab 04/29/18 levetiracetam [Keppra] 750 mg PO Q12H #60 tab 04/29/18 sennosides-docusate sodium [Senna 2 tab PO BID #120 tab 04/29/18 Plus] Allergies Allergy/AdvReac Type Severity Reaction Status Date / Time asparagus Allergy Severe HIVES Unverified 09/12/17 10:54 carbamazepine Allergy Severe Unverified 09/12/17 10:54 coconut Allergy Severe HIVES Unverified 09/12/17 10:54 divalproex sodium Allergy Severe SWELLING Unverified 09/12/17 10:54 melon Allergy Severe HIVES Unverified 09/12/17 10:54 phenytoin Allergy Severe Rash/SWELLI Unverified 09/12/17 10:54 NG ziprasidone Allergy Severe Unverified 09/12/17 10:54 phenobarbital Allergy Unknown Unverified 09/12/17 10:54 OKRA Allergy Severe HIVES Uncoded 12/16/09 12:52 Review of Systems ROS Unobtainable ROS Unobtainable: unobtainable due to mental condition and unobtainable due to mental status PMFSH Social History Social History Substance History: Past History Second Hand Smoke Exposure: No Smoking Status: Cognitive impairment Tobacco Type: Cigarettes How Often Do You Have a Drink Containing Alcohol: Unable to Obtain Recent Travel in [facility] within the Last 8 Weeks: No Recent Out of Country Travel within the Last 8 Weeks: No Immunization History Tetanus Immunization: Unable to Assess Hx Influenza Vaccine This Season: Unable to Assess Exam Narrative Exam Narrative: GENERAL: 33-year-old male well-nourished well-developed, tonic seizure activity observed and the patient was transferred from EMS stretcher to the ED stretcher with rigid extension of the knees ankles and toes with the eyes rolled to the head SKIN: Focused skin assessment warm/dry. HEAD: Atraumatic. Normocephalic. EYES: Eyes rolled upwards. Pupils equal round and reactive. ENT: No nasal bleeding or discharge. Mucous membranes pink and moist. NECK: Trachea midline. No JVD. CARDIOVASCULAR: Heart rate is approximately 90 and sinus. RESPIRATORY: Breath sounds are present bilaterally. The respiratory rate is 20. GASTROINTESTINAL: Abdomen soft, non-tender, nondistended. Hepatic and splenic margins not palpable. MUSCULOSKELETAL: No obvious deformities. No clubbing. No cyanosis. No edema. NEUROLOGICAL: Seizure activity as described. Pupils equal round reactive. PSYCHIATRIC: Unable to assess. Course Initial Documented Vital Signs Temperature 98.5 F 05/09/18 15:41 Pulse Rate 96 H 05/09/18 15:41 Respiratory Rate 18 05/09/18 15:41 Blood Pressure 132/80 05/09/18 15:41 Pulse Oximetry 100 05/09/18 15:41 Last Documented Vital Signs Temperature 98.5 F 05/09/18 15:41 Pulse Rate 97 H 05/09/18 16:18 Respiratory Rate 20 05/09/18 16:18 Blood Pressure 131/77 05/09/18 16:18 Pulse Oximetry 99 05/09/18 16:18 Critical Care Time Critical Care Time: Yes Total Critical Care Time: 50 Attestation: Aggregate critical care time was 50 minutes. Time to perform other separately billable procedures was not included in the critical care time. My time did not include minutes spent treating any other patients simultaneously or on activities that did not directly contribute to the patient's treatment. The services I provided to this patient were to treat and/or prevent clinically significant deterioration that could result in: Anoxic brain injury, cardiopulmonary arrest I provided critical care services requiring my management, as noted below: Chart data review, documentation time, medication orders and management, vital sign assessments/reviewing monitor data, ordering and reviewing lab tests, ordering and interpreting/reviewing x-rays and diagnostic studies, care of the patient and discussion of the patient with the admitting physicians. Medical Decision Making MDM Narrative Medical decision making narrative: Patient received Ativan 2 mg twice here. He also received IV Keppra 400 mg IV. In total of 3 seizures occurred in the ED. The longest lasted about 10 minutes. Seizure stopped spontaneously at approximately 4:55 PM. Patient immediately began speaking normally and complained of chest pain and neck pain. Workup so far is unremarkable. Blood work so far is unremarkable with a normal bicarb on the metabolic panel. Patient's hospital course is unpredictable and is reasonably high probability for seizure activity overnight. Case discussed with Dr. Arceo for [facility] and Dr Elena was subsequently called. Dr Elena admitted under heat plant specialist service. Medical Screen Exam Complete: Yes Emergency Medical Condition: Yes Lab Data Lab results reviewed: Yes I reviewed the patient's lab results. Result diagrams: 05/09/18 15:55 05/09/18 15:55 Lab Results 05/09/18 05/09/18 05/09/18 Range/Units 15:55 15:55 16:20 WBC 7.9 (4.0-11.0) th/mm3 RBC 4.57 (4.50-5.90) mil/mm3 Hgb 14.1 (13.0-17.0) gm/dL Hct 40.1 (39.0-51.0) % MCV 87.9 (80.0-100.0) fL MCH 31.0 (27.0-34.0) pg MCHC 35.3 (32.0-36.0) % RDW 13.3 (11.6-17.2) % Plt Count 277 D (150-450) th/mm3 MPV 7.7 (7.0-11.0) fL Neut % (Auto) 67.8 (16.0-70.0) % Lymph % (Auto) 23.9 (9.0-44.0) % [place] % (Auto) 7.1 (0.0-8.0) % Eos % (Auto) 0.5 (0.0-4.0) % Baso % (Auto) 0.7 (0.0-2.0) % Neut # (Auto) 5.4 (1.8-7.7) th/mm3 Lymph # (Auto) 1.9 (1.0-4.8) th/mm3 [place] # (Auto) 0.6 (0.0-0.9) th/mm3 Eos # (Auto) 0.0 (0.0-0.4) th/mm3 Baso # (Auto) 0.1 (0.0-0.2) th/mm3 WBC Differential . Differential Comment Auto diff final Puncture Site Left radial Patient Temperature 98.6 O2 Saturation 98 (90-100) % ABG pH 7.43 H (7.380-7.420) ABG pCO2 38 (38-42) mmHg ABG pO2 228 H (61-120) mmHg ABG HCO3 25 (22-26) mmol/L ABG O2 Content 18.1 (12.0-20.0) Vol % ABG Base Excess 0.8 (-2-2) mmol/L ABG Methemoglobin 0.7 (0-2) % Adelso Test Present Hemoglobin 12.8 (12.0-16.0) G/DL Carboxyhemoglobin 1.0 (0-4) % O2 Delivery Device Nrbr Liter Flow 15.00 L/M Inspired O2 100 % Critical Value No Sodium 143 (136-145) meq/L Potassium 4.1 (3.5-5.1) meq/L Chloride 105 (98-107) meq/L Carbon Dioxide 28.6 (21.0-32.0) meq/L Anion Gap 9 (5-15) meq/L BUN 11 (7-18) mg/dL Creatinine 1.17 (0.60-1.30) mg/dL Estimated GFR 72 L (>89) mL/min Random Glucose 112 H (74-106) mg/dL Calcium 9.2 (8.5-10.1) mg/dL Magnesium 2.0 (1.5-2.5) mg/dL Phenytoin Less than 0.4 L (10.0-20.0) mcg/mL Valproic Acid Less than 3 L (50-100) mcg/mL Carbamazepine Less than 0.5 L (4.0-12.0) mcg/mL Phenobarbital Less than 2.1 L (15.0-40.0) mcg/mL Serum Alcohol Less than 3 (0-5) mg/dL Discharge Plan Discharge Disposition Patient Disposition: 30 Still Patient Physicians Team ED Provider: Pawel Posey Primary Care Provider: Primary Care Latrice Sanchez Attending Provider: Susie Arceo Discharge Interventions Interventions: Vital Signs Last Done: 05/09/18 16:18 Status ED Status: Admitted Patient
[2018-05-09] MEDS ORDERED: Bisacodyl 10 MG Supp RECTAL PRN (17:13)
[2018-05-09] MEDS ORDERED: Potassium Chlor 20 mEq Premix 20 MEQ/100 ML PIGGYBACK IV.SIG PRN ×4 (17:15→18:36)
[2018-05-09] MEDS ORDERED: Potassium Phosphate Inj 30 MMOL in Sodium Chlor 0.9% Inj 250 ML IV.SIG PRN ×2 (17:15→18:36)
[2018-05-09] MEDS ORDERED: Magnesium Sulfate Inj 4 GM in Sodium Chlor 0.9% Inj 92 ML IV.SIG PRN ×2 (17:15→18:36)
[2018-05-09] MEDS ORDERED: Potassium Chlor 40 mEq Premix 40 MEQ/100 ML PIGGYBACK IV.SIG PRN ×4 (17:15→18:36)
[2018-05-09] MEDS ORDERED: Magnesium Oxide 400 MG Tablet PO PRN ×2 (17:15→18:36)
[2018-05-09] MEDS ORDERED: Magnesium Sulfate Inj 2 GM in Sodium Chlor 0.9% Inj 96 ML IV.SIG PRN ×2 (17:15→18:36)
[2018-05-09] MEDS ORDERED: Sodium Phosphate Inj 30 MMOL in Sodium Chlor 0.9% Inj 250 ML IV.SIG PRN ×2 (17:15→18:36)
[2018-05-09] MEDS ORDERED: Potassium Chloride 25 MEQ Effervescent Tablet PO PRN ×2 (17:15→18:36)
[2018-05-09] MEDS ORDERED: Potassium Phosphate 500 MG Soluble Tablet PO PRN ×4 (17:15→18:36)
[2018-05-09 17:19] LABS: Amphetamine Screen,Urine Neg (Neg); Barbiturate Screen,Urine Neg (Neg); Cannabinoid Screen,Urine Neg (Neg); Cocaine Screen,Urine Neg (Neg); Opiate Screen,Urine Neg (Neg)
[2018-05-09] MEDS ORDERED: Ketorolac Inj 30 MG/ML (IVP) Vial IV.PUSH ONE (17:28)
--- NOTE | 2018-05-09 18:07 | P.HPCC ---
History of Present Illness Service: Critical care Primary Care Physician: No Primary Care Physician Chief Complaint: Recurrent seizures History of Present Illness: Patient 33-year-old male history of seizure disorder versus pseudoseizures brought to the ED for seizure activity. Patient is on Keppra and Vimpat. Allergic to multiple seizure medications. Today patient had seizures while in police custody. Mostly tonic-clonic received Versed 2 mg IM x2 by EMS. In the emergency department he had multiple episodes of seizure and received total 4 mg IV Ativan. Described as mostly tonic activity. Patient was recently admitted to the ICU and had workup for seizures, EEG and MRI were negative at that time. I evaluated the patient in the ED. he appears slightly lethargic but not having seizures at this time. He received 4 mg of IV Ativan in the ED, and was loaded with IV Keppra 1000 mg. Patient will be admitted to ICU will be placed back on first home dose of patent Keppra. - Diagnosis (1) Status epilepticus (2) Seizure (3) Depression Inpatient Certification: I certify that the inpatient services were ordered in accordance with Medicare regulations governing the order. This includes certification that hospital inpatient services are reasonable and necessary and in the case of services not specified as inpatient-only under 42 CFR 419.22(n), that they are appropriately provided as inpatient services in accordance to with the 2-midnight benchmark under 43 CFR 412.3(e) Estimated Total Length of Stay (Days): 4 Plans for Post Hospital Care: Not yet determined Review of Systems All other systems reviewed negative except as stated in [facility] - History History Provided By: Medical Record, Ict Quality Assurance Engineer / EMT - Medical History Medical History: Medical History (Last Reviewed 05/09/18 @ 15:46 by Mera Arriola RN) Depression Seizure disorder - Surgical History Surgical History: Surgical History (Last Reviewed 05/09/18 @ 15:46 by Mera Arriola RN) Surgical history unknown (Acute) - Family History Family History: Family History (Last Reviewed 04/29/18 @ 08:05 by Marina Vega) Mother History of seizure - Tobacco History Second Hand Smoke Exposure: No Smoking Status: Cognitive impairment Tobacco Type: Cigarettes - Alcohol History How Often Do You Have a Drink Containing Alcohol: Unable to Obtain - Substance Use History Substance History: Past History - Travel History Recent Travel in the [place] Within the Last 8 Weeks: No Recent Travel Out of the Country Within the Last 8 Weeks: No - Immunization History Tetanus Immunization: Unable to Assess Hx Influenza Vaccine This Season: Unable to Assess Medications and Allergies Active Medications: Active Medications Albuterol (Duoneb Neb (Prn)) 1 ampul NEB Q2HR NEB PRN PRN Reason: WHEEZING Bisacodyl (Dulcolax Supp) 10 mg RECTAL DAILY PRN PRN Reason: if no BM in last 24h Chlorhexidine Gluconate (Chlorhexidine 2% Cloth) 3 pack TOPICAL DAILY@0400 NOY Stop: 05/15/18 03:59 Chlorhexidine Gluconate (Chlorhexidine 2% Cloth) 3 pack TOPICAL DAILY@0400 PRN PRN Reason: Extra cloth needed Stop: 05/15/18 03:59 Enoxaparin Sodium (Lovenox Inj) 40 mg SQ Q24H NOY Lorazepam 80 mg/ Dextrose 80 mls @ 1 mls/hr IV.CONT TITRATE PRN; Protocol PRN Reason: Per Protocol Sodium Chloride (Ns Inj) 1,000 mls @ 0 mls/hr IV.SIG BOLUS NOY Magnesium Sulfate 4 gm/ Sodium (Chloride) 100 mls @ 50 mls/hr IV.SIG UNSCH PRN PRN Reason: For Magnesium 0.9 - 1.1 mg/dL Magnesium Sulfate 2 gm/ Sodium (Chloride) 100 mls @ 50 mls/hr IV.SIG UNSCH PRN PRN Reason: For Magnesium 1.2 - 1.6 mg/dL Potassium Chloride (Kcl 40 Meq Premix Inj) 40 meq in 100 mls @ 25 mls/hr IV.SIG Q2H PRN PRN Reason: For Potassium 2.8 - 3.2 mEq/L Potassium Chloride (Kcl 20 Meq Premix Inj) 20 meq in 100 mls @ 50 mls/hr IV.SIG Q2H PRN PRN Reason: For Potassium 3.3 - 3.5 mEq/L Potassium Chloride (Kcl 20 Meq Premix Inj) 20 meq in 100 mls @ 50 mls/hr IV.SIG Q2H PRN PRN Reason: For Potassium 2.8 - 3.2 mEq/L Potassium Phosphate 30 mmol/ (Sodium Chloride) 260 mls @ 42 mls/hr IV.SIG UNSCH PRN PRN Reason: SEE LABEL COMMENTS Sodium Phosphate 30 mmol/ (Sodium Chloride) 260 mls @ 42 mls/hr IV.SIG UNSCH PRN PRN Reason: For Phosphorus < 2.5 mg/dL Potassium Chloride (Kcl 40 Meq Premix Inj) 40 meq in 100 mls @ 25 mls/hr IV.SIG UNSCH PRN PRN Reason: For Potassium 3.3 - 3.5 mEq/L Levetiracetam 750 mg/ Sodium (Chloride) 107.5 mls @ 400 mls/hr IV.SIG Q12H NOY Lacosamide (Vimpat) 150 mg PO BID NOY Lactulose (Lactulose Liq) 30 ml PO BID NOY Magnesium Oxide (Mag-Ox) 800 mg PO UNSCH PRN PRN Reason: For Magnesium 1.2 - 1.6 mg/dL Ondansetron HCl (Zofran Inj) 4 mg IV.PUSH Q6H PRN PRN Reason: NAUSEA OR VOMITING Polyethylene Glycol (Miralax) 17 gm PO BID NOY Potassium Bicarb/Potassium Chloride (K-Lyte Cl Eff) 50 meq PO UNSCH PRN PRN Reason: For Potassium 3.3 - 3.5 mEq/L Potassium Phosphate (K-Phos Original) 2,000 mg PO Q4H PRN PRN Reason: Phosphorus Less Than 2.5 mg/dL Potassium Phosphate (K-Phos Original) 2,000 mg PO UNSCH PRN PRN Reason: SEE LABEL COMMENTS Senna/Docusate Sodium (Linda-Colace) 1 tab PO BID NOY Sodium Chloride (Ns Flush) 2 ml IV.FLUSH PRN PRN PRN Reason: FLUSH AFTER USING IV ACCESS Sodium Chloride (Ns Flush) 2 ml IV.FLUSH UNSCH PRN PRN Reason: FLUSH AFTER USING IV ACCESS Allergies Allergy/AdvReac Type Severity Reaction Status Date / Time asparagus Allergy Severe HIVES Unverified 09/12/17 10:54 carbamazepine Allergy Severe Unverified 09/12/17 10:54 coconut Allergy Severe HIVES Unverified 09/12/17 10:54 divalproex sodium Allergy Severe SWELLING Unverified 09/12/17 10:54 melon Allergy Severe HIVES Unverified 09/12/17 10:54 phenytoin Allergy Severe Rash/SWELLI Unverified 09/12/17 10:54 NG ziprasidone Allergy Severe Unverified 09/12/17 10:54 phenobarbital Allergy Unknown Unverified 09/12/17 10:54 OKRA Allergy Severe HIVES Uncoded 12/16/09 12:52 Results - Labs CBC & Chem 7: 05/09/18 15:55 05/09/18 15:55 Labs: Short CBC 05/09/18 Range/Units 15:55 WBC 7.9 (4.0-11.0) th/mm3 Hgb 14.1 (13.0-17.0) gm/dL Hct 40.1 (39.0-51.0) % Plt Count 277 D (150-450) th/mm3 BMP 05/09/18 15:55 Sodium 143 Potassium 4.1 Chloride 105 Carbon Dioxide 28.6 BUN 11 Creatinine 1.17 Calcium 9.2 Exam Vital signs: Vital Signs 05/09/18 15:41 05/09/18 16:00 05/09/18 16:18 Temperature 98.5 F Pulse Rate 96 H 97 H Respiratory Rate 18 20 Blood Pressure 132/80 131/77 Pulse Oximetry 100 98 99 Intake & Output 05/08/18 05/09/18 05/09/18 18:59 06:59 18:59 Intake Total 1100 / 1100 Balance 1100 / 1100 Weight 81.647 kg Intake: IV 1100 / 1100 NS Inj 1,000 ML @ Wide Open IV. 1000 / 1000 SIG BOLUS ONE Rx#:[id number] Keppra 1000 mg/100 mL Premix 100 / 100 100 ML @ 400 mls/hr IV.SIG ONCE ONE Rx#:[id number] Narrative: GENERAL: 33-year-old male well-nourished well-developed, lying on ER [facility]. Lethargic but awake SKIN: Warm/dry. HEAD: Atraumatic. Normocephalic. EYES: Pupils equal round and reactive. ENT: No nasal bleeding or discharge. Mucous membranes dry NECK: Trachea midline. No JVD. CARDIOVASCULAR: NSR. No murmurs RESPIRATORY: Breath sounds are present bilaterally. No wheezes or crackles GASTROINTESTINAL: Abdomen soft, non-tender, nondistended. Hepatic and splenic margins not palpable. MUSCULOSKELETAL: No obvious deformities. No clubbing. No cyanosis. No edema. NEUROLOGICAL: Vision is slightly lethargic but wakes up easily AAO x3 follows commands. No focal deficits Septic Shock Reassessment Septic shock perfusion: reassessment completed Caprini VTE Risk Assessment Caprini VTE Risk Assessment: Moderate/High Risk (score >= 2) Caprini Risk Assessment Model: Point Value = 1 Point Value = 2 Point Value = 3 Point Value = 5 Age 41-60 Minor surgery BMI > 25 kg/m2 Swollen legs Varicose veins or History of unexplained or recurrent spontaneous Oral contraceptives or hormone replacement Sepsis (< 1 month) Serious lung disease, including pneumonia (< 1 month) Abnormal pulmonary function Acute myocardial infarction Congestive heart failure (< 1 month) History of inflammatory bowel disease Medical patient at bed rest Age 61-74 Arthroscopic surgery Major open surgery (> 45 min) Laparoscopic surgery (> 45 min) Malignancy Confined to bed (> 72 hours) Immobilizing plaster cast Central venous access Age >= 75 History of VTE Family history of VTE Factor V Leiden Prothrombin [id number] Lupus anticoagulant Anticardiolipin antibodies Elevated serum homocysteine Heparin-induced thrombocytopenia Other congenital or acquired thrombophilia Stroke (< 1 month) Elective arthroplasty Hip, pelvis, or leg fracture Acute spinal cord injury (< 1 month) Prophylaxis Regimen: Total Risk Factor Score Risk Level Prophylaxis Regimen 0-1 Low Early ambulation 2 Moderate Order ONE of the following: *Sequential Compression Device (SCD) *Heparin 5000 units SQ BID 3-4 Higher Order ONE of the following medications: *Heparin 5000 units SQ TID *Enoxaparin/Lovenox 40 mg SQ daily (WT < 150 kg, CrCl > 30 mL/min) *Enoxaparin/Lovenox 30 mg SQ daily (WT < 150 kg, CrCl > 10-29 mL/min) *Enoxaparin/Lovenox 30 mg SQ BID (WT < 150 kg, CrCl > 30 mL/min) AND/OR *Sequential Compression Device (SCD) 5 or more Highest Order ONE of the following medications: *Heparin 5000 units SQ TID (Preferred with Epidurals) *Enoxaparin/Lovenox 40 mg SQ daily (WT < 150 kg, CrCl > 30 mL/min) *Enoxaparin/Lovenox 30 mg SQ daily (WT < 150 kg, CrCl > 10-29 mL/min) *Enoxaparin/Lovenox 30 mg SQ BID (WT < 150 kg, CrCl > 30 mL/min) AND *Sequential Compression Device (SCD) Assessment and Plan - Problem List (1) Status epilepticus Code(s): G40.901 - Epilepsy, unspecified, not intractable, with status epilepticus Status: Acute (2) Seizure Code(s): R56.9 - Unspecified convulsions Status: Acute (3) Depression Code(s): F32.9 - Major depressive disorder, single episode, unspecified Status : Chronic - Assessment and Plan Plan: Plan: Neuro/Psych: Status epilepticus 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 Will repeat EEG -CT brain revealed no acute intracranial findings CV: -Close hemodynamic monitoring -On normal saline at 100 cc an hour. Resp: History of right lower lobe PE 2016 -Nasal cannula to maintain saturations greater than or equal to 92% -Incentive spirometry while awake -DuoNeb aerosols every 2 hours as needed for dyspnea GI: -Regular diet once seizure control -Bowel regimen if needed Endo: -Electrolyte replacement per protocol Renal: -Monitor urine output -Accurate I's and O's -Creatinine currently within normal limits Heme: -Monitor CBC coags ID: -No evidence of any infection at this time FEN: -Replace electrolytes as clinically indicated per protocol Access -Utilize peripheral IV. Prophylaxis -GI -Famotidine -DVT -SCD/Lovenox Code Status: Full Discussed Condition With: Dr. Posey
--- NOTE | 2018-05-09 18:11 | CT ---
EXAM DATE: 05/09/2018 3:53 PM EDT AGE/SEX: 33 years / Male INDICATIONS: Altered mental status. Seizure. CLINICAL DATA: This is the patient's initial encounter. Patient reports that signs and symptoms have been present for 1 day and indicates a pain score of 0/10. MEDICAL/SURGICAL HISTORY: . Seizure. None. RADIATION DOSE: 56.36 CTDI (mGy) COMPARISON: [facility] [place], CT HEAD W/O CONTRAST, 04/25/2018. [facility] [place], MR HEAD W/O CONTRAST, 04/25/2018. . TECHNIQUE: CT of the head without contrast. Using automated exposure control and adjustment of the mA and/or kV according to patient size, radiation dose was kept as low as reasonably achievable to ob tain optimal diagnostic quality images. DICOM format image data is available electronically for revi ew and comparison. FINDINGS: Cerebrum: The ventricles are normal for age. No evidence of midline shift, mass lesion, hemorrhage or acute infarction. No extraaxial fluid collections are seen. Posterior Fossa: The cerebellum and brainstem are intact. The 4th ventricle is midline. The cerebe llopontine angle is unremarkable. Extracranial: The visualized portion of the orbits is intact. Skull: The calvaria is intact. No evidence of skull fracture. CONCLUSION: Negative noncontrast head CT. . Electronically signed by: Evin Burks MD 05/09/2018 6:10 PM EDT
[2018-05-09] MEDS: Enoxaparin Inj 40 MG/0.4 ML Syringe SQ SCH (18:14)
[2018-05-09] MEDS: Sod Chloride 0.9% Inj 1,000 ML IV.CONT SCH (20:19)
[2018-05-09] MEDS: Lacosamide 50 MG Tablet PO SCH (22:06)
[2018-05-09] MEDS: Senna/Docusate Sodium 8.6/50 MG Tablet PO SCH (22:07)
[2018-05-09] MEDS: Polyethylene Glycol 3350 17 GM Packet PO SCH (22:07)
[2018-05-09] MEDS: Famotidine 20 MG Tablet PO SCH (22:07)
[2018-05-10] MEDS: Chlorhexidine Gluconate 2% 1 Pack (2 Cloths) TOPICAL SCH ×2 (03:11)
[2018-05-10] MEDS ORDERED: Chlorhexidine Gluconate 2% 1 Pack (2 Cloths) TOPICAL PRN ×2 (04:00)
[2018-05-10 06:04] LABS: Baso % (Auto) 0.7 % (0.0-2.0); Eos # (Auto) 0.2 th/mm3 (0.0-0.4); Eos % (Auto) 2.3 % (0.0-4.0); Hematocrit 37.5 % (39.0-51.0); Hemoglobin 13.1 gm/dL (13.0-17.0); Lymph # (Auto) 2.9 th/mm3 (1.0-4.8); Lymph % (Auto) 42.6 % (9.0-44.0); Mean Corpuscular HGB Conc 34.9 % (32.0-36.0); Mean Corpuscular Hemoglobin 31.2 pg (27.0-34.0); Mean Corpuscular Volume 89.3 fL (80.0-100.0); Mean Platelet Volume 7.8 fL (7.0-11.0); Mono # (Auto) 0.4 th/mm3 (0.0-0.9); Mono % (Auto) 6.3 % (0.0-8.0); Neut # (Auto) 3.3 th/mm3 (1.8-7.7); Neut % (Auto) 48.1 % (16.0-70.0); Platelet Count 256 th/mm3 (150-450); Red Cell Distribution Width 13.3 % (11.6-17.2); White Blood Count 6.8 th/mm3 (4.0-11.0)
[2018-05-10] MEDS: Sod Chloride 0.9% Inj 1,000 ML IV.CONT SCH ×2 (06:12→15:07)
[2018-05-10 06:35] LABS: Calcium 8.2 mg/dL (8.5-10.1); Carbon Dioxide 25.4 meq/L (21.0-32.0); Potassium 3.7 meq/L (3.5-5.1)
[2018-05-10] MEDS: Lacosamide 50 MG Tablet PO SCH ×2 (08:48→20:18)
[2018-05-10] MEDS: Senna/Docusate Sodium 8.6/50 MG Tablet PO SCH ×2 (08:49→20:21)
[2018-05-10] MEDS: Famotidine 20 MG Tablet PO SCH ×2 (08:49→20:21)
[2018-05-10] MEDS: Polyethylene Glycol 3350 17 GM Packet PO SCH ×2 (08:49→20:21)
--- NOTE | 2018-05-10 11:52 | ECG ---
Date Performed: 05/09/2018 Time Performed: 15:43:53 PTAGE: 33 years EKG: Sinus rhythm NORMAL ECG INTERPRETATION BASED ON A DEFAULT AGE OF 40 YEARS PREVIOUS TRACING : 04/25/2018 10.21 Since the previous tracing, no significant change not ed DOCTOR: Khoi Yung Interpretating Date/Time 05/10/2018 11:50:32
--- NOTE | 2018-05-10 12:27 | MB ---
cc: Marcio Zuleta MD, PhD DATE: 05/10/2018 REASON FOR CONSULTATION: Seizure. HISTORY OF PRESENT ILLNESS: Mr. Vazquez is a 33-year-old male who states he has a long history of seizures, which he states are grand mal seizures, apparently also has pseudo seizures. He has been on Keppra and Vimpat in the past. He was on Tegretol, Depakote, phenobarbital and Dilantin, but had allergic reactions to these, could not tolerate them. He came to the ER after he was having several tonic clonic seizures while in police custody, was given Versed 2 mg IM by EMS. In the ER, had multiple seizure-like episodes receiving 4 mg of IV Ativan total. Tonic-clonic activity in the past. He has had negative EEGs and MRI brain workup. PAST MEDICAL HISTORY: History of depression, seizure disorder. CURRENT MEDICATIONS: 1. Albuterol nebulizer. 2. Chlorhexidine. 3. Lovenox 40 mg subcutaneously daily. 4. Famotidine 20 mg b.i.d. 5. Vimpat 150 mg b.i.d. 6. Keppra 750 mg every 12 hours. PHYSICAL EXAMINATION: VITAL SIGNS: His blood pressure is 138/69, pulse is 81, respiratory rate 30. NEUROLOGIC: Higher cortical function is normal. Cranial nerves intact. Motor exam, no focal deficits are noted. CT scan of the brain is normal. LABORATORY DATA: His white count 6800, hemoglobin 13.1, hematocrit 37%, platelet count 256,000. Sodium is 145, potassium 3.7, chloride 110, CO2 is 25.4, BUN is 11, creatinine 0.98. GFR is 88, calcium 8.2. Glucose is 89. Tox screen, positive benzodiazepines, otherwise negative. IMPRESSION: Recurrent seizures. RECOMMENDATION: We will obtain an EEG, MRI brain. I also recommend increasing the Keppra dose to 1000 mg t.i.d. Continue current dose of Vimpat. Marcio Zuleta MD, PhD LUCÍA/sv , 12:01 PM , 12:06 PM
--- NOTE | 2018-05-10 14:37 | MR ---
EXAM DATE: 05/10/2018 12:09 PM EDT AGE/SEX: 33 years / Male INDICATIONS: Seizures. CLINICAL DATA: This is the patient's initial encounter. Patient reports that signs and symptoms have been present for 1 day and indicates a pain score of 0/10. MEDICAL/SURGICAL HISTORY: None. None. COMPARISON: No prior exams available for comparison. TECHNIQUE: Multiplanar, multisequence examination of the brain was performed without and with 8 ml Ga davist (gadobutrol) contrast as a single exam dose. FINDINGS: Cerebrum: The ventricles are normal for age. No evidence of midline shift, mass lesion, hemorrhage or acute infarction. No extraaxial fluid collections are seen. The pituitary gland and suprasellar cistern are normal in configuration. White Matter: No significant signal abnormalities are seen in the white matter. Posterior Fossa: The cerebellum and brainstem are intact. The 4th ventricle is midline. The cerebel lopontine angle is unremarkable. The cerebellar tonsils are normal in position. Diffusion Imaging: No focal areas of restricted diffusion are seen. No evidence of acute infarction . Extracranial: The visualized portions of the orbits and paranasal sinuses are unremarkable. Post Contrast: No abnormal areas of parenchymal or dural enhancement. No evidence of blood-brain ba rrier breakdown. CONCLUSION: 1. Negative MRI of the brain performed without and with contrast. Electronically signed by: Sergo Herman MD 05/10/2018 2:36 PM EDT
[2018-05-10] MEDS ORDERED: Gadobutrol PF 10 MMOL/10 ML Vial (for RAD) IV.SIG ONE (15:06)
[2018-05-10] MEDS: levETIRAcetam 500 MG Tablet PO SCH ×2 (15:07→17:29)
[2018-05-10] MEDS: Enoxaparin Inj 40 MG/0.4 ML Syringe SQ SCH (17:29)
[2018-05-10] MEDS ORDERED: Ibuprofen 600 MG Tablet PO PRN (17:53)
--- NOTE | 2018-05-10 17:54 | P.PNIM ---
Subjective Interval history: The pt complained of soreness all over from his seizures. He said he recently was started on Zyprexa. He said he had a fever and low blood pressure in January. Guards and nursing at the bedside. Physical Exam Vital signs: Vital Signs 05/09/18 19:50 05/09/18 20:08 05/09/18 20:30 Temperature 98.8 F Pulse Rate 86 91 H Respiratory Rate 17 17 Blood Pressure 126/88 Pulse Oximetry 98 99 99 05/09/18 21:00 05/09/18 21:30 05/09/18 22:00 Temperature Pulse Rate 83 91 H 89 Respiratory Rate 21 24 25 H Blood Pressure 122/74 120/79 Pulse Oximetry 98 97 100 05/09/18 22:01 05/09/18 22:31 05/09/18 23:00 Temperature Pulse Rate 89 92 H 97 H Respiratory Rate 25 H 23 18 Blood Pressure 114/85 136/88 151/90 H Pulse Oximetry 100 97 97 05/09/18 23:35 05/10/18 00:00 05/10/18 00:30 Temperature 97.9 F Pulse Rate 93 H 90 84 Respiratory Rate 27 H 24 22 Blood Pressure 117/82 116/89 118/74 Pulse Oximetry 97 97 96 05/10/18 01:00 05/10/18 01:01 05/10/18 01:30 Temperature Pulse Rate 89 90 80 Respiratory Rate 13 17 21 Blood Pressure 155/76 H 129/70 Pulse Oximetry 97 97 97 05/10/18 02:00 05/10/18 02:01 05/10/18 02:30 Temperature Pulse Rate 76 81 74 Respiratory Rate 25 H 19 19 Blood Pressure 122/94 H 112/67 Pulse Oximetry 97 98 97 05/10/18 03:00 05/10/18 03:01 05/10/18 03:31 Temperature Pulse Rate 73 75 70 Respiratory Rate 20 20 19 Blood Pressure 89/50 L 114/68 Pulse Oximetry 97 97 97 05/10/18 04:00 05/10/18 04:30 05/10/18 04:52 Temperature Pulse Rate 78 68 82 Respiratory Rate 13 19 32 H Blood Pressure 112/60 90/53 L 139/75 Pulse Oximetry 97 96 99 05/10/18 05:00 05/10/18 05:31 05/10/18 06:00 Temperature Pulse Rate 72 74 80 Respiratory Rate 26 H 18 30 H Blood Pressure 127/68 93/55 L Pulse Oximetry 97 97 98 05/10/18 06:01 05/10/18 07:00 05/10/18 08:00 Temperature Pulse Rate 81 75 79 Respiratory Rate 30 H 27 H 20 Blood Pressure 138/69 122/71 114/73 Pulse Oximetry 98 98 98 05/10/18 08:38 05/10/18 09:00 05/10/18 10:00 Temperature Pulse Rate 81 78 76 Respiratory Rate 21 18 21 Blood Pressure 117/82 116/78 126/79 Pulse Oximetry 98 98 99 05/10/18 11:00 05/10/18 12:00 05/10/18 16:00 Temperature 98.4 F Pulse Rate 90 90 84 Respiratory Rate 20 26 H 20 Blood Pressure 130/76 132/77 114/61 Pulse Oximetry 98 98 97 Intake & Output 05/09/18 05/10/18 05/10/18 18:59 06:59 18:59 Intake Total 1100 / 1100 2107.5 / 2107.5 1700 / 1700 Output Total 2350 / 2350 3450 / 3450 Balance 1100 / 1100 -242.5 / -242.5 -1750 / -1750 Weight 81.647 kg 83 kg Intake: IV 1100 / 1100 1107.5 / 1107.5 1000 / 1000 NS Inj 1,000 ML @ 100 mls/hr IV 1000 / 1000 1000 / 1000 .CONT .Q10H NOY Rx#:[id number] NS Inj 1,000 ML @ Wide Open IV. 1000 / 1000 SIG BOLUS ONE Rx#:[id number] Keppra 1000 mg/100 mL Premix 100 / 100 100 ML @ 400 mls/hr IV.SIG ONCE ONE Rx#:[id number] Keppra Inj 750 MG In NS Inj 100 107.5 / 107.5 ML @ 400 mls/hr IV.SIG Q12H NOY Rx#:[id number] Oral 1000 / 1000 700 / 700 Output: Urine 2350 / 2350 3450 / 3450 Other: Weight On Admission 83 kg Narrative: GENERAL: No distress SKIN: Warm/dry. HEAD: Atraumatic. Normocephalic. EYES: Pupils equal round and reactive. ENT: No nasal bleeding or discharge. Mucous membranes dry NECK: Trachea midline. No JVD. CARDIOVASCULAR: NSR. No murmurs RESPIRATORY: Breath sounds are present bilaterally. No wheezes or crackles GASTROINTESTINAL: Abdomen soft, non-tender, nondistended. Hepatic and splenic margins not palpable. MUSCULOSKELETAL: No obvious deformities. No clubbing. No cyanosis. No edema. NEUROLOGICAL: AAO x3 follows commands. No focal deficits Results - Labs CBC & Chem 7: 05/10/18 04:58 05/10/18 04:58 Laboratory Results - last 24 hr 05/09/18 05/10/18 05/10/18 19:57 04:58 04:58 WBC 6.8 RBC 4.20 L Hgb 13.1 Hct 37.5 L MCV 89.3 MCH 31.2 MCHC 34.9 RDW 13.3 Plt Count 256 MPV 7.8 Neut % (Auto) 48.1 Lymph % (Auto) 42.6 [place] % (Auto) 6.3 Eos % (Auto) 2.3 Baso % (Auto) 0.7 Neut # (Auto) 3.3 Lymph # (Auto) 2.9 [place] # (Auto) 0.4 Eos # (Auto) 0.2 Baso # (Auto) 0.0 WBC Differential . Differential Comment Auto diff final Sodium 145 Potassium 3.7 Chloride 110 H Carbon Dioxide 25.4 Anion Gap 10 BUN 11 Creatinine 0.98 Estimated GFR 88 L Random Glucose 89 Calcium 8.2 L D Nasal Screen MRSA (PCR) Not detected - Imaging Impressions Head CT 05/09/18 15:43 CONCLUSION: Negative noncontrast head CT. . Head MRI 05/10/18 00:00 CONCLUSION: 1. Negative MRI of the brain performed without and with contrast. Assessment and Plan - Plan Status epilepticus Seizure disorder vs pseudoseizures Depression disorder NOS -Patient received a total 4 mg IV Ativan in the ED and was loaded with 1 g of Keppra -Continue Keppra and Vimpat per neurology. -CT brain revealed no acute intracranial findings. MRI negative. -EEG pending. -neuro checks, seizure precautions. -pain control as needed for "seizure pains". Right shoulder pain Chronic. -x ray pending. History of right lower lobe PE 2016 -Nasal cannula to maintain saturations greater than or equal to 92% -Incentive spirometry while awake -DuoNeb aerosols every 2 hours as needed for dyspnea PPx: SCDs /Lovenox
--- NOTE | 2018-05-10 20:59 | XR ---
EXAM DATE: 05/10/2018 12:00 AM EDT AGE/SEX: 33 years / Male INDICATIONS: Pain post seizure. CLINICAL DATA: This is the patient's initial encounter. Patient reports that signs and symptoms have been present for 2 weeks and indicates a pain score of 3/10. MEDICAL/SURGICAL HISTORY: None. None. COMPARISON: [facility] [place], SHOULDER RIGHT LTD (2VWS), 03/03/2011. . FINDINGS: Bony structures are intact and in normal alignment. Joints are intact without dislocation or signifi cant arthropathy. Osseous density is normal. Soft tissues are unremarkable. No radiopaque foreign bodies seen. CONCLUSION: No fracture or subluxation of the right shoulder. Electronically signed by: Evin Burks MD 05/10/2018 8:58 PM EDT
[2018-05-11] MEDS: Sod Chloride 0.9% Inj 1,000 ML IV.CONT SCH ×3 (03:34→22:33)
[2018-05-11] MEDS: Chlorhexidine Gluconate 2% 1 Pack (2 Cloths) TOPICAL SCH ×2 (03:35→03:36)
[2018-05-11 05:30] LABS: Baso # (Auto) 0.1 th/mm3 (0.0-0.2); Baso % (Auto) 0.8 % (0.0-2.0); Eos # (Auto) 0.2 th/mm3 (0.0-0.4); Eos % (Auto) 3.2 % (0.0-4.0); Hematocrit 39.2 % (39.0-51.0); Hemoglobin 13.6 gm/dL (13.0-17.0); Lymph # (Auto) 3.2 th/mm3 (1.0-4.8); Lymph % (Auto) 45.6 % (9.0-44.0); Mean Corpuscular HGB Conc 34.8 % (32.0-36.0); Mean Corpuscular Hemoglobin 30.9 pg (27.0-34.0); Mean Corpuscular Volume 88.6 fL (80.0-100.0); Mono # (Auto) 0.4 th/mm3 (0.0-0.9); Mono % (Auto) 6.1 % (0.0-8.0); Neut # (Auto) 3.1 th/mm3 (1.8-7.7); Neut % (Auto) 44.3 % (16.0-70.0); Platelet Count 251 th/mm3 (150-450); Red Blood Count 4.42 mil/mm3 (4.50-5.90); Red Cell Distribution Width 13.3 % (11.6-17.2); White Blood Count 7.1 th/mm3 (4.0-11.0)
[2018-05-11 05:43] LABS: Calcium 8.6 mg/dL (8.5-10.1); Carbon Dioxide 24.9 meq/L (21.0-32.0); Potassium 3.7 meq/L (3.5-5.1)
[2018-05-11] MEDS: Polyethylene Glycol 3350 17 GM Packet PO SCH ×2 (08:33→22:31)
[2018-05-11] MEDS: Lacosamide 50 MG Tablet PO SCH ×2 (08:33→22:30)
[2018-05-11] MEDS: levETIRAcetam 500 MG Tablet PO SCH ×3 (08:33→17:26)
[2018-05-11] MEDS: Famotidine 20 MG Tablet PO SCH ×2 (08:33→22:31)
[2018-05-11] MEDS: Senna/Docusate Sodium 8.6/50 MG Tablet PO SCH ×2 (08:34→22:31)
[2018-05-11] MEDS: Acetaminophen 325 MG Tablet PO PRN (09:24)
--- NOTE | 2018-05-11 09:36 | P.PNIM ---
Subjective Interval history: The pt said his pain was controlled. He was waiting for more Tylenol. He denied any further seizure activity. No acute complaint. Discussed with nursing and neurology. Physical Exam Vital signs: Vital Signs 05/10/18 10:00 05/10/18 11:00 05/10/18 12:00 Temperature Pulse Rate 76 90 90 Respiratory Rate 21 20 26 H Blood Pressure 126/79 130/76 132/77 Pulse Oximetry 99 98 98 05/10/18 16:00 05/10/18 18:00 05/10/18 20:00 Temperature 98.4 F 99.1 F Pulse Rate 84 75 76 Respiratory Rate 20 20 Blood Pressure 114/61 119/79 Pulse Oximetry 97 98 05/10/18 22:00 05/11/18 00:00 05/11/18 02:00 Temperature 99.0 F Pulse Rate 72 76 52 L Respiratory Rate 12 Blood Pressure 83/46 L Pulse Oximetry 96 05/11/18 04:00 05/11/18 06:00 Temperature 98.9 F Pulse Rate 67 67 Respiratory Rate 13 Blood Pressure 99/75 L Pulse Oximetry 98 Intake & Output 05/10/18 05/11/18 05/11/18 18:59 06:59 18:59 Intake Total 1700 / 1700 1480 / 1480 Output Total 3450 / 3450 1900 / 1900 Balance -1750 / -1750 -420 / -420 Weight 88 kg Intake: IV 1000 / 1000 1000 / 1000 NS Inj 1,000 ML @ 100 mls/hr IV 1000 / 1000 1000 / 1000 .CONT .Q10H NOY Rx#:[id number] Oral 700 / 700 480 / 480 Output: Urine 3450 / 3450 1900 / 1900 Other: Date of Last Bowel Movement 05/10/18 # Bowel Movements 1 Narrative: GENERAL: No distress SKIN: Warm/dry. HEAD: Atraumatic. Normocephalic. EYES: Pupils equal round and reactive. ENT: No nasal bleeding or discharge. Mucous membranes dry NECK: Trachea midline. No JVD. CARDIOVASCULAR: NSR. No murmurs RESPIRATORY: Breath sounds are present bilaterally. No wheezes or crackles GASTROINTESTINAL: Abdomen soft, non-tender, nondistended. Hepatic and splenic margins not palpable. MUSCULOSKELETAL: No obvious deformities. No clubbing. No cyanosis. No edema. NEUROLOGICAL: AAO x3 follows commands. No focal deficits Results - Labs CBC & Chem 7: 05/11/18 04:05 05/11/18 04:05 Laboratory Results - last 24 hr 05/11/18 05/11/18 04:05 04:05 WBC 7.1 RBC 4.42 L Hgb 13.6 Hct 39.2 MCV 88.6 MCH 30.9 MCHC 34.8 RDW 13.3 Plt Count 251 MPV 8.0 Neut % (Auto) 44.3 Lymph % (Auto) 45.6 H [place] % (Auto) 6.1 Eos % (Auto) 3.2 Baso % (Auto) 0.8 Neut # (Auto) 3.1 Lymph # (Auto) 3.2 [place] # (Auto) 0.4 Eos # (Auto) 0.2 Baso # (Auto) 0.1 WBC Differential . Differential Comment Auto diff final Sodium 145 Potassium 3.7 Chloride 110 H Carbon Dioxide 24.9 Anion Gap 10 BUN 15 Creatinine 0.97 Estimated GFR 89 Random Glucose 84 Calcium 8.6 - Imaging Impressions Head MRI 05/10/18 00:00 CONCLUSION: 1. Negative MRI of the brain performed without and with contrast. Shoulder X-Ray 05/10/18 00:00 CONCLUSION: No fracture or subluxation of the right shoulder. Assessment and Plan - Plan Status epilepticus Seizure disorder vs pseudoseizures Depression disorder NOS -Patient received a total 4 mg IV Ativan in the ED and was loaded with 1 g of Keppra -Continue Keppra and Vimpat per neurology. Keppra dose was increased. -CT brain revealed no acute intracranial findings. MRI negative. -EEG read pending. -neuro checks, seizure precautions. Right shoulder pain Chronic. X ray unremarkable. -outpt PT recommended. -pain control as needed with Tylenol and ibuprofen. History of right lower lobe PE 2016 -Nasal cannula to maintain saturations greater than or equal to 92% -Incentive spirometry while awake -DuoNeb aerosols every 2 hours as needed for dyspnea PPx: SCDs /Lovenox Discharge Planning: Transfer to floor. Discharge back to intermediate if neurology clears patient
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
[2018-05-11] MEDS: Enoxaparin Inj 40 MG/0.4 ML Syringe SQ SCH (17:26)
--- NOTE | 2018-05-12 03:11 | P.PNADD ---
Addendum to Inpatient Note Reason for Addendum: Additional Documentation Additional information: Halicat Note: Resident team called at 2:42 am for Halicat per nurse for seizures. States that patient has been actively seizing for about a couple of minute and had breaks in between seizures. Longest break was about 1 minute and 40 sec per nurse. Patient had received a total of 3mg of Ativan so far. Vitals: BP 153/75, O2 sat 100% on 4 LNC, RR 18 Gen: actively seizing, decorticate posture Eyes: uncontrollable eye jerking Cardio: RRR, no m/r/g Pulm: CTAB Ext: no cyanosis or edema A/P: 33 yr old incarcerated M admitted for seizure/pseudo seizure disorder/ status epilepticus. Patient was transferred from [facility] to floor today. -Stat 1mg IV Ativan. After receiving a total of 4mg IV of Ativan, seizure stopped spontaneously. Patient immediately began to speak and able to follow directions. Slight post-ictal state observed. -Bedside Blood Glucose 99, stat BMP and EKG pending -Neurology following. -CT brain revealed no acute intracranial findings -EEG read pending -Continue Keppra 1,000mg PO TID -Ativan 1mg IV Push q2h PRN -Seizure precautions -Transfer back to [facility] sdw Dr. Quevedo
[2018-05-12 03:34] LABS: Baso # (Auto) 0.1 th/mm3 (0.0-0.2); Baso % (Auto) 0.9 % (0.0-2.0); Eos # (Auto) 0.1 th/mm3 (0.0-0.4); Eos % (Auto) 1.9 % (0.0-4.0); Hematocrit 39.9 % (39.0-51.0); Hemoglobin 13.9 gm/dL (13.0-17.0); Lymph # (Auto) 2.9 th/mm3 (1.0-4.8); Lymph % (Auto) 37.2 % (9.0-44.0); Mean Corpuscular HGB Conc 34.7 % (32.0-36.0); Mean Corpuscular Hemoglobin 30.8 pg (27.0-34.0); Mean Corpuscular Volume 88.7 fL (80.0-100.0); Mean Platelet Volume 7.4 fL (7.0-11.0); Mono # (Auto) 0.5 th/mm3 (0.0-0.9); Mono % (Auto) 6.3 % (0.0-8.0); Neut # (Auto) 4.2 th/mm3 (1.8-7.7); Neut % (Auto) 53.7 % (16.0-70.0); Platelet Count 293 th/mm3 (150-450); Red Cell Distribution Width 13.1 % (11.6-17.2); White Blood Count 7.8 th/mm3 (4.0-11.0)
[2018-05-12 03:49] LABS: Alkaline Phosphatase 65 U/L (45-117); Total Protein 7.3 g/dL (6.4-8.2)
[2018-05-12 03:52] LABS: Alanine Aminotransferase 37 U/L (12-78); Albumin 3.6 g/dL (3.4-5.0); Anion Gap 11 meq/L (5-15); Aspartate Aminotransferase 20 U/L (15-37); Blood Urea Nitrogen 16 mg/dL (7-18); Calcium 8.9 mg/dL (8.5-10.1); Carbon Dioxide 26.5 meq/L (21.0-32.0); Chloride 106 meq/L (98-107); Glomerular Filtration Rate 52 mL/min (>89); Glucose,Random 98 mg/dL (74-106); Potassium 3.9 meq/L (3.5-5.1); Sodium 143 meq/L (136-145)
[2018-05-12] MEDS: Chlorhexidine Gluconate 2% 1 Pack (2 Cloths) TOPICAL SCH ×2 (03:53)
[2018-05-12] MEDS: Acetaminophen 325 MG Tablet PO PRN (05:15)
[2018-05-12] MEDS: Sod Chloride 0.9% Inj 1,000 ML IV.CONT SCH ×2 (07:33→17:42)
[2018-05-12] MEDS: Senna/Docusate Sodium 8.6/50 MG Tablet PO SCH ×2 (08:45→20:00)
[2018-05-12] MEDS: Polyethylene Glycol 3350 17 GM Packet PO SCH ×2 (08:45→20:00)
[2018-05-12] MEDS: Famotidine 20 MG Tablet PO SCH ×2 (08:45→20:00)
[2018-05-12] MEDS: Lacosamide 50 MG Tablet PO SCH ×2 (08:45→20:15)
[2018-05-12] MEDS: levETIRAcetam 500 MG Tablet PO SCH ×3 (08:46→17:41)
--- NOTE | 2018-05-12 09:52 | ECG ---
Date Performed: 05/12/2018 Time Performed: 03:02:00 PTAGE: 33 years EKG: Sinus rhythm Normal ECG NO PREVIOUS TRACING DOCTOR: Eloisa Austin Interpretating Date/Time 05/12/2018 09:49:49
--- NOTE | 2018-05-12 11:55 | P.PN ---
Subjective Interval history: patient sudden change in MS- recurrent seziures-generalized stiffness - left sz like activity obtunded, no gag pupils equal per staff this am was awake and alert, interactive reviewed Helicat called early 2 am- for seziure- received 4 mg ativan Physical Exam Vital signs: Vital Signs 05/11/18 12:00 05/11/18 13:00 05/11/18 13:01 Temperature Pulse Rate 78 74 76 Respiratory Rate 16 21 23 Blood Pressure 122/70 125/71 Pulse Oximetry 97 96 97 05/11/18 14:00 05/11/18 15:00 05/11/18 16:00 Temperature Pulse Rate 64 82 81 Respiratory Rate 20 16 20 Blood Pressure 124/72 124/72 122/59 L Pulse Oximetry 97 96 96 05/11/18 17:00 05/11/18 18:00 05/11/18 20:00 Temperature 98 F Pulse Rate 78 82 76 Respiratory Rate 29 H 24 18 Blood Pressure 119/62 127/68 143/78 H Pulse Oximetry 95 97 97 05/11/18 21:35 05/12/18 00:00 05/12/18 04:00 Temperature 98.2 F 97.7 F Pulse Rate 82 78 91 H Respiratory Rate 18 18 Blood Pressure 135/96 H 119/69 Pulse Oximetry 99 96 05/12/18 08:00 Temperature 98 F Pulse Rate 80 Respiratory Rate 18 Blood Pressure 106/64 Pulse Oximetry 98 Intake & Output 05/11/18 05/12/18 05/12/18 18:59 06:59 18:59 Intake Total 1000 / 1000 1000 / 1000 882 / 882 Output Total 3500 / 3500 670 / 670 Balance -2500 / -2500 330 / 330 882 / 882 Weight 87.8 kg Intake: IV 1000 / 1000 1000 / 1000 882 / 882 NS Inj 1,000 ML @ 100 mls/hr IV 1000 / 1000 1000 / 1000 882 / 882 .CONT .Q10H NOY Rx#:[id number] Output: Urine 3500 / 3500 670 / 670 Other: Date of Last Bowel Movement 05/11/18 05/12/18 # Bowel Movements 1 1 Results - Labs CBC & Chem 7: 05/12/18 03:25 05/12/18 03:25 Laboratory Results - last 24 hr 05/12/18 05/12/18 05/12/18 02:55 03:25 03:25 WBC 7.8 RBC 4.50 Hgb 13.9 Hct 39.9 MCV 88.7 MCH 30.8 MCHC 34.7 RDW 13.1 Plt Count 293 MPV 7.4 Neut % (Auto) 53.7 Lymph % (Auto) 37.2 [place] % (Auto) 6.3 Eos % (Auto) 1.9 Baso % (Auto) 0.9 Neut # (Auto) 4.2 Lymph # (Auto) 2.9 [place] # (Auto) 0.5 Eos # (Auto) 0.1 Baso # (Auto) 0.1 WBC Differential . Differential Comment Auto diff final Sodium Potassium Chloride Carbon Dioxide Anion Gap BUN Creatinine Estimated GFR POC Glucose 99 Random Glucose Lactic Acid 1.4 Calcium Total Bilirubin AST ALT Alkaline Phosphatase Total Protein Albumin 05/12/18 05/12/18 03:25 11:37 WBC RBC Hgb Hct MCV MCH MCHC RDW Plt Count MPV Neut % (Auto) Lymph % (Auto) [place] % (Auto) Eos % (Auto) Baso % (Auto) Neut # (Auto) Lymph # (Auto) [place] # (Auto) Eos # (Auto) Baso # (Auto) WBC Differential Differential Comment Sodium 143 Potassium 3.9 Chloride 106 Carbon Dioxide 26.5 Anion Gap 11 BUN 16 Creatinine 1.56 H Estimated GFR 52 L POC Glucose 100 Random Glucose 98 Lactic Acid Calcium 8.9 Total Bilirubin 0.1 L AST 20 ALT 37 Alkaline Phosphatase 65 Total Protein 7.3 Albumin 3.6 Assessment and Plan - Plan Status epilepticus- recurrent Breakthrough SZ- x 2 in 2 am and now - last 8 hours Seizure disorder vs pseudoseizures Depression disorder NOS - SZ shawna rthis 2 am- 4 mg IV Ativan given. good sats, good air entry - recurrent sz now with twitiching of the eyes, no gag - patient rigid- given 2 mg IV ativan- BS good - transfer to [facility]- water registrar consult - stat labs, keppra level, CBC, CMP - d/w Dr. Page- get a stat head CT -Continue Keppra and Vimpat per neurology. Keppra dose was increased. -CT brain revealed no acute intracranial findings. MRI negative. -EEG read pending. -neuro checks, seizure precautions. - will need NGT Right shoulder pain- not assessed today- due to acute SZ episode Chronic. X ray unremarkable. -outpt PT recommended. -pain control as needed with Tylenol and ibuprofen. History of right lower lobe PE 2016 -Nasal cannula to maintain saturations greater than or equal to 92% -Incentive spirometry while awake -DuoNeb aerosols every 2 hours as needed for dyspnea transfer to [facility] service- d/w Dr. fowler
[2018-05-12 11:59] LABS: ABG Base Excess -0.9 mmol/L (-2-2); ABG PCO2 38 mmHg (38-42); ABG PO2 92 mmHg (61-120)
[2018-05-12] MEDS ORDERED: Midazolam Inj 5 MG/ML 1 ML Vial ONE ×2 (12:14→12:20)
--- NOTE | 2018-05-12 12:29 | P.PNCC ---
Subjective Subjective Remarks/Hospital Course: Patient 33-year-old male history of seizure disorder versus pseudoseizures brought to the ED for seizure activity. Patient is on Keppra and Vimpat. Allergic to multiple seizure medications. Today patient had seizures while in police custody. Mostly tonic-clonic received Versed 2 mg IM x2 by EMS. In the emergency department he had multiple episodes of seizure and received total 4 mg IV Ativan. Described as mostly tonic activity. Patient was recently admitted to the ICU and had workup for seizures, EEG and MRI were negative at that time. I evaluated the patient in the ED. he appears slightly lethargic but not having seizures at this time. He received 4 mg of IV Ativan in the ED, and was loaded with IV Keppra 1000 mg. Patient will be admitted to ICU will be placed back on first home dose of patent Keppra. 05/12: Status seizures and return to [facility] for control when refractory to intermittent Ativan and Dilantin dosing. Patient is loaded with Vimpat and Keppra, new increased dose of the latter. With return to [facility], it was noticed that seizures never ceased but intermittently became less tonic in nature. Objective Vital Signs / I&O: Vital Signs 05/11/18 13:00 05/11/18 13:01 05/11/18 14:00 Temperature Pulse Rate 74 76 64 Respiratory Rate 21 23 20 Blood Pressure 125/71 124/72 Pulse Oximetry 96 97 97 05/11/18 15:00 05/11/18 16:00 05/11/18 17:00 Temperature Pulse Rate 82 81 78 Respiratory Rate 16 20 29 H Blood Pressure 124/72 122/59 L 119/62 Pulse Oximetry 96 96 95 05/11/18 18:00 05/11/18 20:00 05/11/18 21:35 Temperature 98 F Pulse Rate 82 76 82 Respiratory Rate 24 18 Blood Pressure 127/68 143/78 H Pulse Oximetry 97 97 05/12/18 00:00 05/12/18 04:00 05/12/18 08:00 Temperature 98.2 F 97.7 F 98 F Pulse Rate 78 91 H 80 Respiratory Rate 18 18 18 Blood Pressure 135/96 H 119/69 106/64 Pulse Oximetry 99 96 98 Intake & Output 05/11/18 05/12/18 05/12/18 18:59 06:59 18:59 Intake Total 1000 / 1000 1000 / 1000 882 / 882 Output Total 3500 / 3500 670 / 670 Balance -2500 / -2500 330 / 330 882 / 882 Weight 87.8 kg Intake: IV 1000 / 1000 1000 / 1000 882 / 882 NS Inj 1,000 ML @ 100 mls/hr IV 1000 / 1000 1000 / 1000 882 / 882 .CONT .Q10H NOY Rx#:[id number] Output: Urine 3500 / 3500 670 / 670 Other: Date of Last Bowel Movement 05/11/18 05/12/18 # Bowel Movements 1 1 Result Diagrams: 05/12/18 03:25 05/12/18 03:25 Objective Remarks: Head: Normal Neck: Rigid, airway patent with snoring Lungs: Clear Heart: RRR Abdoemn: Benign. Extremities: Rigid legs in extension Neuro: Pupils 3 mm, horizontal nystagmus. Rigid lowers. Crescendo seizures despite ativan and versed. Assessment and Plan - Problem List (1) Status epilepticus Code(s): G40.901 - Epilepsy, unspecified, not intractable, with status epilepticus Status: Acute (2) Seizure Code(s): R56.9 - Unspecified convulsions Status: Acute (3) Depression Code(s): F32.9 - Major depressive disorder, single episode, unspecified Status : Chronic (4) Respiratory failure requiring intubation Code(s): J96.90 - Respiratory failure, unspecified, unspecified whether with hypoxia or hypercapnia Status: Acute (5) Encephalopathy, metabolic Code(s): G93.41 - Metabolic encephalopathy Status: Acute - Assessment and Plan Plan: Plan: Neuro/Psych: Status epilepticus 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 Will repeat EEG -CT brain revealed no acute intracranial findings -Recurrent status 05/12 -> intubation -Encephalopathy CV: -Close hemodynamic monitoring -On normal saline at 100 cc an hour. Resp: History of right lower lobe PE 2016 -Nasal cannula to maintain saturations greater than or equal to 92% -Incentive spirometry while awake -DuoNeb aerosols every 2 hours as needed for dyspnea -Mechanical ventilation -Encephalopathy GI: -Regular diet once seizure control -Bowel regimen if needed -Nasogastric tube for meds and tube feeding Endo: -Electrolyte replacement per protocol Renal: -Monitor urine output -Accurate I's and O's -Creatinine currently within normal limits Heme: -Monitor CBC coags ID: -No evidence of any infection at this time FEN: -Replace electrolytes as clinically indicated per protocol Access -Utilize peripheral IV. Prophylaxis -GI -Famotidine -DVT -SCD/Lovenox Right shoulder pain Chronic. X ray unremarkable. -outpt PT recommended. -pain control as needed with Tylenol and ibuprofen. PPx: SCDs /Lovenox Discharge Planning: Overall impression: This gentleman developed generalized tonic seizures, refractory to Ativan and Versed multiple doses. He intermittently would stop seizing for 1 or 2 minutes but went right back into generalized tonic seizure activity. He is critically ill and now requires intubation and mechanical ventilation for more aggressive seizure control. The neurology service is aware of his Elder and it. Critical care 60 minutes aside from invasive procedures.
[2018-05-12] MEDS ORDERED: Midazolam 50 MG/50 ML Inj 50 MG/50 ML BAG IV.CONT PRN (12:44)
--- NOTE | 2018-05-12 12:58 | P.PCN ---
Procedure: Diagnosis: Acute respiratory failure Procedure: Orotracheal intubation with #8 tube Narrative: Patient in status epilepticus requiring airway control. Gentle bag mask ventilation. Patient administered 10 mg of Versed and 5 mg increments. Usual ICU monitoring devices in place. Rocuronium 100 mg administered IV. Intubated in the orotracheal route with #8 endotracheal tube. Position confirmed with CO2 detection, bilateral breath sounds, oxygen saturation 100%. Tube fastened in place with a Lucien attachment. Chest x- ray is ordered, will review.
[2018-05-12] MEDS ORDERED: Midazolam Inj 5 MG/ML 1 ML Vial IV.PUSH ONE (13:15)
[2018-05-12 13:47] LABS: Baso # (Auto) 0.1 th/mm3 (0.0-0.2); Eos # (Auto) 0.1 th/mm3 (0.0-0.4); Eos % (Auto) 1.3 % (0.0-4.0); Hematocrit 44.4 % (39.0-51.0); Hemoglobin 15.2 gm/dL (13.0-17.0); Lymph # (Auto) 1.5 th/mm3 (1.0-4.8); Lymph % (Auto) 23.6 % (9.0-44.0); Mean Corpuscular HGB Conc 34.1 % (32.0-36.0); Mean Corpuscular Hemoglobin 30.5 pg (27.0-34.0); Mean Corpuscular Volume 89.3 fL (80.0-100.0); Mean Platelet Volume 7.7 fL (7.0-11.0); Mono # (Auto) 0.4 th/mm3 (0.0-0.9); Mono % (Auto) 6.3 % (0.0-8.0); Neut # (Auto) 4.3 th/mm3 (1.8-7.7); Neut % (Auto) 67.8 % (16.0-70.0); Platelet Count 303 th/mm3 (150-450); Red Blood Count 4.97 mil/mm3 (4.50-5.90); Red Cell Distribution Width 13.4 % (11.6-17.2); White Blood Count 6.3 th/mm3 (4.0-11.0)
[2018-05-12 13:49] LABS: ABG Base Excess -0.3 mmol/L (-2-2); ABG PCO2 39 mmHg (38-42); ABG PO2 110 mmHg (61-120)
[2018-05-12 14:06] LABS: Alanine Aminotransferase 44 U/L (12-78); Albumin 4.1 g/dL (3.4-5.0); Anion Gap 8 meq/L (5-15); Aspartate Aminotransferase 20 U/L (15-37); Blood Urea Nitrogen 15 mg/dL (7-18); Calcium 9.1 mg/dL (8.5-10.1); Carbon Dioxide 27.7 meq/L (21.0-32.0); Chloride 105 meq/L (98-107); Glomerular Filtration Rate 80 mL/min (>89); Glucose,Random 96 mg/dL (74-106); Potassium 3.9 meq/L (3.5-5.1); Sodium 141 meq/L (136-145)
[2018-05-12 14:08] LABS: Alkaline Phosphatase 68 U/L (45-117); Total Protein 8.1 g/dL (6.4-8.2)
--- NOTE | 2018-05-12 14:11 | CT ---
EXAM DATE: 05/12/2018 1:46 PM EDT AGE/SEX: 33 years / Male INDICATIONS: Seizure. CLINICAL DATA: This is the patient's initial encounter. Patient reports that signs and symptoms have been present for 1 day and indicates a pain score of Nonresponsive. MEDICAL/SURGICAL HISTORY: Non-responsive. Non-responsive. RADIATION DOSE: 56.35 CTDI (mGy) COMPARISON: [facility] – [place], CT HEAD W/O CONTRAST, 04/25/2018. [facility] [place], CT HEAD W/O CONTRAST, 05/09/2018. . TECHNIQUE: CT of the head without contrast. Using automated exposure control and adjustment of the mA and/or kV according to patient size, radiation dose was kept as low as reasonably achievable to ob tain optimal diagnostic quality images. DICOM format image data is available electronically for revi ew and comparison. FINDINGS: Cerebrum: The ventricles are normal for age. No evidence of midline shift, mass lesion, hemorrhage or acute infarction. No extraaxial fluid collections are seen. Posterior Fossa: The cerebellum and brainstem are intact. The 4th ventricle is midline. The cerebe llopontine angle is unremarkable. Extracranial: The visualized portion of the orbits is intact. Skull: The calvaria is intact. No evidence of skull fracture. No significant changes compared to the prior examinations. CONCLUSION: 1. Unremarkable and stable CT scan of the brain. . Electronically signed by: Edy Hall MD 05/12/2018 2:10 PM EDT
[2018-05-12] MEDS: Propofol 1000 mg/100 ml Inj 1,000 MG/100 ML BOTTLE IV.CONT PRN ×2 (14:12→18:24)
[2018-05-12] MEDS: Midazolam 50 MG/50 ML Inj 50 MG/50 ML BAG IV.CONT PRN ×2 (15:38→19:57)
--- NOTE | 2018-05-12 16:31 | XR ---
EXAM DATE: 05/12/2018 3:23 PM EDT AGE/SEX: 33 years / Male INDICATIONS: S/P ET tube placement and OG placement. CLINICAL DATA: This is the patient's initial encounter. Patient reports that signs and symptoms have been present for 1 day and indicates a pain score of Nonresponsive. MEDICAL/SURGICAL HISTORY: Non-responsive. Non-responsive. COMPARISON: [facility] [place], [place]ST 1V SINGLE AP, 04/28/2018. . FINDINGS: Status post placement of an endotracheal tube. The tip is approximately 1 cm above the lisha. There is an NG tube in stomach. There is no evidence of pneumothorax. There is a mild infiltrate in the rig ht hilar area. The heart size is within normal limits. No evidence of any definite pleural effusions. The bony structures are grossly intact. CONCLUSION: 1. The endotracheal tube and NG tube appear to be in good position. 2. No evidence of pneumothorax. Electronically signed by: Edy Hall MD 05/12/2018 4:29 PM EDT
[2018-05-12] MEDS: Enoxaparin Inj 40 MG/0.4 ML Syringe SQ SCH (17:41)
[2018-05-13] MEDS: Midazolam 50 MG/50 ML Inj 50 MG/50 ML BAG IV.CONT PRN ×5 (01:23→21:55)
[2018-05-13] MEDS: Propofol 1000 mg/100 ml Inj 1,000 MG/100 ML BOTTLE IV.CONT PRN ×4 (01:41→21:54)
[2018-05-13] MEDS ORDERED: Chlorhexidine Gluconate 2% 1 Pack (2 Cloths) TOPICAL PRN (04:00)
[2018-05-13] MEDS: Chlorhexidine Gluconate 2% 1 Pack (2 Cloths) TOPICAL SCH ×2 (05:02)
[2018-05-13 05:03] LABS: Baso # (Auto) 0.1 th/mm3 (0.0-0.2); Baso % (Auto) 0.5 % (0.0-2.0); Eos # (Auto) 0.1 th/mm3 (0.0-0.4); Eos % (Auto) 1.1 % (0.0-4.0); Hematocrit 40.7 % (39.0-51.0); Hemoglobin 13.8 gm/dL (13.0-17.0); Lymph # (Auto) 2.1 th/mm3 (1.0-4.8); Lymph % (Auto) 18.7 % (9.0-44.0); Mean Corpuscular HGB Conc 34.1 % (32.0-36.0); Mean Corpuscular Hemoglobin 30.8 pg (27.0-34.0); Mean Corpuscular Volume 90.3 fL (80.0-100.0); Mean Platelet Volume 7.6 fL (7.0-11.0); Mono # (Auto) 0.6 th/mm3 (0.0-0.9); Mono % (Auto) 5.2 % (0.0-8.0); Neut # (Auto) 8.5 th/mm3 (1.8-7.7); Neut % (Auto) 74.5 % (16.0-70.0); Platelet Count 289 th/mm3 (150-450); Red Cell Distribution Width 13.6 % (11.6-17.2); White Blood Count 11.5 th/mm3 (4.0-11.0)
[2018-05-13] MEDS: Sod Chloride 0.9% Inj 1,000 ML IV.CONT SCH ×4 (05:03→21:54)
[2018-05-13 05:28] LABS: Alkaline Phosphatase 66 U/L (45-117); Total Protein 7.3 g/dL (6.4-8.2)
[2018-05-13 05:29] LABS: Alanine Aminotransferase 52 U/L (12-78); Albumin 3.7 g/dL (3.4-5.0); Anion Gap 10 meq/L (5-15); Aspartate Aminotransferase 31 U/L (15-37); Blood Urea Nitrogen 15 mg/dL (7-18); Calcium 8.6 mg/dL (8.5-10.1); Carbon Dioxide 24.2 meq/L (21.0-32.0); Chloride 109 meq/L (98-107); Glomerular Filtration Rate Greater Than 89 mL/min (>89); Glucose,Random 86 mg/dL (74-106); Magnesium 2.1 mg/dL (1.5-2.5); Potassium 3.9 meq/L (3.5-5.1); Sodium 143 meq/L (136-145)
--- NOTE | 2018-05-13 07:05 | MG ---
cc: Marcio Zuleta MD, PhD REFERRING PHYSICIAN: Dr. Linares AKA: Julian Herrera TECHNIQUE: This is a 17-channel EEG. DESCRIPTION: Background rhythm is symmetrical alpha frequency, 8-9 Hz. Amplitude is 20-30 microvolts. Some muscle artifact is identified during drowsiness. There was mild slowing in the theta range. There are no epileptiform features. There are no lateralizing features seen. Photic results in a normal driving response. Hyperventilation was not done. INTERPRETATION: Normal electroencephalogram. Marcio Zuleta MD, PhD LUCÍA/lh , 02:22 PM , 02:26 PM
[2018-05-13] MEDS: Lacosamide 50 MG Tablet PO SCH (08:07)
[2018-05-13] MEDS: Senna/Docusate Sodium 8.6/50 MG Tablet PO SCH ×2 (08:07→20:06)
[2018-05-13] MEDS: Famotidine 20 MG Tablet PO SCH ×2 (08:07→20:06)
[2018-05-13] MEDS: Polyethylene Glycol 3350 17 GM Packet PO SCH ×2 (08:07→20:06)
--- NOTE | 2018-05-13 10:47 | P.PN ---
Subjective Interval history: intubated sedated Physical Exam Vital signs: Vital Signs 05/12/18 12:00 05/12/18 12:49 05/12/18 13:00 Temperature 97.9 F Pulse Rate 104 H 108 H Respiratory Rate 16 16 Blood Pressure 139/96 H Pulse Oximetry 98 98 05/12/18 14:00 05/12/18 14:25 05/12/18 15:00 Temperature Pulse Rate 80 80 Respiratory Rate 16 Blood Pressure 109/60 109/60 Pulse Oximetry 100 05/12/18 15:37 05/12/18 16:00 05/12/18 20:00 Temperature 97.5 F L Pulse Rate 69 70 Respiratory Rate 21 17 Blood Pressure 96/56 L 138/98 H Pulse Oximetry 99 05/12/18 22:38 05/13/18 00:00 05/13/18 01:42 Temperature 98.5 F Pulse Rate 16 L Respiratory Rate 18 16 Blood Pressure 102/64 Pulse Oximetry 100 99 05/13/18 04:00 05/13/18 04:07 05/13/18 08:00 Temperature 98 F 97.4 F L Pulse Rate 21 L 59 L Respiratory Rate 16 16 Blood Pressure 116/72 128/84 Pulse Oximetry 100 100 05/13/18 09:32 Temperature Pulse Rate Respiratory Rate 16 Blood Pressure Pulse Oximetry 100 Intake & Output 05/12/18 05/13/18 05/13/18 18:59 06:59 18:59 Intake Total 1981 1300 / 1300 1255 / 1255 Output Total 1000 / 1000 Balance 1981 300 / 300 1255 / 1255 Weight 83.1 kg Intake: IV 1981 1300 / 1300 1255 / 1255 Versed Inj 50 mg In 50 ml @ 2 200 / 200 50 / 50 MG/HR 2 mls/hr IV.CONT TITRATE PRN Rx#:[id number] Diprivan 1000 mg/100 ml Inj 1, 100 / 100 100 / 100 100 / 100 000 mg In 100 ml @ 5 MCG/KG/MIN 2.634 mls/hr IV.CONT TITRATE PRN Rx#:[id number] NS Inj 1,000 ML @ 100 mls/hr IV 1882 / 1882 1000 / 1000 1000 / 1000 .CONT .Q10H NOY Rx#:[id number] Keppra Inj 500 MG In NS Inj 100 105 / 105 ML @ 400 mls/hr IV.SIG TID [facility] Rx#:[id number] Output: Urine Amount (Catheter) 1000 / 1000 Straight 1000 / 1000 Other: Post Void Residual 900 Date of Last Bowel Movement 05/12/18 Narrative: intubated sedated no active sz's seen pupils 2-1 mm b/l not following commands - Urinary Catheter Management Straight Cath placed during this visit: no Results - Labs CBC & Chem 7: 05/13/18 04:37 05/13/18 04:37 Laboratory Results - last 24 hr 05/12/18 05/12/18 05/12/18 10:34 11:37 13:19 WBC 6.3 RBC 4.97 Hgb 15.2 Hct 44.4 MCV 89.3 MCH 30.5 MCHC 34.1 RDW 13.4 Plt Count 303 MPV 7.7 Neut % (Auto) 67.8 Lymph % (Auto) 23.6 [place] % (Auto) 6.3 Eos % (Auto) 1.3 Baso % (Auto) 1.0 Neut # (Auto) 4.3 Lymph # (Auto) 1.5 [place] # (Auto) 0.4 Eos # (Auto) 0.1 Baso # (Auto) 0.1 WBC Differential . Differential Comment Auto diff final Puncture Site Right radial Patient Temperature 98.6 O2 Saturation 96 ABG pH 7.40 ABG pCO2 38 ABG pO2 92 ABG HCO3 23 ABG O2 Content 19.2 ABG Base Excess -0.9 ABG Methemoglobin 0.5 [place] Test Present Hemoglobin 14.2 Carboxyhemoglobin 1.0 O2 Delivery Device Ra Vent Setting Inspired O2 21 Critical Value No Sodium Potassium Chloride Carbon Dioxide Anion Gap BUN Creatinine Estimated GFR POC Glucose 100 Random Glucose Calcium Phosphorus Magnesium Total Bilirubin AST ALT Alkaline Phosphatase Total Protein Albumin 05/12/18 05/12/18 05/13/18 13:19 13:42 04:37 WBC 11.5 H D RBC 4.50 Hgb 13.8 Hct 40.7 MCV 90.3 MCH 30.8 MCHC 34.1 RDW 13.6 Plt Count 289 MPV 7.6 Neut % (Auto) 74.5 H Lymph % (Auto) 18.7 [place] % (Auto) 5.2 Eos % (Auto) 1.1 Baso % (Auto) 0.5 Neut # (Auto) 8.5 H Lymph # (Auto) 2.1 [place] # (Auto) 0.6 Eos # (Auto) 0.1 Baso # (Auto) 0.1 WBC Differential . Differential Comment Auto diff final Puncture Site Right radial Patient Temperature 98.6 O2 Saturation 96 ABG pH 7.41 ABG pCO2 39 ABG pO2 110 ABG HCO3 24 ABG O2 Content 19.8 ABG Base Excess -0.3 ABG Methemoglobin 1.1 [place] Test Present Hemoglobin 14.6 Carboxyhemoglobin 1.1 O2 Delivery Device Ventilator Vent Setting Inspired O2 50 Critical Value No Sodium 141 Potassium 3.9 Chloride 105 Carbon Dioxide 27.7 Anion Gap 8 BUN 15 Creatinine 1.06 Estimated GFR 80 L POC Glucose Random Glucose 96 Calcium 9.1 Phosphorus Magnesium Total Bilirubin 0.2 AST 20 ALT 44 Alkaline Phosphatase 68 Total Protein 8.1 D Albumin 4.1 05/13/18 04:37 WBC RBC Hgb Hct MCV MCH MCHC RDW Plt Count MPV Neut % (Auto) Lymph % (Auto) [place] % (Auto) Eos % (Auto) Baso % (Auto) Neut # (Auto) Lymph # (Auto) [place] # (Auto) Eos # (Auto) Baso # (Auto) WBC Differential Differential Comment Puncture Site Patient Temperature O2 Saturation ABG pH ABG pCO2 ABG pO2 ABG HCO3 ABG O2 Content ABG Base Excess ABG Methemoglobin [place] Test Hemoglobin Carboxyhemoglobin O2 Delivery Device Vent Setting Inspired O2 Critical Value Sodium 143 Potassium 3.9 Chloride 109 H Carbon Dioxide 24.2 Anion Gap 10 BUN 15 Creatinine 0.94 Estimated GFR Greater than 89 POC Glucose Random Glucose 86 Calcium 8.6 Phosphorus 3.0 Magnesium 2.1 Total Bilirubin 0.2 AST 31 ALT 52 Alkaline Phosphatase 66 Total Protein 7.3 D Albumin 3.7 - Imaging Impressions Head CT 05/12/18 12:11 CONCLUSION: 1. Unremarkable and stable CT scan of the brain. . Chest X-Ray 05/12/18 15:23 CONCLUSION: 1. The endotracheal tube and NG tube appear to be in good position. 2. No evidence of pneumothorax. Assessment and Plan - Plan f/u eeg increase keppra to 1500 mg bid if GFR stay normal. increase vimpat 200 mg bid sz precautions monitor kidney numbers.
--- NOTE | 2018-05-13 14:25 | P.PNCC ---
Subjective Subjective Remarks/Hospital Course: Patient 33-year-old male history of seizure disorder versus pseudoseizures brought to the ED for seizure activity. Patient is on Keppra and Vimpat. Allergic to multiple seizure medications. Today patient had seizures while in police custody. Mostly tonic-clonic received Versed 2 mg IM x2 by EMS. In the emergency department he had multiple episodes of seizure and received total 4 mg IV Ativan. Described as mostly tonic activity. Patient was recently admitted to the ICU and had workup for seizures, EEG and MRI were negative at that time. I evaluated the patient in the ED. he appears slightly lethargic but not having seizures at this time. He received 4 mg of IV Ativan in the ED, and was loaded with IV Keppra 1000 mg. Patient will be admitted to ICU will be placed back on first home dose of patent Keppra. 05/12: Status seizures and return to [facility] for control when refractory to intermittent Ativan and Dilantin dosing. Patient is loaded with Vimpat and Keppra, new increased dose of the latter. With return to [facility], it was noticed that seizures never ceased but intermittently became less tonic in nature. 05/13: Twitching activity when sedation lightened. Neurology service has increased Keppra and Vimpat dosing. We will try to lighten again when new drug levels are a established. Objective Vital Signs / I&O: Vital Signs 05/12/18 14:25 05/12/18 15:00 05/12/18 15:37 Temperature Pulse Rate 80 Respiratory Rate 21 Blood Pressure 109/60 Pulse Oximetry 100 99 05/12/18 16:00 05/12/18 20:00 05/12/18 22:38 Temperature 97.5 F L Pulse Rate 69 70 Respiratory Rate 17 18 Blood Pressure 96/56 L 138/98 H Pulse Oximetry 100 05/13/18 00:00 05/13/18 01:42 05/13/18 04:00 Temperature 98.5 F 98 F Pulse Rate 16 L 21 L Respiratory Rate 16 Blood Pressure 102/64 116/72 Pulse Oximetry 99 05/13/18 04:07 05/13/18 08:00 05/13/18 09:32 Temperature 97.4 F L Pulse Rate 59 L Respiratory Rate 16 16 16 Blood Pressure 128/84 Pulse Oximetry 100 100 100 05/13/18 12:06 Temperature Pulse Rate Respiratory Rate 16 Blood Pressure Pulse Oximetry 99 Intake & Output 05/12/18 05/13/18 05/13/18 18:59 06:59 18:59 Intake Total 1981 1300 / 1300 1255 / 1255 Output Total 1000 / 1000 Balance 1981 300 / 300 1255 / 1255 Weight 83.1 kg Intake: IV 1981 1300 / 1300 1255 / 1255 Versed Inj 50 mg In 50 ml @ 2 200 / 200 50 / 50 MG/HR 2 mls/hr IV.CONT TITRATE PRN Rx#:[id number] Diprivan 1000 mg/100 ml Inj 1, 100 / 100 100 / 100 100 / 100 000 mg In 100 ml @ 5 MCG/KG/MIN 2.634 mls/hr IV.CONT TITRATE PRN Rx#:[id number] NS Inj 1,000 ML @ 100 mls/hr IV 1882 / 1882 1000 / 1000 1000 / 1000 .CONT .Q10H NOY Rx#:[id number] Keppra Inj 500 MG In NS Inj 100 105 / 105 ML @ 400 mls/hr IV.SIG TID NOY Rx#:[id number] Output: Urine Amount (Catheter) 1000 / 1000 Straight 1000 / 1000 Other: Post Void Residual 900 Date of Last Bowel Movement 05/12/18 Result Diagrams: 05/13/18 04:37 05/13/18 04:37 Objective Remarks: Head: Normal Neck: Supple, orotracheal intubation. Lungs: Clear, no adventitious sounds. Good bilateral air movement. Heart: RRR, normal S1-S2, no JVD. Abdoemn: Benign. Soft, no guarding, bowel sounds present Extremities: Warm, well-perfused Neuro: Pupils 2 mm and reactive to light. Seen to move 4 extremities when sedation lightened. Twitching suspicious for seizure activity noticed when sedation lightened. Assessment and Plan - Problem List (1) Status epilepticus Code(s): G40.901 - Epilepsy, unspecified, not intractable, with status epilepticus Status: Acute (2) Seizure Code(s): R56.9 - Unspecified convulsions Status: Acute (3) Depression Code(s): F32.9 - Major depressive disorder, single episode, unspecified Status : Chronic (4) Respiratory failure requiring intubation Code(s): J96.90 - Respiratory failure, unspecified, unspecified whether with hypoxia or hypercapnia Status: Acute (5) Encephalopathy, metabolic Code(s): G93.41 - Metabolic encephalopathy Status: Acute - Assessment and Plan Plan: Plan: Neuro/Psych: Status epilepticus 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 Will repeat EEG -CT brain revealed no acute intracranial findings -Recurrent status 05/12 -> intubation -Encephalopathy -Increase Vimpat and Keppra dosing CV: -Close hemodynamic monitoring -On normal saline at 100 cc an hour. Resp: History of right lower lobe PE 2016 -Nasal cannula to maintain saturations greater than or equal to 92% -Incentive spirometry while awake -DuoNeb aerosols every 2 hours as needed for dyspnea -Mechanical ventilation -Encephalopathy GI: -Regular diet once seizure control -Bowel regimen if needed -Nasogastric tube for meds and tube feeding Endo: -Electrolyte replacement per protocol Renal: -Monitor urine output -Accurate I's and O's -Creatinine currently within normal limits Heme: -Monitor CBC coags ID: -No evidence of any infection at this time FEN: -Replace electrolytes as clinically indicated per protocol Access -Utilize peripheral IV. Prophylaxis -GI -Famotidine -DVT -SCD/Lovenox Right shoulder pain Chronic. X ray unremarkable. -outpt PT recommended. -pain control as needed with Tylenol and ibuprofen. PPx: SCDs /Lovenox Discharge Planning: Overall impression: This gentleman developed generalized tonic seizures, refractory to Ativan and Versed. Following intubation and sedation with continuous infusion propofol and Versed the seizing appears to have stopped. We will repeat his EEG to rule out nonconvulsive seizure activity. Patient remains critically ill and is being treated for status epilepticus. His neurologic status remains unstable. Critical care 37 minutes aside from invasive procedures.
[2018-05-13] MEDS: Enoxaparin Inj 40 MG/0.4 ML Syringe SQ SCH (17:55)
[2018-05-13] MEDS: Lacosamide 100 MG Tablet PO SCH (20:06)
--- NOTE | 2018-05-13 20:31 | MG ---
cc: Kennedi Carvajal MD AGE: [age] years old. EEG NUMBER: [id number] INDICATIONS: I am requesting reading in room 1311 with photic done on 30 mcg of propofol and 8 mcg of Versed, intubated. EEG 05/10/[address] negative. Admitted with seizures, currently on Keppra and Vimpat. DESCRIPTION OF RECORD: There is overall slowing of background prominent theta frequency, 6-7 Hz, at times somewhat disorganized. There may be some artifact superimposed from the ICU. No appreciable epileptiform features. EKG is sinus. Photic stimulation without any significant driving response. IMPRESSION: Some mild slowing that can be seen with sedation, but no epileptiform features. Clinical correlation. Kennedi Carvajal MD DF/sv , 07:48 PM , 07:52 PM
[2018-05-14] MEDS: Sod Chloride 0.9% Inj 1,000 ML IV.CONT SCH ×3 (01:05→19:54)
[2018-05-14] MEDS: Propofol 1000 mg/100 ml Inj 1,000 MG/100 ML BOTTLE IV.CONT PRN ×5 (01:20→22:09)
[2018-05-14] MEDS: Midazolam 50 MG/50 ML Inj 50 MG/50 ML BAG IV.CONT PRN ×2 (03:25→08:53)
[2018-05-14] MEDS: Chlorhexidine Gluconate 2% 1 Pack (2 Cloths) TOPICAL SCH ×2 (04:12)
[2018-05-14] MEDS: Acetaminophen 325 MG Tablet PO PRN (04:15)
[2018-05-14 06:27] LABS: White Blood Count 14.8 th/mm3 (4.0-11.0)
[2018-05-14 06:28] LABS: Baso % (Auto) 0.3 % (0.0-2.0); Eos # (Auto) 0.1 th/mm3 (0.0-0.4); Hematocrit 39.5 % (39.0-51.0); Hemoglobin 13.3 gm/dL (13.0-17.0); Lymph # (Auto) 1.5 th/mm3 (1.0-4.8); Lymph % (Auto) 10.4 % (9.0-44.0); Mean Corpuscular HGB Conc 33.8 % (32.0-36.0); Mean Corpuscular Hemoglobin 30.5 pg (27.0-34.0); Mean Corpuscular Volume 90.3 fL (80.0-100.0); Mean Platelet Volume 7.9 fL (7.0-11.0); Mono # (Auto) 0.8 th/mm3 (0.0-0.9); Mono % (Auto) 5.1 % (0.0-8.0); Neut # (Auto) 12.3 th/mm3 (1.8-7.7); Neut % (Auto) 83.2 % (16.0-70.0); Platelet Count 274 th/mm3 (150-450); Red Blood Count 4.38 mil/mm3 (4.50-5.90); Red Cell Distribution Width 13.9 % (11.6-17.2)
[2018-05-14 06:37] LABS: Anion Gap 12 meq/L (5-15); Blood Urea Nitrogen 10 mg/dL (7-18); Calcium 8.3 mg/dL (8.5-10.1); Carbon Dioxide 22.8 meq/L (21.0-32.0); Chloride 110 meq/L (98-107); Glomerular Filtration Rate Greater Than 89 mL/min (>89); Glucose,Random 97 mg/dL (74-106); Potassium 3.4 meq/L (3.5-5.1); Sodium 145 meq/L (136-145)
[2018-05-14] MEDS: Polyethylene Glycol 3350 17 GM Packet PO SCH ×2 (08:55→20:24)
[2018-05-14] MEDS: Famotidine 20 MG Tablet PO SCH ×2 (08:56→20:25)
[2018-05-14] MEDS: Senna/Docusate Sodium 8.6/50 MG Tablet PO SCH ×2 (08:56→20:25)
--- NOTE | 2018-05-14 11:03 | P.PNCC ---
Subjective Subjective Remarks/Hospital Course: Patient 33-year-old male history of seizure disorder versus pseudoseizures brought to the ED for seizure activity. Patient is on Keppra and Vimpat. Allergic to multiple seizure medications. Today patient had seizures while in police custody. Mostly tonic-clonic received Versed 2 mg IM x2 by EMS. In the emergency department he had multiple episodes of seizure and received total 4 mg IV Ativan. Described as mostly tonic activity. Patient was recently admitted to the ICU and had workup for seizures, EEG and MRI were negative at that time. I evaluated the patient in the ED. he appears slightly lethargic but not having seizures at this time. He received 4 mg of IV Ativan in the ED, and was loaded with IV Keppra 1000 mg. Patient will be admitted to ICU will be placed back on first home dose of patent Keppra. 05/12: Status seizures and return to [facility] for control when refractory to intermittent Ativan and Dilantin dosing. Patient is loaded with Vimpat and Keppra, new increased dose of the latter. With return to [facility], it was noticed that seizures never ceased but intermittently became less tonic in nature. 05/13: Twitching activity when sedation lightened. Neurology service has increased Keppra and Vimpat dosing. We will try to lighten again when new drug levels are a established. 05/14: No seizures, will lighten sedation and try to work toward weaning ventilation Objective Vital Signs / I&O: Vital Signs 05/13/18 12:00 05/13/18 12:06 05/13/18 16:00 Temperature 97.9 F 98.1 F Pulse Rate 64 65 Respiratory Rate 16 16 16 Blood Pressure 102/59 L 106/67 Pulse Oximetry 99 99 99 05/13/18 18:00 05/13/18 19:06 05/13/18 20:00 Temperature 98.6 F Pulse Rate 72 90 Respiratory Rate 16 20 Blood Pressure 129/81 Pulse Oximetry 99 100 05/13/18 22:00 05/14/18 00:00 05/14/18 02:00 Temperature 97.9 F Pulse Rate 94 H 87 86 Respiratory Rate 17 Blood Pressure 147/95 H Pulse Oximetry 100 05/14/18 02:29 05/14/18 04:00 05/14/18 06:00 Temperature 102.1 F H Pulse Rate 102 H 68 Respiratory Rate 20 16 Blood Pressure 131/76 Pulse Oximetry 100 96 05/14/18 06:10 05/14/18 08:00 05/14/18 08:08 Temperature 98.4 F Pulse Rate 76 Respiratory Rate 16 16 16 Blood Pressure 103/60 Pulse Oximetry 98 95 98 Intake & Output 05/13/18 05/14/18 05/14/18 18:59 06:59 18:59 Intake Total 1615 / 1615 1400 / 1400 150 / 150 Output Total 1635 / 1635 1875 / 1875 Balance -20 / -20 -475 / -475 150 / 150 Weight 86.4 kg Intake: IV 1615 / 1615 1400 / 1400 150 / 150 Versed Inj 50 mg In 50 ml @ 2 100 / 100 100 / 100 50 / 50 MG/HR 2 mls/hr IV.CONT TITRATE PRN Rx#:[id number] Diprivan 1000 mg/100 ml Inj 1, 200 / 200 300 / 300 100 / 100 000 mg In 100 ml @ 5 MCG/KG/MIN 2.634 mls/hr IV.CONT TITRATE PRN Rx#:[id number] NS Inj 1,000 ML @ 100 mls/hr IV 1000 / 1000 1000 / 1000 .CONT .Q10H NOY Rx#:[id number] Keppra Inj 500 MG In NS Inj 100 315 / 315 ML @ 400 mls/hr IV.SIG TID NOY Rx#:[id number] Output: Urine Amount (Catheter) 1625 / 1625 1875 / 1875 Straight 1625 / 1625 1875 / 1875 Gastric Drainage Oral Orogastric Tube Result Diagrams: 05/14/18 05:20 05/14/18 05:20 Objective Remarks: Head: Normal Neck: Supple, orotracheal intubation. Lungs: Clear, no adventitious sounds. Good bilateral air movement. Heart: RRR, normal S1-S2, no JVD. Abdoemn: Benign. Soft, no guarding, bowel sounds present Extremities: Warm, well-perfused Neuro: Pupils 2 mm and reactive to light. Seen to move 4 extremities when sedation lightened. Twitching suspicious for seizure activity noticed when sedation lightened. Assessment and Plan - Problem List (1) Status epilepticus Code(s): G40.901 - Epilepsy, unspecified, not intractable, with status epilepticus Status: Acute (2) Seizure Code(s): R56.9 - Unspecified convulsions Status: Acute (3) Depression Code(s): F32.9 - Major depressive disorder, single episode, unspecified Status : Chronic (4) Respiratory failure requiring intubation Code(s): J96.90 - Respiratory failure, unspecified, unspecified whether with hypoxia or hypercapnia Status: Acute (5) Encephalopathy, metabolic Code(s): G93.41 - Metabolic encephalopathy Status: Acute - Assessment and Plan Plan: Plan: Neuro/Psych: Status epilepticus 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 Will repeat EEG -CT brain revealed no acute intracranial findings -Recurrent status 05/12 -> intubation -Encephalopathy -Increase Vimpat and Keppra dosing CV: -Close hemodynamic monitoring -On normal saline at 100 cc an hour. Resp: History of right lower lobe PE 2016 -Nasal cannula to maintain saturations greater than or equal to 92% -Incentive spirometry while awake -DuoNeb aerosols every 2 hours as needed for dyspnea -Mechanical ventilation -Encephalopathy -Start spontaneous breathing trials GI: -Regular diet once seizure control -Bowel regimen if needed -Nasogastric tube for meds and tube feeding Endo: -Electrolyte replacement per protocol Renal: -Monitor urine output -Accurate I's and O's -Creatinine currently within normal limits Heme: -Monitor CBC coags ID: -No evidence of any infection at this time FEN: -Replace electrolytes as clinically indicated per protocol Access -Utilize peripheral IV. Prophylaxis -GI -Famotidine -DVT -SCD/Lovenox Right shoulder pain Chronic. X ray unremarkable. -outpt PT recommended. -pain control as needed with Tylenol and ibuprofen. PPx: SCDs /Lovenox Discharge Planning: Overall impression: This gentleman developed generalized tonic seizures, refractory to Ativan and Versed. Following intubation and sedation with continuous infusion propofol and Versed the seizing has stopped. Patient remains critically ill and is being treated for status epilepticus. His neurologic status remains unstable. Wean intravenous sedation slowly and observe for new seizure activity. Critical care 38 minutes aside from procedures.
[2018-05-14] MEDS: Lacosamide 100 MG Tablet PO SCH ×2 (11:20→20:24)
[2018-05-14] MEDS: Enoxaparin Inj 40 MG/0.4 ML Syringe SQ SCH (17:09)
[2018-05-15] MEDS: Propofol 1000 mg/100 ml Inj 1,000 MG/100 ML BOTTLE IV.CONT PRN ×2 (01:28→05:13)
[2018-05-15] MEDS: Chlorhexidine Gluconate 2% 1 Pack (2 Cloths) TOPICAL SCH (04:35)
[2018-05-15 05:06] LABS: Baso % (Auto) 0.3 % (0.0-2.0); Eos # (Auto) 0.1 th/mm3 (0.0-0.4); Eos % (Auto) 0.4 % (0.0-4.0); Hemoglobin 13.9 gm/dL (13.0-17.0); Lymph # (Auto) 1.3 th/mm3 (1.0-4.8); Lymph % (Auto) 8.9 % (9.0-44.0); Mean Corpuscular HGB Conc 34.9 % (32.0-36.0); Mean Corpuscular Hemoglobin 30.9 pg (27.0-34.0); Mean Corpuscular Volume 88.7 fL (80.0-100.0); Mean Platelet Volume 8.1 fL (7.0-11.0); Mono # (Auto) 0.9 th/mm3 (0.0-0.9); Neut # (Auto) 12.4 th/mm3 (1.8-7.7); Neut % (Auto) 84.4 % (16.0-70.0); Platelet Count 246 th/mm3 (150-450); Red Blood Count 4.51 mil/mm3 (4.50-5.90); Red Cell Distribution Width 13.5 % (11.6-17.2); White Blood Count 14.7 th/mm3 (4.0-11.0)
[2018-05-15 05:23] LABS: Anion Gap 13 meq/L (5-15); Blood Urea Nitrogen 7 mg/dL (7-18); Calcium 8.6 mg/dL (8.5-10.1); Carbon Dioxide 22.3 meq/L (21.0-32.0); Chloride 109 meq/L (98-107); Glomerular Filtration Rate Greater Than 89 mL/min (>89); Glucose,Random 90 mg/dL (74-106); Potassium 3.7 meq/L (3.5-5.1); Sodium 144 meq/L (136-145)
[2018-05-15] MEDS: Sod Chloride 0.9% Inj 1,000 ML IV.CONT SCH (06:14)
--- NOTE | 2018-05-15 07:06 | P.PNCC ---
Subjective Subjective Remarks/Hospital Course: Patient 33-year-old male history of seizure disorder versus pseudoseizures brought to the ED for seizure activity. Patient is on Keppra and Vimpat. Allergic to multiple seizure medications. Today patient had seizures while in police custody. Mostly tonic-clonic received Versed 2 mg IM x2 by EMS. In the emergency department he had multiple episodes of seizure and received total 4 mg IV Ativan. Described as mostly tonic activity. Patient was recently admitted to the ICU and had workup for seizures, EEG and MRI were negative at that time. I evaluated the patient in the ED. he appears slightly lethargic but not having seizures at this time. He received 4 mg of IV Ativan in the ED, and was loaded with IV Keppra 1000 mg. Patient will be admitted to ICU will be placed back on first home dose of patent Keppra. 05/12: Status seizures and return to [facility] for control when refractory to intermittent Ativan and Dilantin dosing. Patient is loaded with Vimpat and Keppra, new increased dose of the latter. With return to [facility], it was noticed that seizures never ceased but intermittently became less tonic in nature. 05/13: Twitching activity when sedation lightened. Neurology service has increased Keppra and Vimpat dosing. We will try to lighten again when new drug levels are a established. 05/14: No seizures, will lighten sedation and try to work toward weaning ventilation 05/15: Intubated sedated. Spiking fever up to 102 with copious ET tube secretions. Cultures requested. Chest x-ray pending, patient wakes up follows commands while on sedation Objective Vital Signs / I&O: Vital Signs 05/14/18 08:00 05/14/18 08:08 05/14/18 10:00 Temperature 98.4 F Pulse Rate 76 80 Respiratory Rate 16 16 Blood Pressure 103/60 Pulse Oximetry 95 98 05/14/18 11:32 05/14/18 12:00 05/14/18 14:00 Temperature 98.3 F Pulse Rate 91 H 94 H Respiratory Rate 16 16 Blood Pressure 143/56 H Pulse Oximetry 98 100 05/14/18 15:37 05/14/18 16:00 05/14/18 18:00 Temperature 99.1 F Pulse Rate 102 H 84 Respiratory Rate 20 21 Blood Pressure 155/89 H Pulse Oximetry 99 100 05/14/18 20:00 05/14/18 20:17 05/14/18 22:00 Temperature 99.4 F Pulse Rate 103 H 75 Respiratory Rate 17 16 Blood Pressure 137/82 Pulse Oximetry 100 100 05/14/18 23:56 05/15/18 00:00 05/15/18 02:00 Temperature 100.3 F H Pulse Rate 83 106 H Respiratory Rate 15 16 Blood Pressure 127/79 Pulse Oximetry 100 100 05/15/18 03:54 05/15/18 04:00 05/15/18 06:00 Temperature 99.9 F H Pulse Rate 87 100 H 84 Respiratory Rate 15 17 Blood Pressure 143/91 H Pulse Oximetry 99 Intake & Output 05/14/18 05/15/18 05/15/18 18:59 06:59 18:59 Intake Total 1460 / 1460 2300 / 2300 Output Total 1425 / 1425 1425 / 1425 Balance 35 / 35 875 / 875 Weight 86.2 kg Intake: IV 1460 / 1460 2300 / 2300 Versed Inj 50 mg In 50 ml @ 2 50 / 50 MG/HR 2 mls/hr IV.CONT TITRATE PRN Rx#:[id number] Diprivan 1000 mg/100 ml Inj 1, 200 / 200 300 / 300 000 mg In 100 ml @ 5 MCG/KG/MIN 2.634 mls/hr IV.CONT TITRATE PRN Rx#:[id number] NS Inj 1,000 ML @ 100 mls/hr IV 1000 / 1000 2000 / 2000 .CONT .Q10H [facility] Rx#:[id number] Keppra Inj 500 MG In NS Inj 100 210 / 210 ML @ 400 mls/hr IV.SIG TID [facility] Rx#:[id number] Output: Urine Amount (Catheter) 1425 / 1425 1425 / 1425 Straight 1425 / 1425 1425 / 1425 Other: # Voids 2 2 # Bowel Movements 0 Result Diagrams: 05/15/18 04:02 05/15/18 04:02 Objective Remarks: Head: Normal, atraumatic Neck: Supple, orotracheal intubation. Lungs: Clear, no adventitious sounds. Good bilateral air movement. Heart: RRR, normal S1-S2, no JVD. Abdoemn: Benign. Soft, no guarding, bowel sounds present Extremities: Warm, well-perfused Neuro: Pupils 2 mm and reactive to light. Seen to move 4 extremities when sedation lightened. No seizure activity noted. Follows commands x4 Assessment and Plan - Problem List (1) Status epilepticus Code(s): G40.901 - Epilepsy, unspecified, not intractable, with status epilepticus Status: Acute (2) Seizure Code(s): R56.9 - Unspecified convulsions Status: Acute (3) Depression Code(s): F32.9 - Major depressive disorder, single episode, unspecified Status : Chronic (4) Respiratory failure requiring intubation Code(s): J96.90 - Respiratory failure, unspecified, unspecified whether with hypoxia or hypercapnia Status: Acute (5) Encephalopathy, metabolic Code(s): G93.41 - Metabolic encephalopathy Status: Acute - Assessment and Plan Plan: Plan: Neuro/Psych: Status epilepticus Seizure disorder vs pseudoseizures Depression disorder NOS -Patient received a total 4 mg IV Ativan in the ED and was loaded with 1 g of Keppra -Continue home dose of Keppra and Vimpat, dose increased by neurology -EEG/MRI brain last admission was negative. EEG 05/10, 05/13 with no seizures -Repeat MRI negative, CT brain revealed no acute intracranial findings -Recurrent status 05/12 -> intubation CV: -Close hemodynamic monitoring -On normal saline at 100 cc an hour. Resp: History of right lower lobe PE 2017 -PRVC/AC. CXR today -DuoNeb aerosols every 2 hours as needed for dyspnea -Start spontaneous breathing trials GI: -N.p.o. for possible extubation -Bowel regimen if needed -Nasogastric tube for meds and tube feeding Endo: -Electrolyte replacement per protocol Renal: -Monitor urine output -Accurate I's and O's -Creatinine currently within normal limits Heme: -Monitor CBC coags ID: Fever/leukocytosis Probable sepsis -Spiked fever to 102, white count 14.7 -Check sputum blood and urine culture, CXR -Empiric Zosyn until cultures are negative, 1 dose of vancomycin FEN: -Replace electrolytes as clinically indicated per protocol Access -Utilize peripheral IV. Prophylaxis -GI -Famotidine -DVT -SCD/Lovenox Right shoulder pain Chronic. X ray unremarkable. -outpt PT recommended. -pain control as needed with Tylenol and ibuprofen. PPx: SCDs /Lovenox Discharge Planning: Overall impression: This gentleman developed generalized tonic seizures, refractory to Ativan and Versed. Following intubation and sedation with continuous infusion propofol and Versed the seizing has stopped. Patient remains critically ill and is being treated for status epilepticus. Now spiking high fever probable aspiration and sepsis. Wean intravenous sedation slowly and observe for new seizure activity. Critical care 35 minutes aside from procedures.
--- NOTE | 2018-05-15 08:03 | XR ---
EXAM DATE: 05/15/2018 6:59 AM EDT AGE/SEX: 33 years / Male INDICATIONS: Respiratory Disease. CLINICAL DATA: This is the patient's subsequent encounter. Patient reports that signs and symptoms h ave been present for 2 weeks and indicates a pain score of Nonresponsive. MEDICAL/SURGICAL HISTORY: Seizures. Abdominal aortic aneurysm repair. COMPARISON: [facility] – [place], CHEST 1V SINGLE AP, 05/12/2018. . FINDINGS: A single AP view of the chest demonstrates left basilar density. Right lung relatively clear. Endotra cheal tube with tip 3.5 cm above the lisha. Nasogastric tube with tip in stomach.. The cardiomedias tinal contours are unremarkable. Osseous structures are intact. CONCLUSION: Left basilar density likely atelectasis. Electronically signed by: Chad Mujica MD 05/15/2018 8:02 AM EDT
[2018-05-15] MEDS: Piperacil/Tazo 4.5 GM Premix 4.5 GM/100 ML BAG IV.SIG SCH ×3 (08:33→20:46)
[2018-05-15] MEDS: Famotidine 20 MG Tablet PO SCH ×2 (08:34→20:46)
[2018-05-15] MEDS: Senna/Docusate Sodium 8.6/50 MG Tablet PO SCH ×2 (08:34→20:46)
[2018-05-15] MEDS: Polyethylene Glycol 3350 17 GM Packet PO SCH ×2 (08:34→20:46)
[2018-05-15] MEDS: Lacosamide 100 MG Tablet PO SCH ×2 (08:34→20:46)
[2018-05-15] MEDS ORDERED: Vancomycin Inj 1,250 MG in Sodium Chlor 0.9% Inj 250 ML IV.SIG ONE (09:00)
[2018-05-15 09:59] LABS: Bacteria,Urine Rare /hpf; Bilirubin,Urine Negative (Negative); Clarity,Urine Clear (Clear); Color,Urine Yellow (Yellw/Straw); Glucose,Urine (UA) Negative (Negative); Leukocyte Esterase,Urine Negative (Negative); Mucus,Urine Few /lpf (Occasional); Nitrite,Urine Negative (Negative); Specific Gravity,Urine 1.011 (1.002-1.035)
[2018-05-15] MEDS: Enoxaparin Inj 40 MG/0.4 ML Syringe SQ SCH (17:00)
[2018-05-16] MEDS: Piperacil/Tazo 4.5 GM Premix 4.5 GM/100 ML BAG IV.SIG SCH ×4 (02:13→19:45)
--- NOTE | 2018-05-16 03:29 | XR ---
EXAM DATE: 05/16/2018 6:00 AM EDT AGE/SEX: 33 years / Male INDICATIONS: Shortness of breath. CLINICAL DATA: This is the patient's subsequent encounter. Patient reports that signs and symptoms h ave been present for 1 month and indicates a pain score of Nonresponsive. MEDICAL/SURGICAL HISTORY: . Seizures. . Abdominal aortic aneurysm repair. COMPARISON: [facility] [place]ST 1V SINGLE AP, 05/15/2018. . FINDINGS: Portable AP view of the chest demonstrates a normal-sized cardiac silhouette. No effusion, consolidat ion, or pneumothorax is identified. There is mild atelectasis at the left lung base but overall there is improved aeration at both lung bases. The bones and soft tissues demonstrate no acute finding. T he nasogastric tube and endotracheal tube have been removed. CONCLUSION: Improved aeration at the lung bases with mild residual atelectasis at the left lung base. Electronically signed by: Evin Wing MD 05/16/2018 3:27 AM EDT
[2018-05-16] MEDS: Chlorhexidine Gluconate 2% 1 Pack (2 Cloths) TOPICAL SCH (03:35)
[2018-05-16 06:04] LABS: Baso % (Auto) 0.5 % (0.0-2.0); Eos # (Auto) 0.3 th/mm3 (0.0-0.4); Eos % (Auto) 3.2 % (0.0-4.0); Hematocrit 37.9 % (39.0-51.0); Lymph # (Auto) 2.2 th/mm3 (1.0-4.8); Lymph % (Auto) 22.6 % (9.0-44.0); Mean Corpuscular HGB Conc 34.3 % (32.0-36.0); Mean Corpuscular Hemoglobin 30.9 pg (27.0-34.0); Mean Platelet Volume 7.8 fL (7.0-11.0); Mono # (Auto) 0.6 th/mm3 (0.0-0.9); Mono % (Auto) 6.1 % (0.0-8.0); Neut # (Auto) 6.5 th/mm3 (1.8-7.7); Neut % (Auto) 67.6 % (16.0-70.0); Platelet Count 260 th/mm3 (150-450); Red Blood Count 4.22 mil/mm3 (4.50-5.90); Red Cell Distribution Width 13.6 % (11.6-17.2); White Blood Count 9.6 th/mm3 (4.0-11.0)
[2018-05-16 06:20] LABS: Alanine Aminotransferase 58 U/L (12-78); Albumin 3.3 g/dL (3.4-5.0); Anion Gap 12 meq/L (5-15); Aspartate Aminotransferase 25 U/L (15-37); Blood Urea Nitrogen 10 mg/dL (7-18); Carbon Dioxide 25.6 meq/L (21.0-32.0); Chloride 107 meq/L (98-107); Glomerular Filtration Rate Greater Than 89 mL/min (>89); Glucose,Random 89 mg/dL (74-106); Potassium 3.2 meq/L (3.5-5.1); Sodium 145 meq/L (136-145)
[2018-05-16 06:22] LABS: Alkaline Phosphatase 71 U/L (45-117); Total Protein 7.7 g/dL (6.4-8.2)
[2018-05-16] MEDS: Lacosamide 100 MG Tablet PO SCH ×2 (08:31→20:01)
[2018-05-16] MEDS: Famotidine 20 MG Tablet PO SCH ×2 (08:31→20:02)
[2018-05-16] MEDS: Senna/Docusate Sodium 8.6/50 MG Tablet PO SCH ×2 (08:31→20:01)
[2018-05-16] MEDS: Polyethylene Glycol 3350 17 GM Packet PO SCH ×2 (08:32→20:01)
[2018-05-16] MEDS ORDERED: Magnesium Sulfate Inj 4 GM in Sodium Chlor 0.9% Inj 92 ML IV.SIG PRN (08:37)
[2018-05-16] MEDS ORDERED: Potassium Phosphate 500 MG Soluble Tablet PO PRN ×2 (08:37)
[2018-05-16] MEDS ORDERED: Potassium Phosphate Inj 30 MMOL in Sodium Chlor 0.9% Inj 250 ML IV.SIG PRN (08:37)
[2018-05-16] MEDS ORDERED: Potassium Chlor 20 mEq Premix 20 MEQ/100 ML PIGGYBACK IV.SIG PRN (08:37)
[2018-05-16] MEDS ORDERED: Magnesium Sulfate Inj 2 GM in Sodium Chlor 0.9% Inj 96 ML IV.SIG PRN (08:37)
[2018-05-16] MEDS ORDERED: Potassium Chloride 25 MEQ Effervescent Tablet PO PRN (08:37)
[2018-05-16] MEDS ORDERED: Magnesium Oxide 400 MG Tablet PO PRN (08:37)
[2018-05-16] MEDS ORDERED: Potassium Chlor 40 mEq Premix 40 MEQ/100 ML PIGGYBACK IV.SIG PRN ×2 (08:37)
[2018-05-16] MEDS ORDERED: Sodium Phosphate Inj 30 MMOL in Sodium Chlor 0.9% Inj 250 ML IV.SIG PRN (08:37)
--- NOTE | 2018-05-16 08:39 | P.PNCC ---
Subjective Subjective Remarks/Hospital Course: Patient 33-year-old male history of seizure disorder versus pseudoseizures brought to the ED for seizure activity. Patient is on Keppra and Vimpat. Allergic to multiple seizure medications. Today patient had seizures while in police custody. Mostly tonic-clonic received Versed 2 mg IM x2 by EMS. In the emergency department he had multiple episodes of seizure and received total 4 mg IV Ativan. Described as mostly tonic activity. Patient was recently admitted to the ICU and had workup for seizures, EEG and MRI were negative at that time. I evaluated the patient in the ED. he appears slightly lethargic but not having seizures at this time. He received 4 mg of IV Ativan in the ED, and was loaded with IV Keppra 1000 mg. Patient will be admitted to ICU will be placed back on first home dose of patent Keppra. 05/12: Status seizures and return to [facility] for control when refractory to intermittent Ativan and Dilantin dosing. Patient is loaded with Vimpat and Keppra, new increased dose of the latter. With return to [facility], it was noticed that seizures never ceased but intermittently became less tonic in nature. 05/13: Twitching activity when sedation lightened. Neurology service has increased Keppra and Vimpat dosing. We will try to lighten again when new drug levels are a established. 05/14: No seizures, will lighten sedation and try to work toward weaning ventilation 05/15: Intubated sedated. Spiking fever up to 102 with copious ET tube secretions. Cultures requested. Chest x-ray pending, patient wakes up follows commands while on sedation 05/16: Extubated yesterday tolerating well. No fever reported. No further seizures since extubation. WBC count has normalized, cultures are pending Objective Vital Signs / I&O: Vital Signs 05/15/18 10:00 05/15/18 12:00 05/15/18 14:00 Temperature 98.4 F Pulse Rate 98 H 86 99 H Respiratory Rate 10 L Blood Pressure 120/65 Pulse Oximetry 93 L 05/15/18 16:00 05/15/18 18:00 05/15/18 20:00 Temperature 98.8 F 98.4 F Pulse Rate 78 96 H 78 Respiratory Rate 19 16 Blood Pressure 111/68 113/65 Pulse Oximetry 95 97 05/15/18 22:00 05/16/18 00:00 05/16/18 02:00 Temperature 98.5 F Pulse Rate 84 76 76 Respiratory Rate 22 Blood Pressure 137/60 Pulse Oximetry 99 05/16/18 04:00 05/16/18 06:00 Temperature 98.3 F Pulse Rate 78 68 Respiratory Rate 21 Blood Pressure 104/58 L Pulse Oximetry 95 Intake & Output 05/15/18 05/16/18 05/16/18 18:59 06:59 18:59 Intake Total 2307.5 / 2307.5 200 / 200 Output Total 2350 / 2350 3075 / 3075 Balance -42.5 / -42.5 -2875 / -2875 Intake: IV 1107.5 / 1107.5 200 / 200 Versed Inj 50 mg In 50 ml @ 2 35 / 35 MG/HR 2 mls/hr IV.CONT TITRATE PRN Rx#:[id number] Diprivan 1000 mg/100 ml Inj 1, 70 / 70 000 mg In 100 ml @ 5 MCG/KG/MIN 2.634 mls/hr IV.CONT TITRATE PRN Rx#:[id number] NS Inj 1,000 ML @ 100 mls/hr IV 225 / 225 .CONT .Q10H [facility] Rx#:[id number] Zosyn 4.5 GM Premix 4.5 gm In 200 / 200 200 / 200 100 ml @ 200 mls/hr IV.SIG Q6H [facility] Rx#:[id number] Vancomycin Inj 1,250 MG In NS 262.5 / 262.5 Inj 250 ML @ 250 mls/hr IV.SIG ONCE ONE Rx#:[id number] Keppra Inj 500 MG In NS Inj 100 315 / 315 ML @ 400 mls/hr IV.SIG TID [facility] Rx#:[id number] Oral 920 / 920 Other 280 / 280 Output: Urine 1875 / 1875 3075 / 3075 Urine Amount (Catheter) 475 / 475 Straight 475 / 475 Other: Date of Last Bowel Movement 05/15/18 05/15/18 # Bowel Movements 2 Result Diagrams: 05/16/18 04:33 05/16/18 04:33 Objective Remarks: Head: Normal, atraumatic Neck: Supple, No JVD Lungs: Clear, no adventitious sounds. Good bilateral air movement. Heart: RRR, normal S1-S2, no JVD. Abdoemn: Benign. Soft, no guarding, bowel sounds present Extremities: Warm, well-perfused Neuro: Pupils 2 mm and reactive to light. Awake alert oriented. No focal neurological deficits Assessment and Plan - Problem List (1) Status epilepticus Code(s): G40.901 - Epilepsy, unspecified, not intractable, with status epilepticus Status: Acute (2) Seizure Code(s): R56.9 - Unspecified convulsions Status: Acute (3) Depression Code(s): F32.9 - Major depressive disorder, single episode, unspecified Status : Chronic (4) Respiratory failure requiring intubation Code(s): J96.90 - Respiratory failure, unspecified, unspecified whether with hypoxia or hypercapnia Status: Acute (5) Encephalopathy, metabolic Code(s): G93.41 - Metabolic encephalopathy Status: Acute - Assessment and Plan Plan: Plan: Neuro/Psych: Status epilepticus Seizure disorder Depression disorder NOS -Patient received a total 4 mg IV Ativan in the ED and was loaded with 1 g of Keppra -Continue home dose of Keppra and Vimpat, dose increased by neurology -EEG/MRI brain last admission was negative. EEG 05/10, 05/13 with no seizures -Repeat MRI negative, CT brain revealed no acute intracranial findings -Recurrent status 05/12 -> intubation, extubated 05/15/18 CV: -Close hemodynamic monitoring -On normal saline at 100 cc an hour-DC Resp: Acute respiratory failure History of right lower lobe PE 2016 -Extubated yesterday tolerating well -DuoNeb aerosols every 2 hours as needed for dyspnea GI: -Regular diet -Bowel regimen if needed Endo: Hypokalemia -Electrolyte replacement per protocol Renal: -Monitor urine output -Accurate I's and O's -Creatinine currently within normal limits Heme: -Monitor CBC coags ID: Fever/leukocytosis Possible sepsis -Spiked fever to 102 yesterday, white count 14.7. Currently afebrile WBC count has normalized -Follow-up sputum blood and urine culture, -Empiric Zosyn until cultures are negative, 1 dose of vancomycin 05/15/2018 Access -Utilize peripheral IV. Prophylaxis -GI -Famotidine -DVT -SCD/Lovenox Right shoulder pain Chronic. X ray unremarkable. -outpt PT recommended. -pain control as needed with Tylenol and ibuprofen. PPx: SCDs /Lovenox Discharge Planning: Overall impression: This gentleman developed generalized tonic seizures, refractory to Ativan and Versed. Following intubation and sedation with continuous infusion propofol and Versed the seizing has stopped. Currently extubated seizures appears to be controlled Continue ICU care for another 24 hours. Consult hospitalist to assume care 07/2018
[2018-05-16] MEDS: Potassium Chlor 20 mEq Premix 20 MEQ/100 ML PIGGYBACK IV.SIG PRN ×3 (10:07→18:26)
[2018-05-16] MEDS ORDERED: Vancomycin Consult Pharmacy OTHER PRN (10:26)
[2018-05-16] MEDS: Benzocaine/Menthol 15 MG/3.6 MG SF Lozenge BUCCAL PRN ×3 (11:33→22:30)
[2018-05-16] MEDS: Vancomycin Inj 1,500 MG in Sodium Chlor 0.9% Inj 500 ML IV.SIG SCH (13:12)
[2018-05-16] MEDS: Enoxaparin Inj 40 MG/0.4 ML Syringe SQ SCH (18:06)
[2018-05-17] MEDS: Piperacil/Tazo 4.5 GM Premix 4.5 GM/100 ML BAG IV.SIG SCH ×4 (01:31→22:13)
[2018-05-17] MEDS: Vancomycin Inj 1,500 MG in Sodium Chlor 0.9% Inj 500 ML IV.SIG SCH ×2 (01:31→13:20)
[2018-05-17] MEDS: Benzocaine/Menthol 15 MG/3.6 MG SF Lozenge BUCCAL PRN ×2 (02:10→11:36)
[2018-05-17 04:33] LABS: Alanine Aminotransferase 73 U/L (12-78); Albumin 3.4 g/dL (3.4-5.0); Anion Gap 11 meq/L (5-15); Aspartate Aminotransferase 37 U/L (15-37); Blood Urea Nitrogen 11 mg/dL (7-18); Calcium 8.9 mg/dL (8.5-10.1); Carbon Dioxide 24.6 meq/L (21.0-32.0); Chloride 108 meq/L (98-107); Glomerular Filtration Rate 89 mL/min (>89); Glucose,Random 86 mg/dL (74-106); Magnesium 2.1 mg/dL (1.5-2.5); Potassium 3.6 meq/L (3.5-5.1); Sodium 144 meq/L (136-145)
[2018-05-17 04:35] LABS: Alkaline Phosphatase 66 U/L (45-117); Total Protein 7.6 g/dL (6.4-8.2)
[2018-05-17] MEDS: Chlorhexidine Gluconate 2% 1 Pack (2 Cloths) TOPICAL SCH (04:50)
[2018-05-17] MEDS: Famotidine 20 MG Tablet PO SCH ×2 (08:21→22:14)
[2018-05-17] MEDS: Lacosamide 100 MG Tablet PO SCH ×2 (08:21→22:14)
[2018-05-17] MEDS: Senna/Docusate Sodium 8.6/50 MG Tablet PO SCH ×2 (09:03→22:14)
[2018-05-17] MEDS: Polyethylene Glycol 3350 17 GM Packet PO SCH ×2 (09:03→22:14)
--- NOTE | 2018-05-17 09:58 | P.PNIM ---
Subjective Interval history: No acute distress today. No further seizure activity noted thus far. Blood cultures are positive, awaiting further cultures to determine if this is contaminant versus bacteremia. Physical Exam Vital signs: Vital Signs 05/16/18 10:00 05/16/18 12:00 05/16/18 14:00 Temperature 97.9 F Pulse Rate 70 78 68 Respiratory Rate 18 Blood Pressure 122/68 Pulse Oximetry 96 05/16/18 15:12 05/16/18 16:00 05/16/18 17:00 Temperature 98.1 F Pulse Rate 78 75 80 Respiratory Rate 13 20 19 Blood Pressure 106/55 L 109/61 Pulse Oximetry 96 97 100 05/16/18 18:00 05/16/18 20:00 05/17/18 00:00 Temperature 98.5 F 98.6 F Pulse Rate 68 68 65 Respiratory Rate 19 21 19 Blood Pressure 115/68 110/58 L 109/56 L Pulse Oximetry 97 95 98 05/17/18 04:00 05/17/18 08:00 Temperature 98.1 F Pulse Rate 64 93 H Respiratory Rate 16 13 Blood Pressure 103/58 L 109/64 Pulse Oximetry 93 L 94 L Intake & Output 05/16/18 05/17/18 05/17/18 18:59 06:59 18:59 Intake Total 2085 / 2085 1370 / 1370 Output Total 2475 / 2475 1800 / 1800 Balance -390 / -390 -430 / -430 Weight 86.2 kg Intake: IV 1125 / 1125 890 / 890 Zosyn 4.5 GM Premix 4.5 gm In 200 / 200 200 / 200 100 ml @ 200 mls/hr IV.SIG Q6H [facility] Rx#:[id number] KCl 20 mEq Premix Inj 20 meq In 200 / 200 70 / 70 100 ml @ 50 mls/hr IV.SIG Q2H [facility] Rx#:[id number] Vancomycin Inj 1,500 MG In NS 515 / 515 515 / 515 Inj 500 ML @ 250 mls/hr IV.SIG Q12H [facility] Rx#:[id number] Keppra Inj 500 MG In NS Inj 100 210 / 210 105 / 105 ML @ 400 mls/hr IV.SIG TID [facility] Rx#:[id number] Oral 960 / 960 480 / 480 Output: Urine 2475 / 2475 1800 / 1800 Other: # Voids 5 Date of Last Bowel Movement 05/16/18 05/17/18 05/17/18 # Bowel Movements 1 1 Narrative: GENERAL: NAD, A&Ox3, patient handcuffed to bed with guards ([facility]) HEAD: Normocephalic. NECK: Supple, trachea midline. No lymphadenopathy. EYES: No scleral icterus. No injection or drainage. CARDIOVASCULAR: Regular rate and rhythm without murmurs, gallops, or rubs. RESPIRATORY: Breath sounds equal bilaterally. No accessory muscle use. GASTROINTESTINAL: Abdomen soft, non-tender, nondistended. MUSCULOSKELETAL: No cyanosis, or edema. SKIN: Warm and dry. NEURO: No focal neurological deficits. - Urinary Catheter Management Straight Cath placed during this visit: yes, but has since been removed by the nurse Reason for continuing: Not indwelling catheter Insertion date: 05/14/18 Insertion time: 18:30 Removal date: 05/14/18 Removal time: 18:45 Results - Labs CBC & Chem 7: 05/16/18 04:33 05/17/18 02:51 Laboratory Results - last 24 hr 05/17/18 02:51 Sodium 144 Potassium 3.6 Chloride 108 H Carbon Dioxide 24.6 Anion Gap 11 BUN 11 Creatinine 0.97 Estimated GFR 89 Random Glucose 86 Calcium 8.9 Magnesium 2.1 Total Bilirubin 0.4 AST 37 ALT 73 Alkaline Phosphatase 66 Total Protein 7.6 Albumin 3.4 Microbiology 05/15/18 08:23 Sputum - Endotracheal Gram Stain - Final 05/15/18 08:23 Sputum - Endotracheal Sputum Culture - Preliminary Immature growth - reincubate 05/15/18 09:11 Blood - Peripheral Aerobic Blood Culture - Preliminary Staphylococcus coag negative 05/15/18 09:11 Blood - Peripheral Anaerobic Blood Culture - Preliminary gram positive cocci 05/15/18 09:07 Blood - Peripheral Aerobic Blood Culture - Preliminary No growth in 1 day 05/15/18 09:07 Blood - Peripheral Anaerobic Blood Culture - Preliminary No growth in 1 day Assessment and Plan - Plan 33-year-old male admitted secondary to status epilepticus Status epilepticus Seizure disorder Depression disorder NOS PRN Ativan Neurology following Continue Keppra Continue Vimpat Status epilepticus resolved, patient extubated on 05/15/2018 Acute respiratory failure History of right lower lobe PE 2016 This was secondary to seizures Resolved Hypokalemia Monitor and replace as needed Fever/leukocytosis Possible sepsis Possible bacteremia Monitor blood cultures Continue Zosyn Alternatively this may have been a reactive phenomenon If blood cultures show contaminant we will discontinue antibiotics DVT prophylaxis SCDs Discharge Planning: Discharge will be considered based on further findings of blood culture, if contaminant is present rather than bacteremia we will consider discharge earlier in the presence of no further seizure activity
[2018-05-17] MEDS: Enoxaparin Inj 40 MG/0.4 ML Syringe SQ SCH (18:20)
[2018-05-18] MEDS ORDERED: Pharmacy Ordered Lab Info OTHER ONE (00:45)
[2018-05-18] MEDS: Vancomycin Inj 1,500 MG in Sodium Chlor 0.9% Inj 500 ML IV.SIG SCH ×2 (01:07→15:01)
[2018-05-18] MEDS: Piperacil/Tazo 4.5 GM Premix 4.5 GM/100 ML BAG IV.SIG SCH ×4 (01:08→23:00)
[2018-05-18] MEDS: Benzocaine/Menthol 15 MG/3.6 MG SF Lozenge BUCCAL PRN ×3 (03:19→17:32)
[2018-05-18] MEDS: Senna/Docusate Sodium 8.6/50 MG Tablet PO SCH ×2 (08:17→23:01)
[2018-05-18] MEDS: Polyethylene Glycol 3350 17 GM Packet PO SCH ×2 (08:17→23:00)
[2018-05-18] MEDS: Lacosamide 100 MG Tablet PO SCH ×2 (08:19→23:01)
[2018-05-18] MEDS: Famotidine 20 MG Tablet PO SCH ×2 (08:19→23:00)
--- NOTE | 2018-05-18 13:57 | P.PNIM ---
Subjective Interval history: Staphylococcus coagulase negative on culture. Sensitivities pending. No seizure activity. Physical Exam Vital signs: Vital Signs 05/17/18 15:25 05/17/18 18:30 05/17/18 20:00 Temperature 98.4 F 98 F 97.9 F Pulse Rate 72 73 74 Respiratory Rate 20 18 18 Blood Pressure 121/78 119/72 123/74 Pulse Oximetry 97 99 97 05/18/18 00:00 05/18/18 04:00 05/18/18 08:00 Temperature 97.8 F 98.1 F 98 F Pulse Rate 68 60 57 L Respiratory Rate 18 18 20 Blood Pressure 112/67 95/60 L 105/63 Pulse Oximetry 96 96 96 05/18/18 12:00 Temperature 98 F Pulse Rate 63 Respiratory Rate 20 Blood Pressure 114/59 L Pulse Oximetry 96 Intake & Output 05/17/18 05/18/18 05/18/18 18:59 06:59 18:59 Intake Total 1155 / 1155 305 / 305 1065 / 1065 Output Total 600 / 600 500 / 500 Balance 1155 / 1155 -295 / -295 565 / 565 Weight 54.8 kg Intake: IV 915 / 915 305 / 305 825 / 825 Zosyn 4.5 GM Premix 4.5 gm In 190 / 190 200 / 200 100 / 100 100 ml @ 200 mls/hr IV.SIG Q6H [facility] Rx#:[id number] Vancomycin Inj 1,500 MG In NS 515 / 515 515 / 515 Inj 500 ML @ 250 mls/hr IV.SIG Q12H [facility] Rx#:[id number] Keppra Inj 500 MG In NS Inj 100 210 / 210 105 / 105 210 / 210 ML @ 400 mls/hr IV.SIG TID [facility] Rx#:[id number] Oral 240 / 240 240 / 240 Output: Urine 600 / 600 500 / 500 Other: Date of Last Bowel Movement 05/17/18 05/17/18 Narrative: GENERAL: NAD, A&Ox3, patient handcuffed to bed with guards (inmate from [facility]) HEAD: Normocephalic. NECK: Supple, trachea midline. No lymphadenopathy. EYES: No scleral icterus. No injection or drainage. CARDIOVASCULAR: Regular rate and rhythm without murmurs, gallops, or rubs. RESPIRATORY: Breath sounds equal bilaterally. No accessory muscle use. GASTROINTESTINAL: Abdomen soft, non-tender, nondistended. MUSCULOSKELETAL: No cyanosis, or edema. SKIN: Warm and dry. NEURO: No focal neurological deficits. - Urinary Catheter Management Straight Cath placed during this visit: yes, but has since been removed by the nurse Reason for continuing: Not indwelling catheter Insertion date: 05/14/18 Insertion time: 18:30 Removal date: 05/14/18 Removal time: 18:45 Results - Labs CBC & Chem 7: 05/16/18 04:33 05/17/18 02:51 Laboratory Results - last 24 hr 05/18/18 00:45 Vancomycin Trough 18.6 H Microbiology 05/15/18 09:07 Blood - Peripheral Aerobic Blood Culture - Preliminary No growth in 3 days 05/15/18 09:07 Blood - Peripheral Anaerobic Blood Culture - Preliminary No growth in 3 days 05/15/18 08:23 Sputum - Endotracheal Gram Stain - Final 05/15/18 08:23 Sputum - Endotracheal Sputum Culture - Final Beta Streptococcus Group C 05/15/18 09:11 Blood - Peripheral Aerobic Blood Culture - Preliminary Staphylococcus coag negative 05/15/18 09:11 Blood - Peripheral Anaerobic Blood Culture - Preliminary Staphylococcus coag negative Assessment and Plan - Plan 33-year-old male admitted secondary to status epilepticus Continue monitoring blood cultures for sensitivities and final culture. This may be ready tomorrow. No seizure activity. Continue antibiotics. Status epilepticus Seizure disorder Depression disorder NOS PRN Ativan Neurology following Continue Keppra Continue Vimpat Status epilepticus resolved, patient extubated on 05/15/2018 Acute respiratory failure History of right lower lobe PE 2016 This was secondary to seizures Resolved Hypokalemia Monitor and replace as needed Fever/leukocytosis Possible sepsis Possible bacteremia Monitor blood cultures Continue Zosyn Alternatively this may have been a reactive phenomenon If blood cultures show contaminant we will discontinue antibiotics DVT prophylaxis SCDs Discharge Planning: Discharge will be considered based on further findings of blood culture, if contaminant is present rather than bacteremia we will consider discharge earlier in the presence of no further seizure activity
[2018-05-18] MEDS: Enoxaparin Inj 40 MG/0.4 ML Syringe SQ SCH (17:31)
[2018-05-19] MEDS: Vancomycin Inj 1,500 MG in Sodium Chlor 0.9% Inj 500 ML IV.SIG SCH ×2 (00:51→13:00)
[2018-05-19] MEDS: Acetaminophen 325 MG Tablet PO PRN (00:57)
[2018-05-19] MEDS: Benzocaine/Menthol 15 MG/3.6 MG SF Lozenge BUCCAL PRN (00:58)
[2018-05-19] MEDS: Piperacil/Tazo 4.5 GM Premix 4.5 GM/100 ML BAG IV.SIG SCH ×4 (02:30→20:22)
[2018-05-19] MEDS: Famotidine 20 MG Tablet PO SCH ×2 (08:54→20:18)
[2018-05-19] MEDS: Lacosamide 100 MG Tablet PO SCH ×2 (08:54→20:18)
--- NOTE | 2018-05-19 10:48 | P.DS ---
Date of admission: 05/09/18 17:14 Primary care physician: No Primary Care Physician Brief History from admission: Patient 33-year-old male history of seizure disorder versus pseudoseizures brought to the ED for seizure activity. Patient is on Keppra and Vimpat. Allergic to multiple seizure medications. Today patient had seizures while in police custody. Mostly tonic-clonic received Versed 2 mg IM x2 by EMS. In the emergency department he had multiple episodes of seizure and received total 4 mg IV Ativan. Described as mostly tonic activity. Patient was recently admitted to the ICU and had workup for seizures, EEG and MRI were negative at that time. I evaluated the patient in the ED. he appears slightly lethargic but not having seizures at this time. He received 4 mg of IV Ativan in the ED, and was loaded with IV Keppra 1000 mg. Patient will be admitted to ICU will be placed back on first home dose of patent Keppra. DS: Medications - Discharge Medications Prescriptions: lacosamide [Vimpat] 200 mg PO BID #60 tab levetiracetam [Keppra] 1,500 mg PO BID #120 tab sennosides-docusate sodium [Senna Plus] 2 tab PO BID #120 tab DS: Summary Hospital Course: This patient is a 33-year-old male. He was admitted secondary to status epilepticus. Concern for sepsis were present initially. Antibiotics were started. Potential for bacteremia was present based on positive findings on blood cultures. However, final blood cultures show evidence of contaminant. Antibiotics are discontinued. Patient shows no signs of infection and previous signs of infection were likely related to status epilepticus. Patient has been doing good on current treatments of Vimpat and Keppra. He will discharged on 200 mg twice daily of Vimpat and 1500 mg twice daily of Keppra. No further evidence of seizures for greater than 48 hours now. medically clear and stable for discharge (back to group home) today. - Time Spent with Patient Total time spent providing and/or coordinating discharge services: Less than 30 minutes - Quality: VTE Deep Vein Thrombosis/Pulmonary Embolism Present on Admission: No Exam Vital signs: Vital Signs 05/18/18 12:00 05/18/18 16:00 05/18/18 20:00 Temperature 98 F 98 F 98.1 F Pulse Rate 63 70 75 Respiratory Rate 20 18 18 Blood Pressure 114/59 L 141/55 H 126/77 Pulse Oximetry 96 97 95 05/19/18 00:00 05/19/18 03:27 05/19/18 03:40 Temperature 97.9 F Pulse Rate 77 119 H 103 H Respiratory Rate 18 18 19 Blood Pressure 120/75 180/98 H 119/71 Pulse Oximetry 97 97 98 05/19/18 03:47 05/19/18 04:00 05/19/18 06:05 Temperature 97.7 F Pulse Rate 79 81 65 Respiratory Rate 18 18 Blood Pressure 117/62 103/62 Pulse Oximetry 98 99 05/19/18 08:00 Temperature 98.2 F Pulse Rate 69 Respiratory Rate 20 Blood Pressure 116/78 Pulse Oximetry 97 Intake & Output 05/18/18 05/19/18 05/19/18 18:59 06:59 18:59 Intake Total 1785 / 1785 715 / 715 Output Total 950 / 950 2200 / 2200 Balance 835 / 835 -1485 / -1485 Weight 54.8 kg Intake: IV 1545 / 1545 715 / 715 Zosyn 4.5 GM Premix 4.5 gm In 200 / 200 200 / 200 100 ml @ 200 mls/hr IV.SIG Q6H NOY Rx#:[id number] Vancomycin Inj 1,500 MG In NS 1030 / 1030 515 / 515 Inj 500 ML @ 250 mls/hr IV.SIG Q12H NOY Rx#:[id number] Keppra Inj 500 MG In NS Inj 100 315 / 315 ML @ 400 mls/hr IV.SIG TID NOY Rx#:[id number] Oral 240 / 240 Output: Urine 950 / 950 2200 / 2200 Other: Date of Last Bowel Movement 05/17/18 Results Procedures completed during hospitalization: Intubation/ventilation/extubation Labs on day of discharge: Preliminary micro results at discharge 05/15/18 09:07 Aerobic Blood Culture - Preliminary Blood - Peripheral No growth in 3 days Anaerobic Blood Culture - Preliminary No growth in 3 days - Impressions ITS Impressions Head MRI 05/10/18 00:00 CONCLUSION: 1. Negative MRI of the brain performed without and with contrast. Shoulder X-Ray 05/10/18 00:00 CONCLUSION: No fracture or subluxation of the right shoulder. Head CT 05/12/18 12:11 CONCLUSION: 1. Unremarkable and stable CT scan of the brain. . Chest X-Ray 05/16/18 06:00 CONCLUSION: Improved aeration at the lung bases with mild residual atelectasis at the left lung base. Discharge Plan - Discharge Disposition Patient Disposition: 70 Transfer To Other Facility - Discharge Condition Condition: Stable - Discharge Order Discharge Orders: Discharge Order (Routine); Ordered 05/19/18 Ordered By: Pawel Miranda - Discharge Details Anticipated Discharge Date: 05/19/18 - Physicians Team Primary Care Provider: Primary Care Daniel,Latrice Attending Provider: Pawel Miranda Other Providers: Yunier Santana MD ; Michael López MD
--- NOTE | 2018-05-19 11:41 | P.PNIM ---
Subjective Interval history: Patient is informed of the findings of his positive blood culture are contaminant. He is medically clear for discharge today. Subsequently patient started having seizure activity again. This could be malingering. Physical Exam Vital signs: Vital Signs 05/18/18 12:00 05/18/18 16:00 05/18/18 20:00 Temperature 98 F 98 F 98.1 F Pulse Rate 63 70 75 Respiratory Rate 20 18 18 Blood Pressure 114/59 L 141/55 H 126/77 Pulse Oximetry 96 97 95 05/19/18 00:00 05/19/18 03:27 05/19/18 03:40 Temperature 97.9 F Pulse Rate 77 119 H 103 H Respiratory Rate 18 18 19 Blood Pressure 120/75 180/98 H 119/71 Pulse Oximetry 97 97 98 05/19/18 03:47 05/19/18 04:00 05/19/18 06:05 Temperature 97.7 F Pulse Rate 79 81 65 Respiratory Rate 18 18 Blood Pressure 117/62 103/62 Pulse Oximetry 98 99 05/19/18 08:00 Temperature 98.2 F Pulse Rate 69 Respiratory Rate 20 Blood Pressure 116/78 Pulse Oximetry 97 Intake & Output 05/18/18 05/19/18 05/19/18 18:59 06:59 18:59 Intake Total 1785 / 1785 715 / 715 Output Total 950 / 950 2200 / 2200 Balance 835 / 835 -1485 / -1485 Weight 54.8 kg Intake: IV 1545 / 1545 715 / 715 Zosyn 4.5 GM Premix 4.5 gm In 200 / 200 200 / 200 100 ml @ 200 mls/hr IV.SIG Q6H NOY Rx#:[id number] Vancomycin Inj 1,500 MG In NS 1030 / 1030 515 / 515 Inj 500 ML @ 250 mls/hr IV.SIG Q12H NOY Rx#:[id number] Keppra Inj 500 MG In NS Inj 100 315 / 315 ML @ 400 mls/hr IV.SIG TID NOY Rx#:[id number] Oral 240 / 240 Output: Urine 950 / 950 2200 / 2200 Other: Date of Last Bowel Movement 05/17/18 Narrative: GENERAL: NAD, A&Ox3, patient handcuffed to bed with guards (inmate from [facility]) HEAD: Normocephalic. NECK: Supple, trachea midline. No lymphadenopathy. EYES: No scleral icterus. No injection or drainage. CARDIOVASCULAR: Regular rate and rhythm without murmurs, gallops, or rubs. RESPIRATORY: Breath sounds equal bilaterally. No accessory muscle use. GASTROINTESTINAL: Abdomen soft, non-tender, nondistended. MUSCULOSKELETAL: No cyanosis, or edema. SKIN: Warm and dry. NEURO: No focal neurological deficits. - Urinary Catheter Management Straight Cath placed during this visit: yes, but has since been removed by the nurse Reason for continuing: Not indwelling catheter Insertion date: 05/14/18 Insertion time: 18:30 Removal date: 05/14/18 Removal time: 18:45 Results - Labs CBC & Chem 7: 05/16/18 04:33 05/17/18 02:51 Microbiology 05/15/18 09:07 Blood - Peripheral Aerobic Blood Culture - Preliminary No growth in 4 days 05/15/18 09:07 Blood - Peripheral Anaerobic Blood Culture - Preliminary No growth in 4 days 05/15/18 09:11 Blood - Peripheral Aerobic Blood Culture - Final Staph. capitis-ureolyticus 05/15/18 09:11 Blood - Peripheral Anaerobic Blood Culture - Final Staphylococcus coag negative - Procedures Intubation/ventilation/extubation Assessment and Plan - Plan 33-year-old male admitted secondary to status epilepticus Discontinue antibiotics. Ativan IV provided for seizure activity. Discharged on hold for now. Status epilepticus Seizure disorder Depression disorder NOS Recurrence of seizure today upon clearance for discharge PRN Ativan Neurology following Continue Keppra Continue Vimpat Status epilepticus resolved, patient extubated on 05/15/2018 Acute respiratory failure History of right lower lobe PE 2016 This was secondary to seizures Resolved Hypokalemia Monitor and replace as needed Fever/leukocytosis Possible sepsis Possible bacteremia Monitor blood cultures Continue Zosyn Alternatively this may have been a reactive phenomenon If blood cultures show contaminant we will discontinue antibiotics DVT prophylaxis SCDs Discharge Planning: Discharge will be considered based on further findings of blood culture, if contaminant is present rather than bacteremia we will consider discharge earlier in the presence of no further seizure activity
--- NOTE | 2018-05-19 11:56 | P.PN ---
Subjective Interval history: has been stable awaiting dc to snf and now had a sz gen shaking 2mg ativan given stat eeg Physical Exam Vital signs: Vital Signs 05/18/18 12:00 05/18/18 16:00 05/18/18 20:00 Temperature 98 F 98 F 98.1 F Pulse Rate 63 70 75 Respiratory Rate 20 18 18 Blood Pressure 114/59 L 141/55 H 126/77 Pulse Oximetry 96 97 95 05/19/18 00:00 05/19/18 03:27 05/19/18 03:40 Temperature 97.9 F Pulse Rate 77 119 H 103 H Respiratory Rate 18 18 19 Blood Pressure 120/75 180/98 H 119/71 Pulse Oximetry 97 97 98 05/19/18 03:47 05/19/18 04:00 05/19/18 06:05 Temperature 97.7 F Pulse Rate 79 81 65 Respiratory Rate 18 18 Blood Pressure 117/62 103/62 Pulse Oximetry 98 99 05/19/18 08:00 Temperature 98.2 F Pulse Rate 69 Respiratory Rate 20 Blood Pressure 116/78 Pulse Oximetry 97 Intake & Output 05/18/18 05/19/18 05/19/18 18:59 06:59 18:59 Intake Total 1785 / 1785 715 / 715 Output Total 950 / 950 2200 / 2200 Balance 835 / 835 -1485 / -1485 Weight 54.8 kg Intake: IV 1545 / 1545 715 / 715 Zosyn 4.5 GM Premix 4.5 gm In 200 / 200 200 / 200 100 ml @ 200 mls/hr IV.SIG Q6H NOY Rx#:[id number] Vancomycin Inj 1,500 MG In NS 1030 / 1030 515 / 515 Inj 500 ML @ 250 mls/hr IV.SIG Q12H NOY Rx#:[id number] Keppra Inj 500 MG In NS Inj 100 315 / 315 ML @ 400 mls/hr IV.SIG TID NOY Rx#:[id number] Oral 240 / 240 Output: Urine 950 / 950 2200 / 2200 Other: Date of Last Bowel Movement 05/17/18 Narrative: perrla shaking off and on sats98% ativan 2mg iv stopped event and restarted again - Urinary Catheter Management Straight Cath placed during this visit: yes, but has since been removed by the nurse Reason for continuing: Not indwelling catheter Insertion date: 05/14/18 Insertion time: 18:30 Removal date: 05/14/18 Removal time: 18:45 Results - Labs CBC & Chem 7: 05/16/18 04:33 05/17/18 02:51 Microbiology 05/15/18 09:07 Blood - Peripheral Aerobic Blood Culture - Preliminary No growth in 4 days 05/15/18 09:07 Blood - Peripheral Anaerobic Blood Culture - Preliminary No growth in 4 days 05/15/18 09:11 Blood - Peripheral Aerobic Blood Culture - Final Staph. capitis-ureolyticus 05/15/18 09:11 Blood - Peripheral Anaerobic Blood Culture - Final Staphylococcus coag negative - Procedures Intubation/ventilation/extubation Assessment and Plan - Plan ativan 2mg x1 can repeat if needed stat eeg if continue go to icu cont vimpat 200mg bid increase keppra to 1500mg bid
--- NOTE | 2018-05-19 12:04 | P.PN ---
Physical Exam Vital signs: Vital Signs 05/18/18 16:00 05/18/18 20:00 05/19/18 00:00 Temperature 98 F 98.1 F 97.9 F Pulse Rate 70 75 77 Respiratory Rate 18 18 18 Blood Pressure 141/55 H 126/77 120/75 Pulse Oximetry 97 95 97 05/19/18 03:27 05/19/18 03:40 05/19/18 03:47 Temperature Pulse Rate 119 H 103 H 79 Respiratory Rate 18 19 18 Blood Pressure 180/98 H 119/71 117/62 Pulse Oximetry 97 98 98 05/19/18 04:00 05/19/18 06:05 05/19/18 08:00 Temperature 97.7 F 98.2 F Pulse Rate 81 65 69 Respiratory Rate 18 20 Blood Pressure 103/62 116/78 Pulse Oximetry 99 97 Intake & Output 05/18/18 05/19/18 05/19/18 18:59 06:59 18:59 Intake Total 1785 / 1785 715 / 715 Output Total 950 / 950 2200 / 2200 Balance 835 / 835 -1485 / -1485 Weight 54.8 kg Intake: IV 1545 / 1545 715 / 715 Zosyn 4.5 GM Premix 4.5 gm In 200 / 200 200 / 200 100 ml @ 200 mls/hr IV.SIG Q6H NOY Rx#:[id number] Vancomycin Inj 1,500 MG In NS 1030 / 1030 515 / 515 Inj 500 ML @ 250 mls/hr IV.SIG Q12H NOY Rx#:[id number] Keppra Inj 500 MG In NS Inj 100 315 / 315 ML @ 400 mls/hr IV.SIG TID NOY Rx#:[id number] Oral 240 / 240 Output: Urine 950 / 950 2200 / 2200 Other: Date of Last Bowel Movement 05/17/18 - Urinary Catheter Management Straight Cath placed during this visit: yes, but has since been removed by the nurse Reason for continuing: Not indwelling catheter Insertion date: 05/14/18 Insertion time: 18:30 Removal date: 05/14/18 Removal time: 18:45 Results - Labs CBC & Chem 7: 05/16/18 04:33 05/17/18 02:51 Microbiology 05/15/18 09:07 Blood - Peripheral Aerobic Blood Culture - Preliminary No growth in 4 days 05/15/18 09:07 Blood - Peripheral Anaerobic Blood Culture - Preliminary No growth in 4 days 05/15/18 09:11 Blood - Peripheral Aerobic Blood Culture - Final Staph. capitis-ureolyticus 05/15/18 09:11 Blood - Peripheral Anaerobic Blood Culture - Final Staphylococcus coag negative - Procedures Intubation/ventilation/extubation Assessment and Plan - Plan ativan 2mg x1 can repeat if needed stat eeg if continue go to icu cont vimpat 200mg bid increase keppra to 1500mg bid Addendum eeg at bedside no active seizures seen on eeg only a lot of muscle artifact.
[2018-05-19] MEDS: Senna/Docusate Sodium 8.6/50 MG Tablet PO SCH ×2 (16:28→21:00)
[2018-05-19] MEDS: Polyethylene Glycol 3350 17 GM Packet PO SCH ×2 (16:28→21:00)
[2018-05-19] MEDS: Enoxaparin Inj 40 MG/0.4 ML Syringe SQ SCH (19:32)
[2018-05-20] MEDS: Vancomycin Inj 1,500 MG in Sodium Chlor 0.9% Inj 500 ML IV.SIG SCH (00:39)
[2018-05-20] MEDS: Benzocaine/Menthol 15 MG/3.6 MG SF Lozenge BUCCAL PRN ×5 (00:55→21:48)
[2018-05-20] MEDS: Piperacil/Tazo 4.5 GM Premix 4.5 GM/100 ML BAG IV.SIG SCH ×2 (03:13→07:39)
[2018-05-20] MEDS: Famotidine 20 MG Tablet PO SCH ×2 (08:31→21:44)
[2018-05-20] MEDS: Polyethylene Glycol 3350 17 GM Packet PO SCH (08:31)
[2018-05-20] MEDS: Senna/Docusate Sodium 8.6/50 MG Tablet PO SCH (08:31)
[2018-05-20] MEDS: Lacosamide 100 MG Tablet PO SCH ×2 (08:31→21:44)
--- NOTE | 2018-05-20 09:12 | MG ---
cc: Kennedi Carvajal MD EEG NUMBER: [id number]. With photic done,10 mg Ativan given for shaking, eyes rolled back. EEG 05/10/2018, normal on Vimpat and Keppra. DESCRIPTION OF RECORD: Patient has a background rhythm of 8 Hz, 20-40 microvolts. EKG is sinus. There is a lot of artifact, but overall symmetrical well organized background. Leg shaking contributes to artifact, but no epileptiform features. Photic stimulation does elicit a posterior driving response. Overall well organized symmetrical background without any epileptiform features. Hyperventilation could not be done. Photic stimulation was not done. IMPRESSION: A normal electroencephalogram. No evidence of any epileptiform features in this recording. The shaking is not due to epileptic activity. Clinical correlation. Kennedi Carvajal MD DF/arie , 07:53 AM , 07:58 AM
--- NOTE | 2018-05-20 10:00 | P.PNIM ---
Subjective Interval history: No seizure-like activity overnight. Patient has recurrence of seizure-like activity this morning suggestive of possible seizure approximately 9:55 AM. No other complaints. No fevers. Patient seen this morning before seizure activity occurred. Physical Exam Vital signs: Vital Signs 05/19/18 16:00 05/19/18 19:37 05/19/18 20:00 Temperature Pulse Rate 80 83 82 Respiratory Rate 18 21 Blood Pressure 95/51 L Pulse Oximetry 97 96 05/20/18 00:00 05/20/18 04:00 Temperature 98.6 F 98.5 F Pulse Rate 64 67 Respiratory Rate 12 14 Blood Pressure 101/66 113/66 Pulse Oximetry 95 95 Intake & Output 05/19/18 05/20/18 05/20/18 18:59 06:59 18:59 Intake Total 810 / 810 2320 / 2320 Output Total 650 / 650 1325 / 1325 Balance 160 / 160 995 / 995 Weight 84.5 kg Intake: IV 310 / 310 820 / 820 Zosyn 4.5 GM Premix 4.5 gm In 100 / 100 200 / 200 100 ml @ 200 mls/hr IV.SIG Q6H NOY Rx#:[id number] Vancomycin Inj 1,500 MG In NS 515 / 515 Inj 500 ML @ 250 mls/hr IV.SIG Q12H NOY Rx#:[id number] Keppra Inj 500 MG In NS Inj 100 210 / 210 105 / 105 ML @ 400 mls/hr IV.SIG TID NOY Rx#:[id number] Oral 500 / 500 1500 / 1500 Output: Urine 650 / 650 1325 / 1325 Other: Date of Last Bowel Movement 05/17/18 05/17/18 # Bowel Movements 1 Narrative: GENERAL: NAD, A&Ox3 HEAD: Normocephalic. NECK: Supple, trachea midline. No lymphadenopathy. EYES: No scleral icterus. No injection or drainage. CARDIOVASCULAR: Regular rate and rhythm without murmurs, gallops, or rubs. RESPIRATORY: Breath sounds equal bilaterally. No accessory muscle use. GASTROINTESTINAL: Abdomen soft, non-tender, nondistended. MUSCULOSKELETAL: No cyanosis, or edema. SKIN: Warm and dry. NEURO: No focal neurological deficits. - Urinary Catheter Management Straight Cath placed during this visit: yes, but has since been removed by the nurse Reason for continuing: Not indwelling catheter Insertion date: 05/14/18 Insertion time: 18:30 Removal date: 05/14/18 Removal time: 18:45 Results - Labs CBC & Chem 7: 05/16/18 04:33 05/20/18 06:42 Laboratory Results - last 24 hr 05/20/18 06:42 Creatinine 1.11 Estimated GFR 76 L Microbiology 05/15/18 09:07 Blood - Peripheral Aerobic Blood Culture - Preliminary No growth in 4 days 05/15/18 09:07 Blood - Peripheral Anaerobic Blood Culture - Preliminary No growth in 4 days 05/15/18 09:11 Blood - Peripheral Aerobic Blood Culture - Final Staph. capitis-ureolyticus 05/15/18 09:11 Blood - Peripheral Anaerobic Blood Culture - Final Staphylococcus coag negative - Procedures Intubation/ventilation/extubation Assessment and Plan - Plan 33-year-old male admitted secondary to status epilepticus Monitor for resolution of seizure activity. Discontinue antibiotics. Ativan IV provided for seizure activity. Status epilepticus Seizure disorder Depression disorder NOS Recurrence of seizure today upon clearance for discharge PRN Ativan Neurology following Continue Keppra Continue Vimpat Status epilepticus resolved, patient extubated on 05/15/2018 Acute respiratory failure History of right lower lobe PE 2016 This was secondary to seizures Resolved Hypokalemia Monitor and replace as needed Fever/leukocytosis Possible sepsis Possible bacteremia Monitor blood cultures Continue Zosyn Alternatively this may have been a reactive phenomenon If blood cultures show contaminant we will discontinue antibiotics DVT prophylaxis SCDs Discharge Planning: Discharge will be considered based on further findings of blood culture, if contaminant is present rather than bacteremia we will consider discharge earlier in the presence of no further seizure activity
[2018-05-21] MEDS: Lacosamide 100 MG Tablet PO SCH ×2 (08:21→20:15)
[2018-05-21] MEDS: Famotidine 20 MG Tablet PO SCH ×2 (08:21→20:15)
--- NOTE | 2018-05-21 10:16 | P.PNIM ---
Subjective Interval history: No reported seizure activity in the last 24 hours. White blood cell count has normalized despite cessation of antibiotics, confirming contaminant as an etiology for his bacteria in the blood. No new complaints from the patient. Physical Exam Vital signs: Vital Signs 05/20/18 12:00 05/20/18 16:00 05/20/18 20:00 Temperature 98.8 F 98.2 F 98.4 F Pulse Rate 77 74 77 Respiratory Rate 18 16 21 Blood Pressure 99/56 L 89/53 L 104/54 L Pulse Oximetry 94 L 94 L 96 05/21/18 00:00 05/21/18 04:00 05/21/18 08:00 Temperature 98.5 F 98.6 F 97.4 F L Pulse Rate 72 69 62 Respiratory Rate 18 10 L 18 Blood Pressure 102/62 94/55 L 119/79 Pulse Oximetry 94 L 95 96 Intake & Output 05/20/18 05/21/18 05/21/18 18:59 06:59 18:59 Intake Total 1265 / 1265 Output Total 1500 / 1500 1999 Balance -235 / -235 -1999 Weight 88.5 kg Intake: IV 315 / 315 Keppra Inj 500 MG In NS Inj 100 315 / 315 ML @ 400 mls/hr IV.SIG TID NOY Rx#:[id number] Oral 950 / 950 Output: Urine 1500 / 1500 1999 Other: Date of Last Bowel Movement 05/20/18 05/20/18 05/20/18 # Bowel Movements 1 1 Narrative: GENERAL: NAD, A&Ox3 HEAD: Normocephalic. NECK: Supple, trachea midline. No lymphadenopathy. EYES: No scleral icterus. No injection or drainage. CARDIOVASCULAR: Regular rate and rhythm without murmurs, gallops, or rubs. RESPIRATORY: Breath sounds equal bilaterally. No accessory muscle use. GASTROINTESTINAL: Abdomen soft, non-tender, nondistended. MUSCULOSKELETAL: No cyanosis, or edema. SKIN: Warm and dry. NEURO: No focal neurological deficits. - Urinary Catheter Management Straight Cath placed during this visit: yes, but has since been removed by the nurse Reason for continuing: Not indwelling catheter Insertion date: 05/14/18 Insertion time: 18:30 Removal date: 05/14/18 Removal time: 18:45 Results - Labs CBC & Chem 7: 05/16/18 04:33 05/20/18 06:42 Microbiology 05/15/18 09:07 Blood - Peripheral Aerobic Blood Culture - Final No growth in 5 days 05/15/18 09:07 Blood - Peripheral Anaerobic Blood Culture - Final No growth in 5 days - Procedures Intubation/ventilation/extubation Assessment and Plan - Plan 33-year-old male admitted secondary to status epilepticus No seizure activity 24 hours. Neurology following. Will discharge based on neurology clearance. Status epilepticus Seizure disorder Depression disorder NOS Recurrence of seizure today upon clearance for discharge PRN Ativan Neurology following Continue Keppra Continue Vimpat Status epilepticus resolved, patient extubated on 05/15/2018 Acute respiratory failure History of right lower lobe PE 2016 This was secondary to seizures Resolved Hypokalemia Monitor and replace as needed Fever/leukocytosis Possible sepsis Possible bacteremia Monitor blood cultures Continue Zosyn Alternatively this may have been a reactive phenomenon If blood cultures show contaminant we will discontinue antibiotics DVT prophylaxis SCDs Discharge Planning: Discharge after cleared by neurology
[2018-05-21] MEDS: Benzocaine/Menthol 15 MG/3.6 MG SF Lozenge BUCCAL PRN ×2 (20:16→23:20)
[2018-05-22] MEDS: Lacosamide 100 MG Tablet PO SCH ×2 (08:59→21:29)
[2018-05-22] MEDS: Famotidine 20 MG Tablet PO SCH ×2 (09:00→21:29)
--- NOTE | 2018-05-22 10:08 | P.PN ---
Subjective Interval history: awake and alert, interactive no complains Physical Exam Vital signs: Vital Signs 05/21/18 12:00 05/21/18 16:00 05/21/18 20:00 Temperature 98 F 97.8 F 98.7 F Pulse Rate 65 81 71 Respiratory Rate 18 18 14 Blood Pressure 119/79 105/61 117/68 Pulse Oximetry 96 94 L 95 05/22/18 00:00 05/22/18 02:30 05/22/18 04:00 Temperature 97.9 F 98.3 F Pulse Rate 67 98 H 54 L Respiratory Rate 18 22 12 Blood Pressure 117/64 150/86 H 89/50 L Pulse Oximetry 96 97 96 Intake & Output 05/21/18 05/22/18 05/22/18 18:59 06:59 18:59 Intake Total 1210 / 1210 1065 / 1065 Output Total 1800 / 1800 1949 Balance -590 / -590 -885 / -885 Weight 86.6 kg Intake: IV 210 / 210 105 / 105 Keppra Inj 500 MG In NS Inj 100 210 / 210 105 / 105 105 / 105 ML @ 400 mls/hr IV.SIG TID NOY Rx#:[id number] Oral 1000 / 1000 960 / 960 Output: Urine 1800 / 1800 1949 Other: Date of Last Bowel Movement 05/21/18 05/21/18 # Bowel Movements 1 0 Narrative: awake and alert, no acute distress anicteric neck supple, no rigidity lungs- clear regular rhythm abdomen soft, nontender no sensory deficits moves all extrmeities spontaenously, no calf tenderenss - Urinary Catheter Management Straight Cath placed during this visit: yes, but has since been removed by the nurse Reason for continuing: Not indwelling catheter Insertion date: 05/14/18 Insertion time: 18:30 Removal date: 05/14/18 Removal time: 18:45 Results - Labs CBC & Chem 7: 05/16/18 04:33 05/22/18 06:49 Laboratory Results - last 24 hr 05/22/18 06:49 Creatinine 1.03 Estimated GFR 83 L - Procedures Intubation/ventilation/extubation Assessment and Plan - Plan 33-year-old male admitted secondary to status epilepticus No seizure activity 24 hours. Neurology following. Will discharge based on neurology clearance. Status epilepticus Seizure disorder Depression disorder NOS Neurology following Continue Keppra- change to po Continue Vimpat no further SZ S/P Acute respiratory failure History of right lower lobe PE 2016 This was secondary to seizures Resolved patient extubated on 05/15/2018 Hypokalemia- corrected Monitor and replace as needed Fever/leukocytosis Possible sepsis Possible bacteremia Monitor blood cultures Continue Zosyn Alternatively this may have been a reactive phenomenon If blood cultures show contaminant we will discontinue antibiotics DVT prophylaxis SCDs Discharge Planning: Discharge after cleared by neurology transfer to floor Increase activity- - out of bed to chair-0 PT consult
[2018-05-22] MEDS: levETIRAcetam 500 MG Tablet PO SCH ×2 (14:24→17:23)
[2018-05-22] MEDS: Benzocaine/Menthol 15 MG/3.6 MG SF Lozenge BUCCAL PRN (21:29)
--- NOTE | 2018-05-23 09:30 | P.PN ---
Subjective Interval history: no new issues seen by staff such as sz's. Physical Exam Vital signs: Vital Signs 05/22/18 10:00 05/22/18 12:00 05/22/18 14:00 Temperature 98.6 F Pulse Rate 64 60 63 Respiratory Rate 14 Blood Pressure 101/52 L Pulse Oximetry 94 L 05/22/18 16:00 05/22/18 16:30 05/22/18 17:00 Temperature 98.6 F Pulse Rate 74 66 78 Respiratory Rate 16 13 24 Blood Pressure 103/57 L 95/53 L 123/75 Pulse Oximetry 95 94 L 96 05/22/18 17:30 05/22/18 18:00 05/22/18 18:30 Temperature Pulse Rate 71 75 81 Respiratory Rate 32 H 29 H 18 Blood Pressure 124/81 133/88 131/76 Pulse Oximetry 97 98 97 05/22/18 19:00 05/22/18 19:30 05/22/18 20:00 Temperature 98 F Pulse Rate 69 74 64 Respiratory Rate 23 27 H 22 Blood Pressure 106/58 L 148/85 H 114/61 Pulse Oximetry 95 97 95 05/22/18 20:30 05/22/18 21:00 05/22/18 21:31 Temperature Pulse Rate 72 69 119 H Respiratory Rate 20 17 45 H Blood Pressure 118/62 118/66 174/79 H Pulse Oximetry 97 98 64 L 05/22/18 22:00 05/22/18 22:30 05/22/18 23:00 Temperature Pulse Rate 77 70 68 Respiratory Rate 16 18 16 Blood Pressure 116/59 L 104/59 L 109/58 L Pulse Oximetry 93 L 94 L 96 05/22/18 23:30 05/23/18 00:00 05/23/18 00:30 Temperature 98.8 F Pulse Rate 65 63 66 Respiratory Rate 16 16 20 Blood Pressure 103/49 L 104/50 L 97/55 L Pulse Oximetry 94 L 95 94 L 05/23/18 01:00 05/23/18 01:30 05/23/18 02:00 Temperature Pulse Rate 61 60 57 L Respiratory Rate 14 12 13 Blood Pressure 98/46 L 108/51 L 100/46 L Pulse Oximetry 95 95 96 05/23/18 02:30 05/23/18 03:00 05/23/18 03:30 Temperature Pulse Rate 73 57 L 56 L Respiratory Rate 17 14 11 L Blood Pressure 89/52 L 90/53 L 103/44 L Pulse Oximetry 96 98 95 05/23/18 04:00 05/23/18 06:00 Temperature 98.6 F Pulse Rate 57 L 98 H Respiratory Rate 11 L Blood Pressure 86/53 L Pulse Oximetry 96 Intake & Output 05/22/18 05/23/18 05/23/18 18:59 06:59 18:59 Intake Total 1205 / 1205 600 / 600 Output Total 1650 / 1650 1500 / 1500 Balance -445 / -445 -900 / -900 Intake: IV 205 / 205 Keppra Inj 500 MG In NS Inj 100 105 / 105 ML @ 400 mls/hr IV.SIG TID NOY Rx#:[id number] Oral 1000 / 1000 600 / 600 Output: Urine 1650 / 1650 1500 / 1500 Other: Date of Last Bowel Movement 05/21/18 05/22/18 # Bowel Movements 1 Narrative: awake alert fluent perrla motor normal - Urinary Catheter Management Straight Cath placed during this visit: yes, but has since been removed by the nurse Reason for continuing: Not indwelling catheter Insertion date: 05/14/18 Insertion time: 18:30 Removal date: 05/14/18 Removal time: 18:45 Results - Labs CBC & Chem 7: 05/16/18 04:33 05/22/18 06:49 - Procedures Intubation/ventilation/extubation Assessment and Plan - Plan ?sz most likely nonepileptic sz's -cont keppra /vimpat-will need and EMU at some point to eval for nonepileptic events. -reviewed his scans. -basically all his eeg's here were not epileptic even the last one during his ? sz -he can be d/c'd back to [facility] from my standpoint on meds.
--- NOTE | 2018-05-23 09:31 | P.PN ---
Subjective Interval history: awake and alert no complains of headahces, nausea or vomiting po intake 100% no pain complains Physical Exam Vital signs: Vital Signs 05/22/18 10:00 05/22/18 12:00 05/22/18 14:00 Temperature 98.6 F Pulse Rate 64 60 63 Respiratory Rate 14 Blood Pressure 101/52 L Pulse Oximetry 94 L 05/22/18 16:00 05/22/18 16:30 05/22/18 17:00 Temperature 98.6 F Pulse Rate 74 66 78 Respiratory Rate 16 13 24 Blood Pressure 103/57 L 95/53 L 123/75 Pulse Oximetry 95 94 L 96 05/22/18 17:30 05/22/18 18:00 05/22/18 18:30 Temperature Pulse Rate 71 75 81 Respiratory Rate 32 H 29 H 18 Blood Pressure 124/81 133/88 131/76 Pulse Oximetry 97 98 97 05/22/18 19:00 05/22/18 19:30 05/22/18 20:00 Temperature 98 F Pulse Rate 69 74 64 Respiratory Rate 23 27 H 22 Blood Pressure 106/58 L 148/85 H 114/61 Pulse Oximetry 95 97 95 05/22/18 20:30 05/22/18 21:00 05/22/18 21:31 Temperature Pulse Rate 72 69 119 H Respiratory Rate 20 17 45 H Blood Pressure 118/62 118/66 174/79 H Pulse Oximetry 97 98 64 L 05/22/18 22:00 05/22/18 22:30 05/22/18 23:00 Temperature Pulse Rate 77 70 68 Respiratory Rate 16 18 16 Blood Pressure 116/59 L 104/59 L 109/58 L Pulse Oximetry 93 L 94 L 96 05/22/18 23:30 05/23/18 00:00 05/23/18 00:30 Temperature 98.8 F Pulse Rate 65 63 66 Respiratory Rate 16 16 20 Blood Pressure 103/49 L 104/50 L 97/55 L Pulse Oximetry 94 L 95 94 L 05/23/18 01:00 05/23/18 01:30 05/23/18 02:00 Temperature Pulse Rate 61 60 57 L Respiratory Rate 14 12 13 Blood Pressure 98/46 L 108/51 L 100/46 L Pulse Oximetry 95 95 96 05/23/18 02:30 05/23/18 03:00 05/23/18 03:30 Temperature Pulse Rate 73 57 L 56 L Respiratory Rate 17 14 11 L Blood Pressure 89/52 L 90/53 L 103/44 L Pulse Oximetry 96 98 95 05/23/18 04:00 05/23/18 06:00 Temperature 98.6 F Pulse Rate 57 L 98 H Respiratory Rate 11 L Blood Pressure 86/53 L Pulse Oximetry 96 Intake & Output 05/22/18 05/23/18 05/23/18 18:59 06:59 18:59 Intake Total 1205 / 1205 600 / 600 Output Total 1650 / 1650 1500 / 1500 Balance -445 / -445 -900 / -900 Intake: IV 205 / 205 Keppra Inj 500 MG In NS Inj 100 105 / 105 ML @ 400 mls/hr IV.SIG TID NOY Rx#:[id number] Oral 1000 / 1000 600 / 600 Output: Urine 1650 / 1650 1500 / 1500 Other: Date of Last Bowel Movement 05/21/18 05/22/18 # Bowel Movements 1 Narrative: awake and alert, no acute distress anicteric, pupils ERTL, EOM full range of motion neck supple, no rigidity lungs- clear regular rhythm abdomen soft, nontender no sensory deficits moves all extrmieties spontaenously, no calf tendernss motor 5/5 no sensory deficits DTRs ++ all extremities - Urinary Catheter Management Straight Cath placed during this visit: yes, but has since been removed by the nurse Reason for continuing: Not indwelling catheter Insertion date: 05/14/18 Insertion time: 18:30 Removal date: 05/14/18 Removal time: 18:45 Results - Labs CBC & Chem 7: 05/16/18 04:33 05/22/18 06:49 - Procedures Intubation/ventilation/extubation Assessment and Plan - Plan 33-year-old male admitted secondary to status epilepticus No seizure activity last 72 hours Status epilepticus Seizure disorder Depression disorder NOS Neurology following- d/w Dr. Carvajal - cleared for DC Continue Keppra- 1500 mg bid Continue Vimpat 200 mg bid no further SZ S/P Acute respiratory failure History of right lower lobe PE 2016 This was secondary to seizures Resolved patient extubated on 05/15/2018 Hypokalemia- corrected Monitor and replace as needed Fever/leukocytosis Possible sepsis Possible bacteremia Monitor blood cultures- negative Continue Zosyn Alternatively this may have been a reactive phenomenon If blood cultures show contaminant we will discontinue antibiotics DC antibiotics DVT prophylaxis SCDs Discharge Planning: DC today OP ff up with neurology at one point- [facility]- EMU unit for evaluation
--- NOTE | 2018-05-23 09:37 | P.DS ---
Date of admission: 05/09/18 17:14 Primary care physician: No Primary Care Physician Anticipated date of discharge: 05/23/18 Brief History from admission: Patient 33-year-old male history of seizure disorder versus pseudoseizures brought to the ED for seizure activity. Patient is on Keppra and Vimpat. Allergic to multiple seizure medications. Today patient had seizures while in police custody. Mostly tonic-clonic received Versed 2 mg IM x2 by EMS. In the emergency department he had multiple episodes of seizure and received total 4 mg IV Ativan. Described as mostly tonic activity. Patient was recently admitted to the ICU and had workup for seizures, EEG and MRI were negative at that time. I evaluated the patient in the ED. he appears slightly lethargic but not having seizures at this time. He received 4 mg of IV Ativan in the ED, and was loaded with IV Keppra 1000 mg. Patient will be admitted to ICU will be placed back on first home dose of patent Keppra. Patient update on day of discharge: awaek and a alert, intractive, speech spontaenousl Neuro exam- unremarkable DS: Medications - Discharge Medications Prescriptions: lacosamide [Vimpat] 200 mg PO BID #60 tab levetiracetam [Keppra] 1,500 mg PO BID #120 tab sennosides-docusate sodium [Senna Plus] 2 tab PO BID #120 tab DS: Summary Hospital Course: 33-year-old male admitted secondary to status epilepticus No seizure activity last 72 hours Status epilepticus Seizure disorder Depression disorder NOS Neurology following- d/w Dr. Carvajal - cleared for DC Continue Keppra- 1500 mg bid Continue Vimpat 200 mg bid no further SZ S/P Acute respiratory failure History of right lower lobe PE 2016 This was secondary to seizures Resolved patient extubated on 05/15/2018 Hypokalemia- corrected Monitor and replace as needed Fever/leukocytosis Possible sepsis Possible bacteremia Monitor blood cultures- negative Continue Zosyn Alternatively this may have been a reactive phenomenon If blood cultures show contaminant we will discontinue antibiotics DC antibiotics DVT prophylaxis SCDs Discharge Planning: DC today OP ff up with neurology at one point- when he is released from [facility]- refer to [facility]- EMU unit for evaluation - Time Spent with Patient Total time spent providing and/or coordinating discharge services: Less than 30 minutes - Quality: VTE Deep Vein Thrombosis/Pulmonary Embolism Present on Admission: No Exam Vital signs: Vital Signs 05/22/18 10:00 05/22/18 12:00 05/22/18 14:00 Temperature 98.6 F Pulse Rate 64 60 63 Respiratory Rate 14 Blood Pressure 101/52 L Pulse Oximetry 94 L 05/22/18 16:00 05/22/18 16:30 05/22/18 17:00 Temperature 98.6 F Pulse Rate 74 66 78 Respiratory Rate 16 13 24 Blood Pressure 103/57 L 95/53 L 123/75 Pulse Oximetry 95 94 L 96 05/22/18 17:30 05/22/18 18:00 05/22/18 18:30 Temperature Pulse Rate 71 75 81 Respiratory Rate 32 H 29 H 18 Blood Pressure 124/81 133/88 131/76 Pulse Oximetry 97 98 97 05/22/18 19:00 05/22/18 19:30 05/22/18 20:00 Temperature 98 F Pulse Rate 69 74 64 Respiratory Rate 23 27 H 22 Blood Pressure 106/58 L 148/85 H 114/61 Pulse Oximetry 95 97 95 05/22/18 20:30 05/22/18 21:00 05/22/18 21:31 Temperature Pulse Rate 72 69 119 H Respiratory Rate 20 17 45 H Blood Pressure 118/62 118/66 174/79 H Pulse Oximetry 97 98 64 L 05/22/18 22:00 05/22/18 22:30 05/22/18 23:00 Temperature Pulse Rate 77 70 68 Respiratory Rate 16 18 16 Blood Pressure 116/59 L 104/59 L 109/58 L Pulse Oximetry 93 L 94 L 96 05/22/18 23:30 05/23/18 00:00 05/23/18 00:30 Temperature 98.8 F Pulse Rate 65 63 66 Respiratory Rate 16 16 20 Blood Pressure 103/49 L 104/50 L 97/55 L Pulse Oximetry 94 L 95 94 L 05/23/18 01:00 05/23/18 01:30 05/23/18 02:00 Temperature Pulse Rate 61 60 57 L Respiratory Rate 14 12 13 Blood Pressure 98/46 L 108/51 L 100/46 L Pulse Oximetry 95 95 96 05/23/18 02:30 05/23/18 03:00 05/23/18 03:30 Temperature Pulse Rate 73 57 L 56 L Respiratory Rate 17 14 11 L Blood Pressure 89/52 L 90/53 L 103/44 L Pulse Oximetry 96 98 95 05/23/18 04:00 05/23/18 06:00 Temperature 98.6 F Pulse Rate 57 L 98 H Respiratory Rate 11 L Blood Pressure 86/53 L Pulse Oximetry 96 Intake & Output 05/22/18 05/23/18 05/23/18 18:59 06:59 18:59 Intake Total 1205 / 1205 600 / 600 Output Total 1650 / 1650 1500 / 1500 Balance -445 / -445 -900 / -900 Intake: IV 205 / 205 Keppra Inj 500 MG In NS Inj 100 105 / 105 ML @ 400 mls/hr IV.SIG TID NOY Rx#:[id number] Oral 1000 / 1000 600 / 600 Output: Urine 1650 / 1650 1500 / 1500 Other: Date of Last Bowel Movement 05/21/18 05/22/18 # Bowel Movements 1 Narrative: awake and alert, no acute distress anicteric, pupils ERTL, EOM full range of motion neck supple, no rigidity lungs- clear regular rhythm abdomen soft, nontender no sensory deficits moves all extrmieties spontaenously, no calf tendernss motor 5/5 no sensory deficits DTRs ++ all extremities Results Procedures completed during hospitalization: Intubation/ventilation/extubation - Impressions ITS Impressions Head MRI 05/10/18 00:00 CONCLUSION: 1. Negative MRI of the brain performed without and with contrast. Shoulder X-Ray 05/10/18 00:00 CONCLUSION: No fracture or subluxation of the right shoulder. Head CT 05/12/18 12:11 CONCLUSION: 1. Unremarkable and stable CT scan of the brain. . Chest X-Ray 05/16/18 06:00 CONCLUSION: Improved aeration at the lung bases with mild residual atelectasis at the left lung base. Discharge Plan - Discharge Disposition Patient Disposition: [address] [employer] - Discharge Condition Condition: Stable - Discharge Order Discharge Orders: Discharge Order (Routine); Ordered 05/23/18 Ordered By: Turner Jaquez - Discharge Details Anticipated Discharge Date: 05/23/18 Discharge Comment: at one point - OP referral to [facility]- EMU unit- can be done as OP - once released from [facility] - Physicians Team Primary Care Provider: Primary Care Physici,No Attending Provider: Turner Jaquez Other Providers: Yunier Santana MD ; Michael López MD
[2018-05-23 09:41] VITALS: BP 112/78; PULSE 69; RESP 0; TEMP 98.7; O2SAT 94
[2018-05-23] MEDS: levETIRAcetam 500 MG Tablet PO SCH (09:52)
[2018-05-23] MEDS: Famotidine 20 MG Tablet PO SCH (09:52)
[2018-05-23] MEDS: Lacosamide 100 MG Tablet PO SCH (09:52)
== END 2018-05-23 12:55 ==
LOC: NEPE 15:34 → NEDA 17:14 → HIMC 19:50 → N05 05-11 19:30 → N03 05-12 12:03 → N05 05-17 18:02 → UNDODISIN 05-19 14:11 → HIMC 05-19 14:45
PROVIDERS: ADMIT Internal Medicine; ATTEND Internal Medicine